=== PATIENT | male | born 1945 | race Caucasian/White ===

== ENCOUNTER 2016-12-16 09:23 | Inpatient (IN) | payer MEDICARE, BC ==
[~2016-12-16] VITALS: Ht 172.7 cm; Wt 63.6 kg
[~2016-12-16 09:23] MED LIST: AMIO200T2 PO; AMLO-218 PO; APIX5TAB PO; CALC667T2 PO; LACT10SO5 PO; LISI20TA11 PO; LORA10CA PO; SYN1 PO
--- NOTE | 2016-12-16 10:22 | RADRPT ---
PROCEDURE: CHEST 1VW CLINICAL INDICATION: Hypotension TECHNIQUE: Single frontal view of the chest was obtained COMPARISON: None. FINDINGS: The cardiac size is severe cardiomegaly. Aortic vascular calcifications are demonstrated. There is mild pulmonary vascular congestion. Trace bilateral effusions with associated atelectasis. Mild degenerative changes of the visualized osseous structures are visualized. IMPRESSION: 1. Severe cardiomegaly with mild pulmonary vascular congestion, interstitial edema, and trace bilate ral effusions with associated atelectasis. 2. Atherosclerosis. RPTAT:PP .Cortes Beal MD, MD Date Time Electronically viewed and signed by .Cortes Beal MD, on 12/16/2016 10:21 .V/
[2016-12-16] MEDS ORDERED: ASPI-664 PO (10:23)
[2016-12-16] MEDS ORDERED: ATOR20TA38 PO (10:24)
[2016-12-16] MEDS ORDERED: ESCI5TAB PO (10:27)
[2016-12-16] MEDS ORDERED: TEMA15CA6 PO (10:28)
[2016-12-16] MEDS ORDERED: LEVA0.634 INHALATION (10:29)
[2016-12-16 10:36] LABS: ADD SCAN DIFF NO
[2016-12-16 10:55] LABS: BASOPHIL # 0.1 10^3/ul (0.0-0.1); BASOPHILS % 0.3 % (0.0-2.0); EOSINOPHILS # 0.1 10^3/ul (0.0-0.5); EOSINOPHILS % 0.7 % (0.0-7.0); HEMATOCRIT 25.8 % (42.0-52.0); HEMOGLOBIN 8.3 g/dl (14.0-18.0); LYMPHOCYTES # 0.8 10^3/ul (0.8-2.9); LYMPHOCYTES % 4.3 % (15.0-51.0); MEAN CORPUSCULAR HEMOGLOBIN 28.7 pg (29.0-33.0); MEAN CORPUSCULAR HGB CONC 32.2 g/dl (32.0-37.0); MEAN CORPUSCULAR VOLUME 89.3 fl (82.0-101.0); MEAN PLATELET VOLUME 9.9 fl (7.4-10.4); MONOCYTE # 1.3 10^3/ul (0.3-0.9); MONOCYTES % 7.1 % (0.0-11.0); NEUTROPHIL # 16.1 10^3/ul (1.6-7.5); NEUTROPHILS % 85.5 % (39.0-77.0); PLATELET COUNT 451 10^3/UL (140-415); RED BLOOD COUNT 2.89 10^6/ul (4.70-6.10); RED CELL DISTRIBUTION WIDTH 17.4 % (11.5-14.5); WHITE BLOOD COUNT 18.8 10^3/ul (4.8-10.8)
[2016-12-16 11:03] LABS: ALANINE AMINOTRANSFERASE 28 IU/L (13-69); ALBUMIN/GLOBULIN RATIO 0.76; ALKALINE PHOSPHATASE 228 IU/L (42-121); ANION GAP 16 (8-16); ASPARTATE AMINO TRANSFERASE 20 IU/L (15-46); BILIRUBIN,INDIRECT 0.1 mg/dl (0-1.1); BILIRUBIN,TOTAL 0.4 mg/dl (0.2-1.3); BLOOD UREA NITROGEN 46 mg/dl (7-20); CALCIUM 8.8 mg/dl (8.4-10.2); CARBON DIOXIDE 30 mmol/L (21-31); CHLORIDE 92 mmol/L (97-110); CREATININE 5.33 mg/dl (0.61-1.24); GLUCOSE 133 mg/dl (70-220); POTASSIUM 4.4 mmol/L (3.5-5.1); SODIUM 134 mmol/L (135-144); TOTAL PROTEIN 6.9 g/dl (6.1-8.1)
[2016-12-16 11:27] LABS: B-TYPE NATRIURETIC PEPTIDE 54300 PG/ML (0-125); TROPONIN-I < 0.012 ng/ml (0.00-0.12)
--- NOTE | 2016-12-16 11:34 | ERA ---
ER Documentation Chief Complaint Date/Time DATE: 12/16/16 TIME: 11:34 Chief Complaint hypotension HPI 71-year-old male legally blind with a history of end-stage renal disease on dialysis M/W/F, hypertension, COPD, hyperlipidemia, chronic atrial fibrillation on Eliquis and hypothyroidism sent to the ED by rescue ambulance from dialysis unit for hypotension. Apparently dialysis could not be performed because his blood pressure was low he was sent to the ED for further evaluation. Patient complains of mild shortness of breath but denies chest pain or palpitations. No abdominal pain, nausea vomiting. No headache or neck pain. No leg pain or swelling. No fevers or chills. ROS All systems reviewed and are negative except as per history of present illness. Medications Home Meds Reported Medications Levalbuterol Hcl* (Levalbuterol Hcl*) 0.63 Mg/3 Ml Vial.neb, 0.63 MG INHALATION Q6H Y for WHEEZING AND SOB, VIAL 12/16/16 Temazepam* (Restoril*) 15 Mg Capsule, 15 MG PO HS Y for INSOMNIA, CAP 12/16/16 Escitalopram Oxalate* (Lexapro*) Unknown Strength Tablet, PO DAILY, #30 TAB 12/16/16 Atorvastatin Calcium* (Atorvastatin Calcium*) 20 Mg Tablet, 20 MG PO QHS, #30 TAB 12/16/16 Aspirin (Low Dose Aspirin) 81 Mg Tablet.dr, 81 MG PO DAILY, #30 TAB 12/16/16 Lactulose* (Lactulose*) 10 Gm/15 Ml Solution, 20 GM PO HS, ML 04/15/16 Calcium Acetate* (Phoslo*) 667 Mg Tablet, 667 MG PO WITH MEALS, TAB 04/15/16 Lisinopril* (Lisinopril*) 20 Mg Tablet, 20 MG PO DAILY, #30 TAB 04/15/16 Levothyroxine Sodium* (Synthroid*) 100 Mcg Tablet, 100 MCG PO BEFORE BREAKFAST, #30 TAB 04/15/16 Apixaban* (Eliquis*) 5 Mg Tablet, 5 MG PO BID, TAB 04/15/16 Amiodarone Hcl* (Amiodarone Hcl*) 200 Mg Tablet, 200 MG PO DAILY, #30 TAB 04/15/16 Loratadine* (Claritin*) 10 Mg Capsule, 10 MG PO DAILY, CAP 04/15/16 Discontinued Reported Medications Amlodipine Besylate* (Norvasc*) 10 Mg Tablet, 10 MG PO DAILY, TAB 04/15/16 Allergies Allergies: Coded Allergies: No Known Allergy (Unverified , 12/16/16) PMhx/Soc Reviewed in chart. As per HPI. History of Surgery: Yes (R CATARACT AV shunt left upper extremity) Anesthesia Reaction: No Hx Neurological Disorder: Yes (CVA, GEN WEAKNESS) Hx Respiratory Disorders: Yes (ASTHMA) Hx Cardiac Disorders: Yes (A-FIB, HTN) Hx Psychiatric Problems: Yes (DEPRESSION) Hx Alcohol Use: No Hx Substance Use: No Hx Tobacco Use: No FmHx Not relevant to presenting complaint Physical Exam Vitals Vital Signs Date Time Temp Pulse Resp B/P Pulse Ox O2 Delivery O2 Flow Rate FiO2 12/16/16 10:11 Nasal Cannula 12/16/16 09:26 97.5 69 18 97/56 97 Physical Exam Const: Alert, moderate distress. Head: Atraumatic Eyes: Normal Conjunctiva ENT: Normal External Ears, Nose and Mouth. Neck: Full range of motion. JVD Resp: Breath sounds diminished bilaterally with crackles extending care home up both lung [place]. No wheezing. Cardio: Irregular and rhythm, no murmurs Abd: Soft, non tender, non distended. Normal bowel sounds Skin: No petechiae or rashes Back: No midline or flank tenderness Ext: No cyanosis, or edema. AV shunt left upper extremity with palpable thrill. Wound left heel. Neur: Awake and alert Psych: Normal Mood and Affect Result Diagram: 12/16/16 1020 12/16/16 1020 Results 24 hrs Laboratory Tests Test 12/16/16 10:20 White Blood Count 18.810^3/ul Red Blood Count 2.8910^6/ul Hemoglobin 8.3g/dl Hematocrit 25.8% Mean Corpuscular Volume 89.3fl Mean Corpuscular Hemoglobin 28.7pg Mean Corpuscular Hemoglobin Concent 32.2g/dl Red Cell Distribution Width 17.4% Platelet Count 39736^3/UL Mean Platelet Volume 9.9fl Neutrophils % 85.5% Lymphocytes % 4.3% Monocytes % 7.1% Eosinophils % 0.7% Basophils % 0.3% Nucleated Red Blood Cells % 0.0/100WBC Neutrophils # 16.110^3/ul Lymphocytes # 0.810^3/ul Monocytes # 1.310^3/ul Eosinophils # 0.110^3/ul Basophils # 0.110^3/ul Nucleated Red Blood Cells # 0.010^3/ul Sodium Level 134mmol/L Potassium Level 4.4mmol/L Chloride Level 92mmol/L Carbon Dioxide Level 30mmol/L Anion Gap 16 Blood Urea Nitrogen 46mg/dl Creatinine 5.33mg/dl Glucose Level 133mg/dl Calcium Level 8.8mg/dl Total Bilirubin 0.4mg/dl Direct Bilirubin 0.30mg/dl Indirect Bilirubin 0.1mg/dl Aspartate Amino Transf (AST/SGOT) 20IU/L Alanine Aminotransferase (ALT/SGPT) 28IU/L Alkaline Phosphatase 228IU/L Troponin I < 0.012ng/ml B-Type Natriuretic Peptide 50193KR/ML Total Protein 6.9g/dl Albumin 3.0g/dl Globulin 3.90g/dl Albumin/Globulin Ratio 0.76 Current Medications Medications (Trade) Dose Ordered Sig/Marv Route PRN Reason Start Time Stop Time Status Last Admin Dose Admin Ondansetron HCl (Zofran Inj) 4 mg ER BRIDGE PRN IV NAUSEA AND/OR VOMITING 12/16/16 12:30 12/17/16 12:29 Acetaminophen (Tylenol Tab) 650 mg ER BRIDGE PRN PO MILD PAIN/FEVER 12/16/16 12:30 12/17/16 12:29 EKG: TIME: 09:48. Atrial fibrillation. Ventricular rate 70. No acute ST segment elevation or depression. Poor R-wave progression in the anterior leads. EP Interpretation: Abnormal EKG. IMAGING: PROCEDURE: CHEST 1VW CLINICAL INDICATION: Hypotension TECHNIQUE: Single frontal view of the chest was obtained COMPARISON: None. FINDINGS: The cardiac size is severe cardiomegaly. Aortic vascular calcifications are demonstrated. There is mild pulmonary vascular congestion. Trace bilateral effusions with associated atelectasis. Mild degenerative changes of the visualized osseous structures are visualized. IMPRESSION: 1. Severe cardiomegaly with mild pulmonary vascular congestion, interstitial edema, and trace bilateral effusions with associated atelectasis. 2. Atherosclerosis. RPTAT:PP .Cortes Beal MD, MD Date Time Electronically viewed and signed by .Cortes Beal MD, MD on 12/16/2016 10:21 .V/ Procedures/MDM DOCUMENTS REVIEWED: ED nurse, clinic notes, dialysis MEDICAL DECISION MAKIN-year-old male legally blind with a history of end- stage renal disease on dialysis M/W/F, hypertension, COPD, hyperlipidemia, chronic atrial fibrillation on Eliquis and hypothyroidism sent to the ED by rescue ambulance from dialysis unit for hypotension. Patient observed in the ED for approximately 3 hours. Blood pressure is normal and hemodynamically stable. No hyperkalemia but radiographic evidence of volume overload with shortness of breath. Leukocytosis of uncertain etiology. No pneumonia. Abdominal exam is benign without tenderness, rebound, guarding or signs of peritonitis. Leukocytosis possibly secondary to left heel wound. Patient will be admitted to telemetry observation for urgent dialysis. Counseled patient regarding diagnosis, diagnostic results and plan for admission. CALLS/CONSULTS: Time 12:00, Dr. Alonso, Recommends admission to telemetry observation. PATIENT CARE TRANSITIONED: Time: 12:05, Dr. Alonso. Departure Diagnosis: Primary Impression: Hypotension Qualified Code: I95.9 - Hypotension, unspecified hypotension type Additional Impressions: End stage renal disease on dialysis Volume overload Qualified Code: E87.70 - Hypervolemia, unspecified hypervolemia type Leukocytosis Qualified Code: D72.829 - Leukocytosis, unspecified type Non healing left heel wound Chronic atrial fibrillation Condition: Serious AMADEO ESTES MD December 16, 2016 11:34
[2016-12-16] MEDS ORDERED: ACETAMINOPHEN 325 MG TAB PO PRN (12:30)
[2016-12-16] MEDS ORDERED: ONDANSETRON 4 MG INJ IV PRN ×2 (12:30→16:30)
[2016-12-16] MEDS ORDERED: LEVOFLOXACIN 500MG/D5W (PMX) 100 ML IVPB ONE (13:00)
[2016-12-16] MEDS ORDERED: VANCOMYCIN 1 GM (PMX) 250 ML IVPB SCH (13:00)
--- NOTE | 2016-12-16 13:27 | RADRPT ---
PROCEDURE: XR Left Foot. CLINICAL INDICATION: Left foot pain. TECHNIQUE: Three views. Frontal, lateral, and oblique. COMPARISON: None. FINDINGS: There is no fracture or dislocation. Vascular calcifications are present consistent with atherosclerosis. There is diffuse osteopenia. There are degenerative changes of the first metatarsal phalangeal join t with osteophytes noted. There is no lytic or blastic lesion. There is no radiopaque foreign body. IMPRESSION: 1. Atherosclerosis. 2. Diffuse osteopenia. 3. Degenerative change of the first metatarsal phalangeal joint. 4. No lytic lesion. No evidence of osteomyelitis. RPTAT: QQ .Kalpesh Hollingsworth MD, MD Date Time Electronically viewed and signed by .Kalpesh Hollingsworth MD, on 12/16/2016 13:27 .R/
--- NOTE | 2016-12-16 16:02 | CONS ---
Date/Time of Note Date/Time of Note DATE: 12/16/16 TIME: 15:59 Assessment/Plan Assessment/Plan Chief Complaint/Hosp Course [id number] A/P SEPSIS ESRD HTN COPD AFIB ASHD DYSLIPEDEMIA PLAN HD NEEDED AND MWF ANTIBIOTIC Problems: Consultation Date/Type/Reason Admit Date/Time Initial Consult Date Type of Consultation: RENAL 24 HR Interval Summary Constitutional: no complaints Exam/Review of Systems Vital Signs Vitals Vital Signs Date Time Temp Pulse Resp B/P Pulse Ox O2 Delivery O2 Flow Rate FiO2 12/16/16 12:28 98.0 63 126/66 12/16/16 10:11 Nasal Cannula 12/16/16 09:26 18 97 Exam Neck: supple Respiratory: diminished breath sounds Cardiovascular: regular rate and rhythm Gastrointestinal: bowel sounds, soft Results Result Diagram: 12/16/16 1020 12/16/16 1020 Results 24 hrs Laboratory Tests Test 12/16/16 10:20 White Blood Count 18.8 H Red Blood Count 2.89 L Hemoglobin 8.3 L Hematocrit 25.8 L Mean Corpuscular Volume 89.3 Mean Corpuscular Hemoglobin 28.7 L Mean Corpuscular Hemoglobin Concent 32.2 Red Cell Distribution Width 17.4 H Platelet Count 451 H Mean Platelet Volume 9.9 Neutrophils % 85.5 H Lymphocytes % 4.3 L Monocytes % 7.1 Eosinophils % 0.7 Basophils % 0.3 Nucleated Red Blood Cells % 0.0 Neutrophils # 16.1 H Lymphocytes # 0.8 Monocytes # 1.3 H Eosinophils # 0.1 Basophils # 0.1 Nucleated Red Blood Cells # 0.0 Sodium Level 134 L Potassium Level 4.4 Chloride Level 92 L Carbon Dioxide Level 30 Anion Gap 16 Blood Urea Nitrogen 46 H Creatinine 5.33 H Glucose Level 133 Calcium Level 8.8 Total Bilirubin 0.4 Direct Bilirubin 0.30 H Indirect Bilirubin 0.1 Aspartate Amino Transf (AST/SGOT) 20 Alanine Aminotransferase (ALT/SGPT) 28 Alkaline Phosphatase 228 H Troponin I < 0.012 B-Type Natriuretic Peptide 33031 H Total Protein 6.9 Albumin 3.0 L Globulin 3.90 H Albumin/Globulin Ratio 0.76 MAGUI PINEDA MD December 16, 2016 16:02
[2016-12-16 16:18] VITALS: TEMP 98.1
[2016-12-16] MEDS ORDERED: VANCOMYCIN IV PER PHARMACY XX SCH (16:30)
[2016-12-16] MEDS ORDERED: LEVALBUTEROL (NEB) 0.63 MG/3 ML AMP NEB PRN (16:30)
[2016-12-16] MEDS ORDERED: LEVOFLOXACIN 500MG/D5W (PMX) 100 ML IVPB SCH (16:30)
--- NOTE | 2016-12-16 16:37 | HP ---
Date/Time of Note Date/Time of Note DATE: 12/16/16 TIME: 16:35 Assessment/Plan VTE Prophylaxis VTE Prophylaxis Intervention: other (eliquis) Lines/Catheters IV Catheter Type (from Nrs): Saline Lock Assessment/Plan Assessment/Plan 71 yo M sent from dialysis center w due to low blood pressure during hemodialysis managed for the followin. Sepsis likely secondary to infected heel ulcer with impending shock 2. Fluid overload likely secondary to incomplete hemodialysis 3. Infected heel ulcer left leg 4. Hypothyroidism 5. High blood pressure: controlled 6. Chronic atrial fibrillation rate controlled 7. Reported history of diabetes type 2 controlled 8. Dyslipidemia 9. End-stage renal disease on hemodialysis Monday / Monday / Monday 10. Anemia of chronic kidney disease 11. History of cirrhosis Plan: 1. Admit patient to telemetry floor 2. Obtain blood and wound cultures / begin empiric antibiotics / ID consult 3. Podiatry consult for leg wound / probable MRI to rule out osteo-if okay with podiatry / wound care consult for in-house dressings. 4. Continue home medications for atrial fibrillation, high blood pressure, thyroid disease and dyslipidemia 5. Patient may need HD today as CXR still shows fluid overload 6. PRN pain control/ antiemetics/ antipyretics/ supportive care Prophylaxis: Eliquis/PPI HPI/ROS Admit Date/Time Admit Date/Time December 16, 2016 Hx of Present Illness Presenting complaint: Low blood pressure History of presenting complaint: 71-year-old male sent to the emergency room from dialysis center after he was found to have low blood pressure while there. Patient is a poor historian he is unable to tell me much more. He just tells me he is doing okay. He also denies any form of pain apart from pain in his left leg. Evaluation of his left leg reveals a deep pressure ulcer that could be infected and be a source of infection. Patient is being admitted for antibiotic wound care podiatry review and further management. He will also need to be continued on hemodialysis in-house. ROS Unable to obtain as patient is very poor historian. See HPI for findings. PMH/Family/Social Past Medical History 1. End-stage renal disease on hemodialysis 2. Hypothyroidism 3. Dyslipidemia 4. Chronic atrial fibrillation 5. Chronic anemia 6. Diabetes mellitus 7. Asthma 8. Cirrhosis Past Surgical History 1. Cataract surgery 2. [employer] shunt left arm. Family History Significant Family History: other (non contributory) Social History Resides in [facility] facility. Smoking Status: Current every day smoker Exam/Review of Systems Vital Signs Vitals Vital Signs Date Time Temp Pulse Resp B/P Pulse Ox O2 Delivery O2 Flow Rate FiO2 12/16/16 16:18 98.1 71 113/71 12/16/16 10:11 Nasal Cannula 12/16/16 09:26 18 97 Exam Exam General. Alert oriented to self place but not date and time elderly male, no distress. HEENT: Normocephalic, atraumatic, pupils equal and reactive, mild conjunctival pallor, mild scleral icterus Neck: Supple, nontender, no adenopathy Chest: Diminished breath sounds bilaterally, probable faint crackles in the bases bilaterally, detailed exam difficult. Cardiovascular: Irregularly irregular heart sounds, no murmur. Abdomen: Soft nontender nondistended with normoactive bowel sounds. Extremities: Left lower extremity with stage IV ulcer on the heel and yellowish discoloration, large AV shunt left upper extremity with palpable bruit. Neuro: Alert, no focal deficit, elderly male, mildly lethargic Psych: Forgetful, cooperative with exam. Calm Labs Result Diagram: 12/16/16 1020 12/16/16 1020 Medications Medications Current Medications Amiodarone HCl (Cordarone) 200 mg DAILY PO ; Start 12/17/16 at 09:00; Status UNV Apixaban (Eliquis) 5 mg BID PO ; Start 12/16/16 at 21:00; Status UNV Aspirin (Halfprin) 81 mg DAILY PO ; Start 12/17/16 at 09:00; Status UNV Atorvastatin Calcium (Lipitor) 20 mg QHS PO ; Start 12/16/16 at 21:00; Status UNV Lactulose (Enulose) 20 gm HS PO ; Start 12/16/16 at 21:00; Status UNV Levalbuterol (Xopenex Neb) 0.63 mg Q6H PRN NEB WHEEZING AND SOB; Start 12/16/16 at 16:30; Status UNV Lisinopril (Zestril) 20 mg DAILY PO ; Start 12/17/16 at 09:00; Status UNV Loratadine (Claritin) 10 mg DAILY PO ; Start 12/17/16 at 09:00; Status UNV Miscellaneous Information 15 mg HS PRN PO INSOMNIA; Start 12/16/16 at 16:30; Status UNV Escitalopram Oxalate 5 mg 5 mg DAILY PO ; Start 12/17/16 at 09:00; Status UNV Levofloxacin/ Dextrose (Levaquin 500mg/ D5W 100 ml (Pmx)) 100 ml @ 100 mls/hr Q48H IVPB ; Start 12/16/16 at 16:30; Status UNV Ondansetron HCl (Zofran Inj) 4 mg Q6H PRN IV NAUSEA AND/OR VOMITING; Start 12/16 at 16:30; Status UNV Pantoprazole (Protonix Tab) 40 mg DAILY@06 PO ; Start 12/17/16 at 06:00; Status UNV Heparin Sodium (Porcine) (Heparin (5000 Units/0.5 ml)) 5,000 unit BID SC ; Start 12/16/16 at 21:00; Status UNV Acetaminophen (Tylenol Tab) 650 mg Q6H PRN PO PAIN AND OR ELEVATED TEMP; Start 12/16/16 at 16:30; Status UNV Procedures Procedures Laboratory Tests Test 12/16/16 10:20 White Blood Count 18.810^3/ul Red Blood Count 2.8910^6/ul Hemoglobin 8.3g/dl Hematocrit 25.8% Mean Corpuscular Volume 89.3fl Mean Corpuscular Hemoglobin 28.7pg Mean Corpuscular Hemoglobin Concent 32.2g/dl Red Cell Distribution Width 17.4% Platelet Count 84850^3/UL Mean Platelet Volume 9.9fl Neutrophils % 85.5% Lymphocytes % 4.3% Monocytes % 7.1% Eosinophils % 0.7% Basophils % 0.3% Nucleated Red Blood Cells % 0.0/100WBC Neutrophils # 16.110^3/ul Lymphocytes # 0.810^3/ul Monocytes # 1.310^3/ul Eosinophils # 0.110^3/ul Basophils # 0.110^3/ul Nucleated Red Blood Cells # 0.010^3/ul Sodium Level 134mmol/L Potassium Level 4.4mmol/L Chloride Level 92mmol/L Carbon Dioxide Level 30mmol/L Anion Gap 16 Blood Urea Nitrogen 46mg/dl Creatinine 5.33mg/dl Glucose Level 133mg/dl Calcium Level 8.8mg/dl Total Bilirubin 0.4mg/dl Direct Bilirubin 0.30mg/dl Indirect Bilirubin 0.1mg/dl Aspartate Amino Transf (AST/SGOT) 20IU/L Alanine Aminotransferase (ALT/SGPT) 28IU/L Alkaline Phosphatase 228IU/L Troponin I < 0.012ng/ml B-Type Natriuretic Peptide 38686EW/ML Total Protein 6.9g/dl Albumin 3.0g/dl Globulin 3.90g/dl Albumin/Globulin Ratio 0.76 Current Medications Medications (Trade) Dose Ordered Sig/Marv Route PRN Reason Start Time Stop Time Status Last Admin Dose Admin Ondansetron HCl (Zofran Inj) 4 mg ER BRIDGE PRN IV NAUSEA AND/OR VOMITING 12/16/16 12:30 12/16/16 17:36 DC Acetaminophen 650 mg 650 mg ER BRIDGE PRN PO MILD PAIN/FEVER 12/16/16 12:30 12/16/16 17:36 DC Vancomycin HCl 250 ml @ 125 mls/hr ONCE IVPB 12/16/16 13:00 12/16/16 14:59 DC 12/16/16 13:00 Levofloxacin/ Dextrose (Levaquin 500mg/ D5W 100 ml (Pmx)) 100 ml @ 100 mls/hr ONCE ONCE IVPB 12/16/16 13:00 12/16/16 13:59 DC 12/16/16 14:29 Amiodarone HCl (Cordarone) 200 mg DAILY PO 12/17/16 09:00 Apixaban (Eliquis) 5 mg BID PO 12/16/16 21:00 Aspirin (Halfprin) 81 mg DAILY PO 12/17/16 09:00 Atorvastatin Calcium (Lipitor) 20 mg QHS PO 12/16/16 21:00 Calcium Acetate (Phoslo) 667 mg WITH MEALS PO 12/16/16 17:55 Lactulose (Enulose) 20 gm HS PO 12/16/16 21:00 Levalbuterol (Xopenex Neb) 0.63 mg Q6H RESP THERAPY PRN NEB WHEEZING AND SOB 12/16/16 16:30 Levothyroxine Sodium (Synthroid) 100 mcg BEFORE BREAKFAST PO 12/17/16 07:00 Lisinopril (Zestril) 20 mg DAILY PO 12/17/16 09:00 Loratadine (Claritin) 10 mg DAILY PO 12/17/16 09:00 Zolpidem Tartrate (Ambien) 5 mg HS PRN PO INSOMNIA 12/16/16 18:00 Escitalopram Oxalate (Lexapro) 5 mg DAILY PO 12/17/16 09:00 Vancomycin HCl VANCOMYCIN PER PHARMACY PER PROTOCOL XX 12/16/16 16:30 UNV Levofloxacin/ Dextrose (Levaquin 500mg/ D5W 100 ml (Pmx)) 100 ml @ 100 mls/hr Q48H IVPB 12/16/16 16:30 12/16/16 17:36 DC Ondansetron HCl (Zofran Inj) 4 mg Q6H PRN IV NAUSEA AND/OR VOMITING 12/16/16 16:30 Pantoprazole (Protonix Tab) 40 mg DAILY@06 PO 12/17/16 06:00 Heparin Sodium (Porcine) (Heparin (5000 Units/0.5 ml)) 5,000 unit BID SC 12/16/16 21:00 Acetaminophen 650 mg 650 mg Q6H PRN PO PAIN AND OR ELEVATED TEMP 12/16/16 16:30 Levofloxacin/ Dextrose (Levaquin 500mg/ D5W 100 ml (Pmx)) 100 ml @ 100 mls/hr Q48H IVPB 12/18/16 14:30 ROCEDURE: XR Left Foot. CLINICAL INDICATION: Left foot pain. TECHNIQUE: Three views. Frontal, lateral, and oblique. COMPARISON: None. FINDINGS: There is no fracture or dislocation. Vascular calcifications are present consistent with atherosclerosis. There is diffuse osteopenia. There are degenerative changes of the first metatarsal phalangeal joint with osteophytes noted. There is no lytic or blastic lesion. There is no radiopaque foreign body. IMPRESSION: 1. Atherosclerosis. 2. Diffuse osteopenia. 3. Degenerative change of the first metatarsal phalangeal joint. 4. No lytic lesion. No evidence of osteomyelitis. RPTAT: QQ .Kalpesh Hollingsworth MD, MD Date Time Electronically viewed and signed by .Kalpesh Hollingsworth MD, MD on 12/16/2016 13:27 .R/ CC: AMADEO ESTES MD PROCEDURE: CHEST 1VW CLINICAL INDICATION: Hypotension TECHNIQUE: Single frontal view of the chest was obtained COMPARISON: None. FINDINGS: The cardiac size is severe cardiomegaly. Aortic vascular calcifications are demonstrated. There is mild pulmonary vascular congestion. Trace bilateral effusions with associated atelectasis. Mild degenerative changes of the visualized osseous structures are visualized. IMPRESSION: 1. Severe cardiomegaly with mild pulmonary vascular congestion, interstitial edema, and trace bilateral effusions with associated atelectasis. 2. Atherosclerosis. RPTAT:PP .Cortes Beal MD, MD Date Time Electronically viewed and signed by .Cortes Beal MD, MD on 12/16/2016 10:21 .V/ CC: AMADEO ESTES MD, B[place]AT[place] M. December 16, 2016 16:37
--- NOTE | 2016-12-16 16:49 | CONS ---
DATE OF ADMISSION: 12/16/2016 DATE OF CONSULTATION: TYPE OF CONSULTATION: Nephrology. Asked by Dr. Alonso to see this patient in consultation. HISTORY OF PRESENT ILLNESS: Patient with a history of ESRD, legal blindness, a history of hypertens ion, COPD, dyslipidemia, a history of atrial fibrillation and hypothyroidism. The patient presented with a low blood pressure and, as per patient, he could not do dialysis. He denies any chest pain or palpitations at this point and was noted to have a blood pressure earlier of 97/56. Current bloo d pressure is 126/56. The patient is admitted for further management. PAST MEDICAL HISTORY: ESRD, AV fistula in the left upper extremity. The patient has atrial fibrill ation, hypertension, COPD, dyslipidemia, and hypothyroidism. ALLERGY HISTORY: NEGATIVE. FAMILY HISTORY: Negative. SOCIAL HISTORY: He denies. MEDICATION HISTORY: The patient is on: 1. Amiodarone. 2. Eliquis. 3. Aspirin. 4. Lipitor. 5. Calcium acetate. 6. Celexa. 7. Lactulose. 8. Levothyroxine. 9. Lisinopril. 10. Loratadine. 11. Temazepam. REVIEW OF SYSTEMS: HEENT: Unremarkable. RESPIRATORY: Unremarkable. ABDOMEN: Unremarkable. EXTREMITIES: The patient has a dressing on the left lower extremity. PHYSICAL EXAMINATION: GENERAL: The patient is a thin-looking male, awake, alert. VITAL SIGNS: Pulse of 53, blood pressure 126/66. HEAD: Atraumatic, normocephalic. Pale conjunctivae. No icterus. NECK: Supple. LUNGS: Clear. CARDIOVASCULAR: S1, S2 normal. Systolic murmur noted at the apex. ABDOMEN: Soft, nontender. Bowel sounds present. No palpable mass. EXTREMITIES: No cyanosis, clubbing, or edema. Left leg dressing noted. No discharge noted at this point. CENTRAL NERVOUS SYSTEM: The patient is awake, alert, weak. Moving both upper and lower extremities . LABORATORY: Sodium 131, potassium 4.4, BUN 46, creatinine 4.33. BNP 300. Chest x-ray: Cardi omegaly, mild pulmonary vascular congestion and interstitial edema. Foot x-ray: Atherosclerosis, d iffuse osteopenia, DJD of the first metatarsophalangeal joint. IMPRESSION: 1. Patient has possible systemic inflammatory response syndrome. 2. Leukocytosis, possible sepsis. 3. End-stage renal disease. 4. Hypertension. 5. Chronic obstructive pulmonary disease. 6. Atrial fibrillation. 7. Anemia. 8. Elevated BNP. Clinical: The patient's chest x-ray shows pulmonary edema. Incomplete database. PLAN: The patient received vancomycin and levofloxacin. The patient should have broad spectrum ant ibiotics. The patient's respiratory status seems to be stable. Dialysis will be done based upon e patient's clinical condition. Thank you, Dr. Alonso, for kindly asking me to see this patient in nephrology consultation. Dictated By: MAGUI PINEDA MD BS/NTS Conf#: [id number] DID#: [id number]
[2016-12-16 18:00] VITALS: BP 103/58; PULSE 64; RESP 16
[2016-12-16] MEDS ORDERED: ZOLPIDEM 5 MG TAB PO PRN (18:00)
[2016-12-16] MEDS: CALCIUM ACETATE 667 MG CAP PO SCH (18:08)
[2016-12-16] MEDS ORDERED: SILVER SULFADIAZINE 1% 400 GM CR TOP ONE (18:30)
[2016-12-16 20:00] VITALS: PULSE 60; Ht 172.7 cm; Wt 63.6 kg
[2016-12-16 20:31] VITALS: BP 102/59; RESP 20
[2016-12-16] MEDS: APIXABAN 5 MG TABLET PO SCH (20:35)
[2016-12-16] MEDS: ACETAMINOPHEN 325 MG TAB PO PRN (20:35)
[2016-12-16] MEDS: ATORVASTATIN 20 MG TAB PO SCH (20:35)
[2016-12-16] MEDS: LACTULOSE 30ML CUP PO SCH (20:36)
[2016-12-16] MEDS ORDERED: HEPARIN 5,000 UNIT/0.5 ML VIAL SC SCH (21:00)
--- NOTE | 2016-12-16 23:59 | CONS ---
DATE OF ADMISSION: 12/16/2016 DATE OF CONSULTATION: 12/16/2016 CHIEF COMPLAINT: Left foot and ankle ulceration. HISTORY OF PRESENT ILLNESS: This is a 71-year-old gentleman, who was admitted through the ER from [facility]. The patient with hypotension upon admission, and dialysis could not be performed. Patient admitted with leukocytosis. He as ulceration to the left foot and ankle with extensive tissue loss . The patient has had multiple prior surgeries. The patient is unable to give accurate record of s equence of events, and when and who performed the surgery. PAST MEDICAL HISTORY: End-stage renal disease on hemodialysis, hypertension, COPD, hyperlipidemia, chronic AFib, hypothyroidism, , chronic anemia, diabetes, asthma, psoriasis. MEDICATIONS: Levalbuterol, Restoril 50 mg p.o. daily, Lexapro, atorvastatin 20 mg daily, aspirin 81 mg daily, lactulose, lisinopril 20 mg p.o. daily, Synthroid 100 mcg p.o. at bedtime, Eliquis 5 mg p.o. b.i.d., amiodarone 200 mg p.o. daily, Levaquin, vancomycin. 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 FAMILY HISTORY: Noncontributory. SOCIAL HISTORY: The patient resides in a detention facility. Tobacco use daily. PHYSICAL EXAMINATION: VITAL SIGNS: Temperature 98.1, pulse 71, respiratory rate 18, blood pressure 113/71, pulse ox 97%. GENERAL: Patient awake, in no distress. HEAD: Normocephalic, atraumatic. Trachea is midline. PULMONARY: Regular respiration. EXTREMITIES: Patient with skin, muscle atrophy, multiple abrasions of lower extremity. No palpable pedal pulses. There is 2+ popliteal pulse. Patient with extensive tissue loss, with exposed peron eal tendons, Achilles tendon, calcaneus, and fibula, the presence of necrotic subcutaneous tissue. Skin is dry. No signs of decubitus ulceration to the posterior heel. Nails are dystrophic. LABORATORIES: WBC 18.8, hemoglobin 8.3, hematocrit 25.8, platelets 451. Sodium 134, potassium 4.4, chloride 92, CO2 30, BUN is 46, creatinine 5.3, glucose 133. Foot x-ray: Atherosclerosis, diffuse osteopenia, degenerative joint changes. Chest x-ray: Severe cardiomegaly with mild pulmonary vasc ular congestion and interstitial edema, trace bilateral effusions with atelectasis, atherosclerosis. ASSESSMENT: 1. Left foot and ankle ulceration with extensive soft tissue loss. The patient is postsurgical sta tus, suspect osteomyelitis. 2. Cellulitis. 3. Diabetes type 2. 4. End-stage renal disease on hemodialysis. 5. Peripheral arterial disease. PLAN: The patient seen and evaluated. Obtain MRI with contrast, vascular consultation with Dr. Vernon maier. Initiate topical antiseptic precautions, daily Dakin's cleansing, and application of Silvadene b .i.d. The patient is currently on broad-spectrum antibiotics including vancomycin and Levaquin. We will continue to follow along in house, may require sequential debridement. Dictated By: DARYN GARDNER/BAKARI Conf#: [id number] DID#: [id number]
[2016-12-17] VITALS (22 sets, daily range): BP systolic 92–119; BP diastolic 34–68; PULSE 50–80; RESP 16–20
[2016-12-17] MEDS: PANTOPRAZOLE (EC) 40 MG TAB PO SCH (06:03)
[2016-12-17] MEDS: LEVOTHYROXINE 100 MCG TAB PO SCH (06:03)
[2016-12-17] MEDS: CALCIUM ACETATE 667 MG CAP PO SCH ×3 (08:55→17:47)
[2016-12-17] MEDS: ESCITALOPRAM 10 MG TAB PO SCH (08:55)
[2016-12-17] MEDS: LORATADINE 10 MG TAB PO SCH (08:55)
[2016-12-17] MEDS: APIXABAN 5 MG TABLET PO SCH ×2 (08:56→20:11)
[2016-12-17] MEDS: ASPIRIN (EC) 81 MG TAB PO SCH (08:56)
[2016-12-17] MEDS: SODIUM HYPOCHLORITE 1/40% 1L IRRIG IRR SCH ×2 (08:59→20:15)
[2016-12-17] MEDS: AMIODARONE 200 MG TAB PO SCH (09:00)
[2016-12-17] MEDS: LISINOPRIL 20 MG TAB PO SCH (09:00)
--- NOTE | 2016-12-17 09:14 | PN ---
Date/Time of Note Date/Time of Note DATE: 12/17/16 TIME: 09:08 Assessment/Plan VTE Prophylaxis VTE Prophylaxis Intervention: other (eliquis) Lines/Catheters IV [facility] Type [facility]from [facility] Saline Lock Assessment/Plan Assessment/Plan 71 yo M sent from dialysis center w due to low blood pressure during hemodialysis managed for the followin. Sepsis likely secondary to infected heel ulcer with impending shock 2. Fluid overload likely secondary to incomplete hemodialysis 3. Infected heel / ankle ulcer left leg 4. Hypothyroidism 5. High blood pressure: controlled 6. Chronic atrial fibrillation rate controlled 7. Reported history of diabetes type 2 controlled 8. Dyslipidemia 9. End-stage renal disease on hemodialysis Monday / Monday / Monday 10. Anemia of chronic kidney disease 11. History of cirrhosis likely 2/2 Hep B (Core ab positive) 12. PAD 13. Hyperphosphatemia / Mineral bone disease Plan: * foot MRI to r/o osteo still pending * close monitoring / transfer to ICU for pressor support if he further decompensates / albumin PRN * discuss goals of care with family * f/u ID and Vasc surgery recs * Phosphate binders per nephro * Continue supportive care and current abx Prophylaxis: Eliquis/PPI Prognosis: Guarded Subjective 24 Hr Interval Summary Free Text/Dictation still lethargic and unable to talk much Exam/Review of Systems Vital Signs Vitals Vital Signs Date Time Temp Pulse Resp B/P Pulse Ox O2 Delivery O2 Flow Rate FiO2 12/17/16 08:07 61 12/17/16 07:56 97.8 18 92/51 100 12/17/16 06:09 2.0 12/16/16 20:00 Nasal Cannula Intake and Output 12/16/16 12/16/16 12/17/16 15:00 23:00 07:00 Intake Total 120 ml Balance 120 ml Exam General. Alert oriented to self place but not date and time elderly male, no distress. HEENT: Normocephalic, atraumatic, pupils equal and reactive, mild conjunctival pallor, mild scleral icterus Neck: Supple, nontender, no adenopathy Chest: Diminished breath sounds bilaterally, probable faint crackles in the bases bilaterally, detailed exam difficult. Cardiovascular: Irregularly irregular heart sounds, no murmur. Abdomen: Soft nontender nondistended with normoactive bowel sounds. Extremities: Left lower extremity with stage IV ulcer on the diego and ankle with tissue loss and visible tendons, bandaged, large AV shunt left upper extremity with palpable bruit. Neuro: Alert, no focal deficit, elderly male, mildly lethargic Psych: Forgetful, cooperative with exam. Calm Results Result Diagram: 12/16/16 1020 12/16/16 1020 Results 24 hrs Laboratory Tests Test 12/16/16 10:20 White Blood Count 18.8 H Red Blood Count 2.89 L Hemoglobin 8.3 L Hematocrit 25.8 L Mean Corpuscular Volume 89.3 Mean Corpuscular Hemoglobin 28.7 L Mean Corpuscular Hemoglobin Concent 32.2 Red Cell Distribution Width 17.4 H Platelet Count 451 H Mean Platelet Volume 9.9 Neutrophils % 85.5 H Lymphocytes % 4.3 L Monocytes % 7.1 Eosinophils % 0.7 Basophils % 0.3 Nucleated Red Blood Cells % 0.0 Neutrophils # 16.1 H Lymphocytes # 0.8 Monocytes # 1.3 H Eosinophils # 0.1 Basophils # 0.1 Nucleated Red Blood Cells # 0.0 Sodium Level 134 L Potassium Level 4.4 Chloride Level 92 L Carbon Dioxide Level 30 Anion Gap 16 Blood Urea Nitrogen 46 H Creatinine 5.33 H Glucose Level 133 Calcium Level 8.8 Total Bilirubin 0.4 Direct Bilirubin 0.30 H Indirect Bilirubin 0.1 Aspartate Amino Transf (AST/SGOT) 20 Alanine Aminotransferase (ALT/SGPT) 28 Alkaline Phosphatase 228 H Troponin I < 0.012 B-Type Natriuretic Peptide 25982 H Total Protein 6.9 Albumin 3.0 L Globulin 3.90 H Albumin/Globulin Ratio 0.76 Medications Medications Current Medications Amiodarone HCl (Cordarone) 200 mg DAILY PO ; Start 12/17/16 at 09:00 Apixaban (Eliquis) 5 mg BID PO Last administered on 12/17/16 08:56; Admin Dose 5 MG; Start 12/16/16 at 21:00 Aspirin (Halfprin) 81 mg DAILY PO Last administered on 12/17/16 08:56; Admin Dose 81 MG; Start 12/17/16 at 09:00 Atorvastatin Calcium (Lipitor) 20 mg QHS PO Last administered on 12/16/16 20:35 ; Admin Dose 20 MG; Start 12/16/16 at 21:00 Lactulose (Enulose) 20 gm HS PO Last administered on 12/16/16 20:36; Admin Dose 20 GM; Start 12/16/16 at 21:00 Lisinopril (Zestril) 20 mg DAILY PO ; Start 12/17/16 at 09:00 Loratadine (Claritin) 10 mg DAILY PO Last administered on 12/17/16 08:55; Admin Dose 10 MG; Start 12/17/16 at 09:00 Zolpidem Tartrate (Ambien) 5 mg HS PRN PO INSOMNIA; Start 12/16/16 at 18:00 Escitalopram Oxalate (Lexapro) 5 mg DAILY PO Last administered on 12/17/16 08: 55; Admin Dose 5 MG; Start 12/17/16 at 09:00 Ondansetron HCl (Zofran Inj) 4 mg Q6H PRN IV NAUSEA AND/OR VOMITING; Start 12/16 at 16:30 Pantoprazole (Protonix Tab) 40 mg DAILY@06 PO Last administered on 12/17/16 06: 03; Admin Dose 40 MG; Start 12/17/16 at 06:00 Acetaminophen 650 mg 650 mg Q6H PRN PO PAIN AND OR ELEVATED TEMP Last administered on 12/16/16 20:35; Admin Dose 650 MG; Start 12/16/16 at 16:30 Levofloxacin/ Dextrose (Levaquin 500mg/ D5W 100 ml (Pmx)) 100 ml @ 100 mls/hr Q48H IVPB ; Start 12/18/16 at 14:30 Sodium Hypochlorite (Dakin'S (Dilute 1/40%)) 1 applic BID IRR Last administered on 12/17/16 08:59; Admin Dose 1 APPLIC; Start 12/17/16 at 09:00 Miscellaneous Information (*Rx Drug Level Order Reminder*) RANDOM VANCOMYCIN LEVEL ... ONCE ONCE XX ; Start 12/18/16 at 05:00; Stop 12/18/16 at 05:01 ANDREA ALVARADO December 17, 2016 09:14
[2016-12-17 10:08] LABS: ADD SCAN DIFF NO
[2016-12-17 10:21] LABS: BASOPHILS % 0.2 % (0.0-2.0); EOSINOPHILS # 0.2 10^3/ul (0.0-0.5); HEMATOCRIT 25.2 % (42.0-52.0); HEMOGLOBIN 8.3 g/dl (14.0-18.0); LYMPHOCYTES # 0.8 10^3/ul (0.8-2.9); LYMPHOCYTES % 4.3 % (15.0-51.0); MEAN CORPUSCULAR HEMOGLOBIN 29.2 pg (29.0-33.0); MEAN CORPUSCULAR HGB CONC 32.9 g/dl (32.0-37.0); MEAN CORPUSCULAR VOLUME 88.7 fl (82.0-101.0); MEAN PLATELET VOLUME 9.8 fl (7.4-10.4); MONOCYTE # 1.1 10^3/ul (0.3-0.9); MONOCYTES % 6.2 % (0.0-11.0); NEUTROPHIL # 15.2 10^3/ul (1.6-7.5); NEUTROPHILS % 86.5 % (39.0-77.0); PLATELET COUNT 452 10^3/UL (140-415); RED BLOOD COUNT 2.84 10^6/ul (4.70-6.10); RED CELL DISTRIBUTION WIDTH 17.2 % (11.5-14.5); WHITE BLOOD COUNT 17.6 10^3/ul (4.8-10.8)
[2016-12-17 10:33] LABS: MAGNESIUM 1.9 mg/dl (1.7-2.5); PHOSPHORUS 7.2 mg/dl (2.5-4.9)
[2016-12-17 10:51] LABS: ALBUMIN 2.8 g/dl (3.3-4.9); ALBUMIN/GLOBULIN RATIO 0.73; BILIRUBIN,DIRECT 0.1 mg/dl (0.00-0.20); BILIRUBIN,INDIRECT 0.1 mg/dl (0-1.1); BILIRUBIN,TOTAL 0.2 mg/dl (0.2-1.3); CALCIUM 8.6 mg/dl (8.4-10.2); CREATININE 6.03 mg/dl (0.61-1.24); POTASSIUM 4.7 mmol/L (3.5-5.1); TOTAL PROTEIN 6.6 g/dl (6.1-8.1)
[2016-12-17 11:03] LABS: THYROID STIMULATING HORMONE 4.29 MIU/L (0.465-4.680)
--- NOTE | 2016-12-17 12:07 | CONS ---
Date/Time of Note Date/Time of Note DATE: 12/17/16 TIME: 12:02 Assessment/Plan Assessment/Plan Chief Complaint/Hosp Course assessment/impression - sepsis due to infected wound of L heel - diabetic infection of L foot (heel), soft tissue damage - ESRD on HD via AVF in LUE - DM - CAD and CHF - A fib - COPD and asthma - anemia - liver cirrhosis per EMR - elevated alk phos, source can be either the biliary tract or bone recommendations - pending: results of blood and wound cultures - MRI was performed, and I will review the result - check hepatitis serologies (reported liver cirrhosis) - vascular workup - I recommend replacing levofloxacin with renally dosed meropenem, and continue IV vancomycin (ordered); will adjust his antibiotics based on the culture results management d/w Pt's RN. (Pt's too lethargic to communicate with today.) Problems: Consultation Date/Type/Reason Admit Date/Time December 16, 2016 Date of Consultation: December 17, 2016 Type of Consultation: ID Reason for Consultation sepsis Referring Provider: ANDREA ALVARADO Hx of Present Illness This is a 71 yo male SNF resident with DM, ESRD on HD, COPD/asthma, CAD, A fib. Pt was transferred to ER from his dialysis center on 12/16/2016 due to hypotension. HD could not be performed per EMR. Pt is lethargic and is unable to give me his HPI. Pt has a ulcer on L foot and has been worked up for possible osteomyelitis. Today Pt is hypotensive at times. Dr. Alvarado requested ID consultation on this Pt. Subjective hx not possible: pt non-verbal Past Medical History Medical History: congestive heart failure, coronary artery disease, diabetes, renal disease, other (A fib, COPD, anemia, liver cirrhosis) Past Surgical History Past Surgical Hx: other (reported to have had surgeries but exact procedures unknown) Social History Smoking Status: Former smoker Exam/Review of Systems Vital Signs Vitals Vital Signs Date Time Temp Pulse Resp B/P Pulse Ox O2 Delivery O2 Flow Rate FiO2 12/17/16 10:08 Nasal Cannula 2.0 12/17/16 08:07 61 12/17/16 07:56 97.8 18 92/51 100 Intake and Output 12/16/16 12/16/16 12/17/16 15:00 23:00 07:00 Intake Total 120 ml Balance 120 ml Exam Constitutional: frail, non-verbal Head: atraumatic, normocephalic Eyes: nl conjunctiva, nl lids ENMT: nl external ears & nose, nl nasal mucosa & septum Neck: other (Pt did not follow commands) Respiratory: diminished breath sounds Cardiovascular: nl pulses, regular rate and rhythm Gastrointestinal: non-tender, soft Musculoskeletal: No swelling Extremities: other (AVF on LUE), No edema Neurological: confused, lethargic Skin: rash or lesions (soft tissue ulcer of L heel) Results Result Diagram: 12/17/1646 12/17/1646 Results 24 hrs Laboratory Tests Test 12/17/16 09:46 White Blood Count 17.6 H Red Blood Count 2.84 L Hemoglobin 8.3 L Hematocrit 25.2 L Mean Corpuscular Volume 88.7 Mean Corpuscular Hemoglobin 29.2 Mean Corpuscular Hemoglobin Concent 32.9 Red Cell Distribution Width 17.2 H Platelet Count 452 H Mean Platelet Volume 9.8 Neutrophils % 86.5 H Lymphocytes % 4.3 L Monocytes % 6.2 Eosinophils % 1.0 Basophils % 0.2 Nucleated Red Blood Cells % 0.0 Neutrophils # 15.2 H Lymphocytes # 0.8 Monocytes # 1.1 H Eosinophils # 0.2 Basophils # 0.0 Nucleated Red Blood Cells # 0.0 Sodium Level 132 L Potassium Level 4.7 Chloride Level 90 L Carbon Dioxide Level 29 Anion Gap 18 H Blood Urea Nitrogen 55 H Creatinine 6.03 H Glucose Level 145 Calcium Level 8.6 Phosphorus Level 7.2 H Magnesium Level 1.9 Total Bilirubin 0.2 Direct Bilirubin 0.10 # Indirect Bilirubin 0.1 Aspartate Amino Transf (AST/SGOT) 17 Alanine Aminotransferase (ALT/SGPT) 23 Alkaline Phosphatase 207 H Total Protein 6.6 Albumin 2.8 L Globulin 3.80 H Albumin/Globulin Ratio 0.73 Thyroid Stimulating Hormone (TSH) 4.290 Medications Medications Current Medications Amiodarone HCl (Cordarone) 200 mg DAILY PO ; Start 12/17/16 at 09:00 Apixaban (Eliquis) 5 mg BID PO Last administered on 12/17/16 08:56; Admin Dose 5 MG; Start 12/16/16 at 21:00 Aspirin (Halfprin) 81 mg DAILY PO Last administered on 12/17/16 08:56; Admin Dose 81 MG; Start 12/17/16 at 09:00 Atorvastatin Calcium (Lipitor) 20 mg QHS PO Last administered on 12/16/16 20:35 ; Admin Dose 20 MG; Start 12/16/16 at 21:00 Lactulose (Enulose) 20 gm HS PO Last administered on 12/16/16 20:36; Admin Dose 20 GM; Start 12/16/16 at 21:00 Lisinopril (Zestril) 20 mg DAILY PO ; Start 12/17/16 at 09:00 Loratadine (Claritin) 10 mg DAILY PO Last administered on 12/17/16 08:55; Admin Dose 10 MG; Start 12/17/16 at 09:00 Zolpidem Tartrate (Ambien) 5 mg HS PRN PO INSOMNIA; Start 12/16/16 at 18:00 Escitalopram Oxalate (Lexapro) 5 mg DAILY PO Last administered on 12/17/16 08: 55; Admin Dose 5 MG; Start 12/17/16 at 09:00 Ondansetron HCl (Zofran Inj) 4 mg Q6H PRN IV NAUSEA AND/OR VOMITING; Start 12/16 at 16:30 Pantoprazole (Protonix Tab) 40 mg DAILY@06 PO Last administered on 12/17/16 06: 03; Admin Dose 40 MG; Start 12/17/16 at 06:00 Acetaminophen 650 mg 650 mg Q6H PRN PO PAIN AND OR ELEVATED TEMP Last administered on 12/16/16 20:35; Admin Dose 650 MG; Start 12/16/16 at 16:30 Levofloxacin/ Dextrose (Levaquin 500mg/ D5W 100 ml (Pmx)) 100 ml @ 100 mls/hr Q48H IVPB ; Start 12/18/16 at 14:30 Sodium Hypochlorite (Dakin'S (Dilute 1/40%)) 1 applic BID IRR Last administered on 12/17/16 08:59; Admin Dose 1 APPLIC; Start 12/17/16 at 09:00 Miscellaneous Information (*Rx Drug Level Order Reminder*) RANDOM VANCOMYCIN LEVEL ... ONCE ONCE XX ; Start 12/18/16 at 05:00; Stop 12/18/16 at 05:01 ROJELIO VENTURA M.D. December 17, 2016 12:07
[2016-12-17] MEDS: MEROPENEM 500 MG/100 ML (PMX) 100 ML IVPB SCH (13:16)
[2016-12-17 14:56] LABS: HAAIG REFLEX REFLEX FILED
--- NOTE | 2016-12-17 15:40 | RADRPT ---
PROCEDURE: MRI OF THE LEFT ANKLE CLINICAL INDICATION: Left foot ulcer, pain and swelling, concern for osteomyelitis TECHNIQUE: Multiple MRI images were obtained utilizing multiple sequences in multiple planes utiliz ing multiple pulse sequences. Images were interpreted on a high-resolution PACS system. COMPARISON: Radiographs of the left foot dated December 16, 2016 MRI of the left foot dated December 16, 2016 FINDINGS: Tendons: The Achilles tendon demonstrates moderate tendinosis without evidence of tear. The medial flexor tendons are intact. There is degeneration and flattening of the peroneus brevis tendon at th e fibular tip. The anterior extensor tendons are intact. Osseous structures: There is a large lateral skin ulceration along the posterior aspect of the ankle bordering the Achilles tendon and calcaneus (axial 17 and coronal 14), extending to bone. The unde rlying calcaneus demonstrates mild marrow edema within the decreased T1 signal (coronal 13), which c ould reflect early osteomyelitis though no luis enrique osseous erosive changes are present. There is no evidence of acute fracture. Talar dome is normal. There is no coalition. Ligaments: The syndesmotic, low lateral, and deep/superficial deltoid ligaments appear intact noting some bone proliferation at the medial malleolus likely from a remote deep deltoid ligament sprain. Plantar fascia: There is mild thickening of the central cord of the plantar fascia. There is no khoa dence of fascial tear. Other findings: There is soft tissue swelling surrounding the Achilles tendon adjacent to the ulcer ation throughout Hoffa's fat pad (sagittal 14). The sinus tarsi is normal. The tarsal tunnel is no rmal. IMPRESSION: 1. Large lateral ulceration extending to bone along the posterior calcaneal tuberosity bordering the lateral margin of the distal Achilles tendon. The periphery of the underlying calcaneus demonstrat es mild abnormal marrow signal suspicious for early osteomyelitis in this setting though no luis enrique co rtical erosive changes are present at this time. 2. Diffuse subcutaneous soft tissue swelling adjacent to the skin ulceration and surrounding the Ach illes tendon suggestive of cellulitis. No drainable fluid collection. 3. Degeneration and flattening of the peroneus brevis tendon at the fibular tip and moderate distal Achilles tendinosis with posterior calcaneal enthesopathy. 4. No acute fracture or acute ligamentous abnormality. 5. Please see separately dictated MRI of the left foot for further evaluation. RPTAT: UU .Ruben Bishop MD, MD Date Time Electronically viewed and signed by .Ruben Bishop MD, MD on 12/17/2016 15:40 .K/
--- NOTE | 2016-12-17 15:43 | RADRPT ---
PROCEDURE: MRI OF THE LEFT FOOT CLINICAL INDICATION: Left foot pain and swelling, concern for osteomyelitis TECHNIQUE: Multiple MRI images were obtained utilizing multiple sequences in multiple planes. Image s were interpreted on a high-resolution PACS system. COMPARISON: Radiographs of the left foot December 16, 2016 and MRI of the left ankle December 16, 2016 FINDINGS: There is no stress or traumatic fracture. Bone marrow signal is normal. No luis enrique cortical erosive changes are seen to suggest osteomyelitis of the mid foot for forefoot. There are moderate degenerative changes at the first metatarsophalangeal joint with chondral fissuri ng and marginal osteophyte formation. The remaining visualized joint spaces are preserved. There is no flexor or extensor tendon tear. There is mild intrinsic foot muscle atrophy and edema. The sesamoids appear grossly unremarkable. The plantar plates are intact. There is no definite in terdigital neuroma. There is no significant intermetatarsal bursal fluid. There is a small amount o f susceptibility artifact near the third and fourth metatarsal heads, correlate clinically for forei gn body. IMPRESSION: 1. No stress/traumatic fracture or evidence of osteomyelitis. 2. Nonspecific intrinsic foot muscle atrophy and edema, query diabetic microangiopathy. No drainabl e fluid collection. 3. Moderate osteoarthrosis at the first metatarsophalangeal joint. 4. Small focus of susceptibility artifact near the third and fourth metatarsal heads, coracoid clin ically for foreign body. 5. Please see separately dictated MRI of the left ankle for further assessment. RPTAT: UU .Ruben Bishop MD, Date Time Electronically viewed and signed by .Ruben Bishop MD, on 12/17/2016 15:43 .K/
--- NOTE | 2016-12-17 16:02 | CONS ---
Date/Time of Note Date/Time of Note DATE: 12/17/16 TIME: 15:57 Assessment/Plan Assessment/Plan Problems: (1) PAD (peripheral artery disease) (2) Critical lower limb ischemia (3) Leukocytosis Status: Acute Qualifiers: Qualified Code: D72.829 - Leukocytosis, unspecified type (4) Hypotension Status: Acute Qualifiers: Qualified Code: I95.9 - Hypotension, unspecified hypotension type (5) Chronic atrial fibrillation Status: Acute (6) End stage renal disease on dialysis Status: Acute (7) Volume overload Status: Acute Qualifiers: Qualified Code: E87.70 - Hypervolemia, unspecified hypervolemia type (8) Non healing left heel wound Status: Acute Additional Assessment/Plan Non healing ucler failed graft ID on case abx Pt will need lower extremity angigroam which i will arrange US of lower ext will be ordered. Pt may need PICC line will ask picc line nurse to place as may need office services manager abx will .fu thank you Dr Dobson for consultation. Consultation Date/Type/Reason Admit Date/Time December 16, 2016 Date of Consultation: December 17, 2016 Type of Consultation: Endovas and Card inter Reason for Consultation PAD, Foot ulcer, Vascular angiogram Hx of Present Illness Patient is 71 year old Male with PMH of HTn, HlD< CAD , ESRD on HD who came in from HD to here due to low BP. pt has nonhealing foot ulcer in lateral aspect of left heel likely PT/Peroneal territory with failed skin graft. I was consulted for possible PAD revascularization with possible pedal loop revasculariztion in the setting of non healing wound. Constitutional: no complaints Past Medical History Medical History: congestive heart failure, coronary artery disease, diabetes, renal disease, other (A fib, COPD, anemia, liver cirrhosis) Past Surgical History Past Surgical Hx: other (reported to have had surgeries but exact procedures unknown) Social History Smoking Status: Former smoker Exam/Review of Systems Vital Signs Vitals Vital Signs Date Time Temp Pulse Resp B/P Pulse Ox O2 Delivery O2 Flow Rate FiO2 12/17/16 12:06 69 12/17/16 11:59 97.4 18 105/56 100 12/17/16 10:08 Nasal Cannula 2.0 Intake and Output 12/16/16 12/16/16 12/17/16 15:00 23:00 07:00 Intake Total 120 ml Balance 120 ml Exam Constitutional: alert, oriented Psych: no complaints Head: normocephalic Eyes: nl conjunctiva ENMT: nl external ears & nose Neck: supple Respiratory: clear to auscultation Cardiovascular: regular rate and rhythm Results Result Diagram: 12/17/16 0946 12/17/16 0946 Results 24 hrs Laboratory Tests Test 12/17/16 09:46 12/17/16 14:28 White Blood Count 17.6 H Red Blood Count 2.84 L Hemoglobin 8.3 L Hematocrit 25.2 L Mean Corpuscular Volume 88.7 Mean Corpuscular Hemoglobin 29.2 Mean Corpuscular Hemoglobin Concent 32.9 Red Cell Distribution Width 17.2 H Platelet Count 452 H Mean Platelet Volume 9.8 Neutrophils % 86.5 H Lymphocytes % 4.3 L Monocytes % 6.2 Eosinophils % 1.0 Basophils % 0.2 Nucleated Red Blood Cells % 0.0 Neutrophils # 15.2 H Lymphocytes # 0.8 Monocytes # 1.1 H Eosinophils # 0.2 Basophils # 0.0 Nucleated Red Blood Cells # 0.0 Sodium Level 132 L Potassium Level 4.7 Chloride Level 90 L Carbon Dioxide Level 29 Anion Gap 18 H Blood Urea Nitrogen 55 H Creatinine 6.03 H Glucose Level 145 Calcium Level 8.6 Phosphorus Level 7.2 H Magnesium Level 1.9 Total Bilirubin 0.2 Direct Bilirubin 0.10 # Indirect Bilirubin 0.1 Aspartate Amino Transf (AST/SGOT) 17 Alanine Aminotransferase (ALT/SGPT) 23 Alkaline Phosphatase 207 H Total Protein 6.6 Albumin 2.8 L Globulin 3.80 H Albumin/Globulin Ratio 0.73 Thyroid Stimulating Hormone (TSH) 4.290 Hepatitis B Surface Antigen Pending Hepatitis B Core Total Antibody Pending Hepatitis C Antibody Pending Medications Medications Current Medications Amiodarone HCl (Cordarone) 200 mg DAILY PO ; Start 12/17/16 at 09:00 Apixaban (Eliquis) 5 mg BID PO Last administered on 12/17/16 08:56; Admin Dose 5 MG; Start 12/16/16 at 21:00 Aspirin (Halfprin) 81 mg DAILY PO Last administered on 12/17/16 08:56; Admin Dose 81 MG; Start 12/17/16 at 09:00 Atorvastatin Calcium (Lipitor) 20 mg QHS PO Last administered on 12/16/16 20:35 ; Admin Dose 20 MG; Start 12/16/16 at 21:00 Lactulose (Enulose) 20 gm HS PO Last administered on 12/16/16 20:36; Admin Dose 20 GM; Start 12/16/16 at 21:00 Lisinopril (Zestril) 20 mg DAILY PO ; Start 12/17/16 at 09:00 Loratadine (Claritin) 10 mg DAILY PO Last administered on 12/17/16 08:55; Admin Dose 10 MG; Start 12/17/16 at 09:00 Zolpidem Tartrate (Ambien) 5 mg HS PRN PO INSOMNIA; Start 12/16/16 at 18:00 Escitalopram Oxalate (Lexapro) 5 mg DAILY PO Last administered on 12/17/16 08: 55; Admin Dose 5 MG; Start 12/17/16 at 09:00 Ondansetron HCl (Zofran Inj) 4 mg Q6H PRN IV NAUSEA AND/OR VOMITING; Start 12/16 at 16:30 Pantoprazole (Protonix Tab) 40 mg DAILY@06 PO Last administered on 12/17/16 06: 03; Admin Dose 40 MG; Start 12/17/16 at 06:00 Acetaminophen (Tylenol Tab) 650 mg Q6H PRN PO PAIN AND OR ELEVATED TEMP Last administered on 12/16/16 20:35; Admin Dose 650 MG; Start 12/16/16 at 16:30 Sodium Hypochlorite (Dakin'S (Dilute 1/40%)) 1 applic BID IRR Last administered on 12/17/16 08:59; Admin Dose 1 APPLIC; Start 12/17/16 at 09:00 Miscellaneous Information RANDOM VANCOMYCIN LEVEL ... ONCE ONCE XX ; Start 12/18 at 05:00; Stop 12/18/16 at 05:01 Meropenem (Merrem 500 Mg/ 100 ml (Pmx)) 100 ml @ 200 mls/hr DAILY IVPB Last administered on 12/17/16 13:16; Admin Dose 200 MLS/HR; Start 12/17/16 at 12:30 STEFANIA VAUGHN MD December 17, 2016 16:02
[2016-12-17 16:22] LABS: HEPATITIS B CORE ANTIBODY REACTIVE (NEGATIVE)
--- NOTE | 2016-12-17 17:38 | CONS ---
Date/Time of Note Date/Time of Note DATE: 12/17/16 TIME: 17:37 Assessment/Plan Assessment/Plan Chief Complaint/Hosp Course IMPRESSION: 1. Patient has possible systemic inflammatory response syndrome. 2. Leukocytosis, possible sepsis. 3. End-stage renal disease. 4. Hypertension. 5. Chronic obstructive pulmonary disease. 6. Atrial fibrillation. 7. Anemia. 8. Elevated BNP. 9 foot wound plan labs am Problems: Consultation Date/Type/Reason Admit Date/Time December 16, 2016 at 12:07 Type of Consultation: renal Referring Provider: ANDREA ALVARADO 24 HR Interval Summary Constitutional: other (weakness no sob) Exam/Review of Systems Vital Signs Vitals Vital Signs Date Time Temp Pulse Resp B/P Pulse Ox O2 Delivery O2 Flow Rate FiO2 12/17/16 17:16 63 12/17/16 16:09 97.6 16 93/53 92 12/17/16 10:08 Nasal Cannula 2.0 Intake and Output 12/16/16 12/16/16 12/17/16 15:00 23:00 07:00 Intake Total 120 ml Balance 120 ml Exam Neck: supple Respiratory: diminished breath sounds Cardiovascular: regular rate and rhythm Gastrointestinal: bowel sounds, soft Musculoskeletal: other (foot wound+) Results Result Diagram: 12/17/16 0946 12/17/16 0946 Results 24 hrs Laboratory Tests Test 12/17/16 09:46 12/17/16 14:28 White Blood Count 17.6 H Red Blood Count 2.84 L Hemoglobin 8.3 L Hematocrit 25.2 L Mean Corpuscular Volume 88.7 Mean Corpuscular Hemoglobin 29.2 Mean Corpuscular Hemoglobin Concent 32.9 Red Cell Distribution Width 17.2 H Platelet Count 452 H Mean Platelet Volume 9.8 Neutrophils % 86.5 H Lymphocytes % 4.3 L Monocytes % 6.2 Eosinophils % 1.0 Basophils % 0.2 Nucleated Red Blood Cells % 0.0 Neutrophils # 15.2 H Lymphocytes # 0.8 Monocytes # 1.1 H Eosinophils # 0.2 Basophils # 0.0 Nucleated Red Blood Cells # 0.0 Sodium Level 132 L Potassium Level 4.7 Chloride Level 90 L Carbon Dioxide Level 29 Anion Gap 18 H Blood Urea Nitrogen 55 H Creatinine 6.03 H Glucose Level 145 Calcium Level 8.6 Phosphorus Level 7.2 H Magnesium Level 1.9 Total Bilirubin 0.2 Direct Bilirubin 0.10 # Indirect Bilirubin 0.1 Aspartate Amino Transf (AST/SGOT) 17 Alanine Aminotransferase (ALT/SGPT) 23 Alkaline Phosphatase 207 H Total Protein 6.6 Albumin 2.8 L Globulin 3.80 H Albumin/Globulin Ratio 0.73 Thyroid Stimulating Hormone (TSH) 4.290 Hepatitis B Surface Antigen NEGATIVE Hepatitis B Core Total Antibody REACTIVE H Hepatitis C Antibody NEGATIVE Medications Medications Current Medications Amiodarone HCl (Cordarone) 200 mg DAILY PO ; Start 12/17/16 at 09:00 Apixaban (Eliquis) 5 mg BID PO Last administered on 12/17/16 08:56; Admin Dose 5 MG; Start 12/16/16 at 21:00 Aspirin (Halfprin) 81 mg DAILY PO Last administered on 12/17/16 08:56; Admin Dose 81 MG; Start 12/17/16 at 09:00 Atorvastatin Calcium (Lipitor) 20 mg QHS PO Last administered on 12/16/16 20:35 ; Admin Dose 20 MG; Start 12/16/16 at 21:00 Lactulose (Enulose) 20 gm HS PO Last administered on 12/16/16 20:36; Admin Dose 20 GM; Start 12/16/16 at 21:00 Lisinopril (Zestril) 20 mg DAILY PO ; Start 12/17/16 at 09:00 Loratadine (Claritin) 10 mg DAILY PO Last administered on 12/17/16 08:55; Admin Dose 10 MG; Start 12/17/16 at 09:00 Zolpidem Tartrate (Ambien) 5 mg HS PRN PO INSOMNIA; Start 12/16/16 at 18:00 Escitalopram Oxalate (Lexapro) 5 mg DAILY PO Last administered on 12/17/16 08: 55; Admin Dose 5 MG; Start 12/17/16 at 09:00 Ondansetron HCl (Zofran Inj) 4 mg Q6H PRN IV NAUSEA AND/OR VOMITING; Start 12/16 at 16:30 Pantoprazole (Protonix Tab) 40 mg DAILY@06 PO Last administered on 12/17/16 06: 03; Admin Dose 40 MG; Start 12/17/16 at 06:00 Acetaminophen (Tylenol Tab) 650 mg Q6H PRN PO PAIN AND OR ELEVATED TEMP Last administered on 12/16/16 20:35; Admin Dose 650 MG; Start 12/16/16 at 16:30 Sodium Hypochlorite (Dakin'S (Dilute 1/40%)) 1 applic BID IRR Last administered on 12/17/16 08:59; Admin Dose 1 APPLIC; Start 12/17/16 at 09:00 Miscellaneous Information RANDOM VANCOMYCIN LEVEL ... ONCE ONCE XX ; Start 12/18 at 05:00; Stop 12/18/16 at 05:01 Meropenem (Merrem 500 Mg/ 100 ml (Pmx)) 100 ml @ 200 mls/hr DAILY IVPB Last administered on 12/17/16 13:16; Admin Dose 200 MLS/HR; Start 12/17/16 at 12:30 MAGUI PINEDA MD December 17, 2016 17:38
[2016-12-17] MEDS: ACETAMINOPHEN 325 MG TAB PO PRN ×2 (18:30→20:11)
[2016-12-17] MEDS: LACTULOSE 30ML CUP PO SCH (20:11)
[2016-12-17] MEDS: ATORVASTATIN 20 MG TAB PO SCH (20:11)
--- NOTE | 2016-12-17 20:30 | RADRPT ---
PROCEDURE: US bilateral lower extremity arteries. CLINICAL INDICATION: Bilateral leg pain. Claudication that interferes significantly with the silvina ent's lifestyle. TECHNIQUE: Multiple longitudinal and transverse images of the bilateral lower extremity arteries w ere obtained with medley scale, pulsed Doppler, and color Doppler imaging. COMPARISON: No prior studies are available for comparison. FINDINGS: Right PSYCHOLOGICAL OPERATIONS:120 cm/sec PSFA:59 cm/sec MSFA:64 cm/sec DSFA:50 cm/sec POP:67 cm/sec DIVERSIFIED CROPS II FARMWORKER:18 cm/sec DPA:23 cm/sec Left PSYCHOLOGICAL OPERATIONS:78 cm/sec PSFA:87 cm/sec MSFA:69 cm/sec DSFA:44 cm/sec POP:66 cm/sec DIVERSIFIED CROPS II FARMWORKER:87 cm/sec DPA:15 cm/sec The ankle-brachial indices were unobtainable due to calcified vessels. There is normal triphasic fl ow throughout the femoral and popliteal systems bilaterally. Biphasic flow is present in the calf a rteries. There is mild plaque throughout bilaterally with no significant stenosis. IMPRESSION: 1. Mild plaque formation without evidence for hemodynamically significant stenosis or occlusion. RPTAT: QQ .Kalpesh Hollingsworth MD, MD Date Time Electronically viewed and signed by .Kalpesh Hollingsworth MD, on 12/17/2016 20:29 .R/
[2016-12-18] VITALS (10 sets, daily range): BP systolic 108–128; BP diastolic 57–71; PULSE 60–65; RESP 15–18
[2016-12-18] MEDS: PANTOPRAZOLE (EC) 40 MG TAB PO SCH (05:09)
[2016-12-18] MEDS: ACETAMINOPHEN 325 MG TAB PO PRN ×2 (05:09→15:22)
[2016-12-18 05:50] LABS: ADD SCAN DIFF NO
[2016-12-18 05:59] LABS: BASOPHILS % 0.3 % (0.0-2.0); EOSINOPHILS # 0.2 10^3/ul (0.0-0.5); EOSINOPHILS % 1.5 % (0.0-7.0); HEMATOCRIT 23.7 % (42.0-52.0); LYMPHOCYTES # 0.8 10^3/ul (0.8-2.9); LYMPHOCYTES % 5.2 % (15.0-51.0); MEAN CORPUSCULAR HEMOGLOBIN 29.9 pg (29.0-33.0); MEAN CORPUSCULAR HGB CONC 33.8 g/dl (32.0-37.0); MEAN CORPUSCULAR VOLUME 88.4 fl (82.0-101.0); MEAN PLATELET VOLUME 9.7 fl (7.4-10.4); MONOCYTE # 1.1 10^3/ul (0.3-0.9); MONOCYTES % 7.4 % (0.0-11.0); NEUTROPHIL # 12.6 10^3/ul (1.6-7.5); NEUTROPHILS % 84.2 % (39.0-77.0); PLATELET COUNT 449 10^3/UL (140-415); RED BLOOD COUNT 2.68 10^6/ul (4.70-6.10); RED CELL DISTRIBUTION WIDTH 17.7 % (11.5-14.5); WHITE BLOOD COUNT 14.9 10^3/ul (4.8-10.8)
[2016-12-18 06:20] LABS: ALBUMIN 2.8 g/dl (3.3-4.9); ALBUMIN/GLOBULIN RATIO 0.71; BILIRUBIN,INDIRECT 0.2 mg/dl (0-1.1); BILIRUBIN,TOTAL 0.2 mg/dl (0.2-1.3); CALCIUM 8.5 mg/dl (8.4-10.2); CREATININE 4.81 mg/dl (0.61-1.24); POTASSIUM 4.6 mmol/L (3.5-5.1); TOTAL PROTEIN 6.7 g/dl (6.1-8.1)
[2016-12-18] MEDS: LEVOTHYROXINE 100 MCG TAB PO SCH (06:20)
[2016-12-18] MEDS: ASPIRIN (EC) 81 MG TAB PO SCH (08:25)
[2016-12-18] MEDS: LORATADINE 10 MG TAB PO SCH (08:25)
[2016-12-18] MEDS: APIXABAN 5 MG TABLET PO SCH ×2 (08:25→20:14)
[2016-12-18] MEDS: ESCITALOPRAM 10 MG TAB PO SCH (08:25)
[2016-12-18] MEDS: CALCIUM ACETATE 667 MG CAP PO SCH ×3 (08:25→17:46)
[2016-12-18] MEDS: AMIODARONE 200 MG TAB PO SCH (08:25)
[2016-12-18] MEDS: LISINOPRIL 20 MG TAB PO SCH (08:25)
[2016-12-18] MEDS: MEROPENEM 500 MG/100 ML (PMX) 100 ML IVPB SCH (08:30)
[2016-12-18] MEDS: SODIUM HYPOCHLORITE 1/40% 1L IRRIG IRR SCH ×2 (10:37→20:16)
--- NOTE | 2016-12-18 12:51 | CONS ---
Date/Time of Note Date/Time of Note DATE: 12/18/16 TIME: 12:50 Assessment/Plan Assessment/Plan Chief Complaint/Hosp Course - sepsis due to infected wound of L heel - diabetic infection of L foot (heel), soft tissue damage - ESRD on HD via AVF in LUE - DM - CAD and CHF - A fib - COPD and asthma - anemia - liver cirrhosis per EMR - elevated alk phos, source can be either the biliary tract or bone recommendations - cont.levofloxacin with renally dosed meropenem, and continue IV vancomycin ( ordered); will adjust his antibiotics based on the culture results - will likely need 6 weeks of abx based on most recent imaging results Problems: Consultation Date/Type/Reason Admit Date/Time December 16, 2016 at 12:07 Initial Consult Date 12/17/16 Type of Consultation: id Referring Provider: ANDREA ALVARADO Exam/Review of Systems Vital Signs Vitals Vital Signs Date Time Temp Pulse Resp B/P Pulse Ox O2 Delivery O2 Flow Rate FiO2 12/18/16 12:15 62 12/18/16 11:58 97.2 18 113/59 98 12/18/16 04:00 Nasal Cannula 2.0 Intake and Output 12/17/16 12/17/16 12/18/16 15:00 23:00 07:00 Intake Total 100 ml 880 ml Output Total 2000 ml Balance 100 ml -1120 ml Exam Constitutional: alert, oriented, well developed Psych: nl mood/affect, no complaints Head: atraumatic, normocephalic Eyes: EOMI, PERRL, nl conjunctiva, nl lids, nl sclera ENMT: nl external ears & nose, nl lips & teeth, nl nasal mucosa & septum Respiratory: clear to auscultation, normal air movement Cardiovascular: nl pulses, regular rate and rhythm Gastrointestinal: nl liver, spleen, non-tender, soft Results Result Diagram: 12/18/16 0532 12/18/16 0532 Results 24 hrs Laboratory Tests Test 12/17/16 14:28 12/18/16 05:32 Hepatitis B Surface Antigen NEGATIVE Hepatitis B Core Total Antibody REACTIVE H Hepatitis C Antibody NEGATIVE White Blood Count 14.9 H Red Blood Count 2.68 L Hemoglobin 8.0 L Hematocrit 23.7 L Mean Corpuscular Volume 88.4 Mean Corpuscular Hemoglobin 29.9 Mean Corpuscular Hemoglobin Concent 33.8 Red Cell Distribution Width 17.7 H Platelet Count 449 H Mean Platelet Volume 9.7 Neutrophils % 84.2 H Lymphocytes % 5.2 L Monocytes % 7.4 Eosinophils % 1.5 Basophils % 0.3 Nucleated Red Blood Cells % 0.0 Neutrophils # 12.6 H Lymphocytes # 0.8 Monocytes # 1.1 H Eosinophils # 0.2 Basophils # 0.0 Nucleated Red Blood Cells # 0.0 Erythrocyte Sedimentation Rate 96 H Sodium Level 138 Potassium Level 4.6 Chloride Level 98 Carbon Dioxide Level 31 Anion Gap 14 Blood Urea Nitrogen 36 #H Creatinine 4.81 #H Glucose Level 115 Calcium Level 8.5 Total Bilirubin 0.2 Direct Bilirubin 0.00 Indirect Bilirubin 0.2 Aspartate Amino Transf (AST/SGOT) 16 Alanine Aminotransferase (ALT/SGPT) 25 Alkaline Phosphatase 203 H Total Protein 6.7 Albumin 2.8 L Globulin 3.90 H Albumin/Globulin Ratio 0.71 Random Vancomycin Level 15.4 Medications Medications Current Medications Amiodarone HCl (Cordarone) 200 mg DAILY PO Last administered on 12/18/16 08:25 ; Admin Dose 200 MG; Start 12/17/16 at 09:00 Apixaban (Eliquis) 5 mg BID PO Last administered on 12/18/16 08:25; Admin Dose 5 MG; Start 12/16/16 at 21:00 Aspirin (Halfprin) 81 mg DAILY PO Last administered on 12/18/16 08:25; Admin Dose 81 MG; Start 12/17/16 at 09:00 Atorvastatin Calcium (Lipitor) 20 mg QHS PO Last administered on 12/17/16 20:11 ; Admin Dose 20 MG; Start 12/16/16 at 21:00 Lactulose (Enulose) 20 gm HS PO Last administered on 12/17/16 20:11; Admin Dose 20 GM; Start 12/16/16 at 21:00 Lisinopril (Zestril) 20 mg DAILY PO Last administered on 12/18/16 08:25; Admin Dose 20 MG; Start 12/17/16 at 09:00 Loratadine (Claritin) 10 mg DAILY PO Last administered on 12/18/16 08:25; Admin Dose 10 MG; Start 12/17/16 at 09:00 Zolpidem Tartrate (Ambien) 5 mg HS PRN PO INSOMNIA; Start 12/16/16 at 18:00 Escitalopram Oxalate (Lexapro) 5 mg DAILY PO Last administered on 12/18/16 08: 25; Admin Dose 5 MG; Start 12/17/16 at 09:00 Ondansetron HCl (Zofran Inj) 4 mg Q6H PRN IV NAUSEA AND/OR VOMITING; Start 12/16 at 16:30 Pantoprazole (Protonix Tab) 40 mg DAILY@06 PO Last administered on 12/18/16 05: 09; Admin Dose 40 MG; Start 12/17/16 at 06:00 Acetaminophen (Tylenol Tab) 650 mg Q6H PRN PO PAIN AND OR ELEVATED TEMP Last administered on 12/18/16 05:09; Admin Dose 650 MG; Start 12/16/16 at 16:30 Sodium Hypochlorite 1 applic 1 applic BID IRR Last administered on 12/18/16 10: 37; Admin Dose 1 APPLIC; Start 12/17/16 at 09:00 Meropenem 100 ml @ 200 mls/hr DAILY IVPB Last administered on 12/18/16 08:30; Admin Dose 200 MLS/HR; Start 12/17/16 at 12:30 Vancomycin HCl/ Sodium Chloride (Vancocin/NS) 150 ml @ 75 mls/hr 13 IVPB Last administered on 12/18/16 12:28; Admin Dose 75 MLS/HR; Start 12/18/16 at 13:00; Stop 12/18/16 at 23:59 MADELINE JOHANSEN MD December 18, 2016 12:51
[2016-12-18] MEDS ORDERED: VANCOMYCIN 750 MG in SOD CHLORIDE 0.9% 150 ML IVPB SCH (13:00)
--- NOTE | 2016-12-18 14:24 | OPR ---
DATE OF OPERATION: 12/18/2016 SURGEON: Daryn Sandoval DPM FACER OPERATOR: None. PREOPERATIVE DIAGNOSES: 1. Left lateral foot ulceration with extensive tissue loss. 2. End-stage renal disease on hemodialysis. 3. Atrial fibrillation. 4. Hypertension. 5. COPD, hypothyroidism. POSTOPERATIVE DIAGNOSES: 1. Left lateral foot ulceration with extensive soft tissue loss. 2. End-stage renal disease on hemodialysis. 3. Atrial fibrillation 3. Hypertension. 4. COPD, hypothyroidism. OPERATION PERFORMED: Excisional debridement, skin, subcutaneous tissue, ligament, tendon and bone c alcaneus and fibula 6 x 10 cm. PATHOLOGY: None. ANESTHESIA: None. ESTIMATED BLOOD LOSS: 20 mL. COMPLICATIONS: None. INDICATION FOR PROCEDURE: Ulceration left lateral foot with extensive tissue loss necrotic tissue, subcutaneous tissue with bone exposure with desiccation of cortexes. Lateral calcaneus procedure re commended to reduce bacterial bioburden. Discussed in Occitan with the patient and consent obtained from daughter witnessed by a nurse, patient had noninvasive arterial studies which revealed mild pl aque formation without evidence of hemodynamically significant stenosis or occlusion. DESCRIPTION OF PROCEDURE: Patient seen at bedside. Wound was cleansed with Dakin's and using a pic kup and 15 blade, excisional debridement performed, necrotic skin, subcutaneous tissue, ligament and bone debrided, bone and necrosis involving the lateral cortex of calcaneus and fibula. The patient had estimated blood loss of 20 mL and wound was irrigated diluted with Dakin's irrigation and hemos tasis was achieved with compression and applied wet to dry dressings with Dakin's Kerlix. The patie nt tolerated procedure well. POSTOPERATIVE PLAN: Await culture results, likely to require staged debridement. Appreciate recomm endations from ID. Left lower extremity angiography pending. Dictated By: DARYN SANDOVAL DPM RB/BAKARI Conf#: [id number] DID#: [id number]
[2016-12-18] MEDS ORDERED: LEVOFLOXACIN 500MG/D5W (PMX) 100 ML IVPB SCH (14:30)
--- NOTE | 2016-12-18 16:05 | RADRPT ---
Echocardiogram Report Patient Name: ROXANE DOTY Gender: Male Date: 1945 Study Date: 17-Dec-2016 Palliative Care Coordinator: [facility] Location: 502 Ref. Physician: ANDREA ALVARADO Quality: Adequate Procedures: Transthoracic echocardiogram with complete 2D, M-Mode, and doppler examination. Indications: FLUID OVERLOAD. 2D/M Mode Doppler Measurement Value Normal Ranges Measurement Value Normal Ranges AoR Diam MM 1.3 cm AV Peak Cole 1.4 m/sec LA/Ao MM 3.6 AV Peak PG 7.8 mmHg LA Dimen MM 4.5 cm LVOT Peak Cole 0.8 m/sec LVIDd 2D 3.8 3.5 - 5.6 cm LVOT Peak PG 2.5 mmHg LVIDs 2D 2.4 2.1 - 4.1 cm TR Peak Cole 2.2 m/sec LVPWd 2D 1.3 0.6 - 1.1 cm TR Peak PG 18.7 mmHg IVSd 2D 1.3 0.6 - 1.1 cm AoR Diam 2D 2.8 2.0 - 3.7 cm EDV 2D 61.9 cm3 ESV 2D 13.2 cm3 LA Dimen 2D 4.5 2.3 - 4.0 cm Findings Left Ventricle: Normal left ventricular systolic function. Normal left ventricular cavity size. Mild concentric left ventricular hypertrophy. Ejection fraction is visually estimated at 60 %. Abnormal Diastolic Function. Right Ventricle: Normal right ventricular size. Normal right ventricular systolic function. Left Atrium: There is mild enlargement of left atrium. LA Dimension4.50 cm. Right Atrium: Right atrium at upper limits of normal. Mitral Valve: Mild mitral leaflet calcification. Mild mitral annular calcification. Trace mitral regurgitation. Aortic Valve: No hemodynamically significant aortic stenosis by doppler. Aortic cusps appear mildly calcified. Trace aortic valve regurgitation. Tricuspid Valve: Normal appearance of the tricuspid valve. Estimated peak PA systolic pressure 21 mmHg. There is mild tricuspid regurgitation. Pulmonic Valve: There is trace pulmonic regurgitation. Pericardium: Normal pericardium with no significant pericardial effusion. Left pleural effusion seen. Aorta: Normal aortic root. IVC: Normal size and normal respiratory collapse consistent with normal right atrial pressure. Conclusions 1.Normal left ventricular systolic function. Normal left ventricular cavity size. Mild concentric left ventricular hypertrophy. Ejection fraction is visually estimated at 60 %. Abnormal Diastolic Function. 2.Normal right ventricular size. Normal right ventricular systolic function. 3.There is mild enlargement of left atrium. 4.Right atrium at upper limits of normal. 5.Estimated peak PA systolic pressure 21 mmHg. There is mild tricuspid regurgitation. 6.No significant valvular stenosis or regurgitation seen of remaining visualized valves. 7.Normal pericardium with no significant pericardial effusion. Left pleural effusion seen. Electronically Signed By: Paco Tinoco 18-Dec-2016 16:04:41 -0700 Patient Name: ROXANE DOTY Study Date: 17-Dec-2016 [id number]
--- NOTE | 2016-12-18 17:30 | PN ---
Date/Time of Note Date/Time of Note DATE: 12/18/16 TIME: 10.00 Assessment/Plan VTE Prophylaxis VTE Prophylaxis Intervention: other (eliquis) Lines/Catheters [facility] Saline Lock Urinary Cath still in place: No Assessment/Plan Assessment/Plan 71 yo M sent from dialysis center w due to low blood pressure during hemodialysis managed for the followin. Sepsis likely secondary to infected heel ulcer with impending shock: improved 2. Fluid overload likely secondary to incomplete hemodialysis 3. Infected deep heel / ankle ulcer left leg with early osteo 4. Hypothyroidism 5. High blood pressure: controlled 6. Chronic atrial fibrillation rate controlled 7. Reported history of diabetes type 2 controlled 8. Dyslipidemia 9. End-stage renal disease on hemodialysis Monday / Monday / Monday 10. Anemia of chronic kidney disease 11. History of cirrhosis likely 2/2 Hep B (Core ab positive) 12. PAD 13. Hyperphosphatemia / Mineral bone disease Plan: * f/u podiatry plan for debridement. * discuss goals of care with family * f/u ID and Vasc surgery recs * Phosphate binders per nephro * Continue supportive care and current abx\ * Plan is to return back to [place] on abx after intervention Prophylaxis: Eliquis/PPI Subjective 24 Hr Interval Summary Free Text/Dictation patient was being fed, had no new complaints, good speech and communication efforts Exam/Review of Systems Vital Signs Vitals Vital Signs Date Time Temp Pulse Resp B/P Pulse Ox O2 Delivery O2 Flow Rate FiO2 12/18/16 16:51 2.0 12/18/16 16:01 61 12/18/16 15:51 98.0 18 108/57 98 12/18/16 04:00 Nasal Cannula Intake and Output 12/17/16 12/17/16 12/18/16 15:00 23:00 07:00 Intake Total 100 ml 880 ml Output Total 2000 ml Balance 100 ml -1120 ml Exam General. Alert elderly male, no distress. HEENT: Normocephalic, atraumatic, pupils equal and reactive, mild conjunctival pallor, mild scleral icterus Neck: Supple, nontender, no adenopathy Chest: Diminished breath sounds bilaterally, probable faint crackles in the bases bilaterally, detailed exam difficult. Cardiovascular: Irregularly irregular heart sounds, no murmur. Abdomen: Soft nontender nondistended with normoactive bowel sounds. Extremities: Left lower extremity with stage IV ulcer on the diego and ankle with tissue loss and visible tendons, bandaged, large AV shunt left upper extremity with palpable bruit. Neuro: Alert, no focal deficit, elderly male, mildly lethargic Psych: Forgetful, cooperative with exam. Calm Results Result Diagram: 12/18/16 0532 12/18/16 0532 Results 24 hrs Laboratory Tests Test 12/18/16 05:32 White Blood Count 14.9 H Red Blood Count 2.68 L Hemoglobin 8.0 L Hematocrit 23.7 L Mean Corpuscular Volume 88.4 Mean Corpuscular Hemoglobin 29.9 Mean Corpuscular Hemoglobin Concent 33.8 Red Cell Distribution Width 17.7 H Platelet Count 449 H Mean Platelet Volume 9.7 Neutrophils % 84.2 H Lymphocytes % 5.2 L Monocytes % 7.4 Eosinophils % 1.5 Basophils % 0.3 Nucleated Red Blood Cells % 0.0 Neutrophils # 12.6 H Lymphocytes # 0.8 Monocytes # 1.1 H Eosinophils # 0.2 Basophils # 0.0 Nucleated Red Blood Cells # 0.0 Erythrocyte Sedimentation Rate 96 H Sodium Level 138 Potassium Level 4.6 Chloride Level 98 Carbon Dioxide Level 31 Anion Gap 14 Blood Urea Nitrogen 36 #H Creatinine 4.81 #H Glucose Level 115 Calcium Level 8.5 Total Bilirubin 0.2 Direct Bilirubin 0.00 Indirect Bilirubin 0.2 Aspartate Amino Transf (AST/SGOT) 16 Alanine Aminotransferase (ALT/SGPT) 25 Alkaline Phosphatase 203 H Total Protein 6.7 Albumin 2.8 L Globulin 3.90 H Albumin/Globulin Ratio 0.71 Random Vancomycin Level 15.4 Medications Medications Current Medications Amiodarone HCl (Cordarone) 200 mg DAILY PO Last administered on 12/18/16 08:25 ; Admin Dose 200 MG; Start 12/17/16 at 09:00 Apixaban (Eliquis) 5 mg BID PO Last administered on 12/18/16 08:25; Admin Dose 5 MG; Start 12/16/16 at 21:00 Aspirin (Halfprin) 81 mg DAILY PO Last administered on 12/18/16 08:25; Admin Dose 81 MG; Start 12/17/16 at 09:00 Atorvastatin Calcium (Lipitor) 20 mg QHS PO Last administered on 12/17/16 20:11 ; Admin Dose 20 MG; Start 12/16/16 at 21:00 Lactulose (Enulose) 20 gm HS PO Last administered on 12/17/16 20:11; Admin Dose 20 GM; Start 12/16/16 at 21:00 Lisinopril (Zestril) 20 mg DAILY PO Last administered on 12/18/16 08:25; Admin Dose 20 MG; Start 12/17/16 at 09:00 Loratadine (Claritin) 10 mg DAILY PO Last administered on 12/18/16 08:25; Admin Dose 10 MG; Start 12/17/16 at 09:00 Zolpidem Tartrate (Ambien) 5 mg HS PRN PO INSOMNIA; Start 12/16/16 at 18:00 Escitalopram Oxalate (Lexapro) 5 mg DAILY PO Last administered on 12/18/16 08: 25; Admin Dose 5 MG; Start 12/17/16 at 09:00 Ondansetron HCl (Zofran Inj) 4 mg Q6H PRN IV NAUSEA AND/OR VOMITING; Start 12/16 at 16:30 Pantoprazole (Protonix Tab) 40 mg DAILY@06 PO Last administered on 12/18/16 05: 09; Admin Dose 40 MG; Start 12/17/16 at 06:00 Acetaminophen (Tylenol Tab) 650 mg Q6H PRN PO PAIN AND OR ELEVATED TEMP Last administered on 12/18/16 15:22; Admin Dose 650 MG; Start 12/16/16 at 16:30 Sodium Hypochlorite 1 applic 1 applic BID IRR Last administered on 12/18/16 10: 37; Admin Dose 1 APPLIC; Start 12/17/16 at 09:00 Meropenem 100 ml @ 200 mls/hr DAILY IVPB Last administered on 12/18/16 08:30; Admin Dose 200 MLS/HR; Start 12/17/16 at 12:30 Vancomycin HCl/ Sodium Chloride (Vancocin/NS) 150 ml @ 75 mls/hr 13 IVPB Last administered on 12/18/16 12:28; Admin Dose 75 MLS/HR; Start 12/18/16 at 13:00; Stop 12/18/16 at 23:59 Procedures Procedures PROCEDURE: US bilateral lower extremity arteries. CLINICAL INDICATION: Bilateral leg pain. Claudication that interferes significantly with the patient's lifestyle. TECHNIQUE: Multiple longitudinal and transverse images of the bilateral lower extremity arteries were obtained with medley scale, pulsed Doppler, and color Doppler imaging. COMPARISON: No prior studies are available for comparison. FINDINGS: Right RVDA MASTER CERTIFIED RV TECHNICIAN: 120 cm/sec PSFA: 59 cm/sec MSFA: 64 cm/sec DSFA: 50 cm/sec POP: 67 cm/sec SWING TENDER: 18 cm/sec DPA: 23 cm/sec Left RVDA MASTER CERTIFIED RV TECHNICIAN: 78 cm/sec PSFA: 87 cm/sec MSFA: 69 cm/sec DSFA: 44 cm/sec POP: 66 cm/sec SWING TENDER: 87 cm/sec DPA: 15 cm/sec The ankle-brachial indices were unobtainable due to calcified vessels. There is normal triphasic flow throughout the femoral and popliteal systems bilaterally. Biphasic flow is present in the calf arteries. There is mild plaque throughout bilaterally with no significant stenosis. IMPRESSION: 1. Mild plaque formation without evidence for hemodynamically significant stenosis or occlusion. RPTAT: QQ .Kalpesh Hollingsworth MD, MD Date Time Electronically viewed and signed by .Kalpesh Hollingsworth MD, MD on 12/17/2016 20:29 .R/ CC: STEFANIA VAUGHN MD PROCEDURE: MRI OF THE LEFT ANKLE CLINICAL INDICATION: Left foot ulcer, pain and swelling, concern for osteomyelitis TECHNIQUE: Multiple MRI images were obtained utilizing multiple sequences in multiple planes utilizing multiple pulse sequences. Images were interpreted on a high-resolution PACS system. COMPARISON: Radiographs of the left foot dated December 16, 2016 MRI of the left foot dated December 16, 2016 FINDINGS: Tendons: The Achilles tendon demonstrates moderate tendinosis without evidence of tear. The medial flexor tendons are intact. There is degeneration and flattening of the peroneus brevis tendon at the fibular tip. The anterior extensor tendons are intact. Osseous structures: There is a large lateral skin ulceration along the posterior aspect of the ankle bordering the Achilles tendon and calcaneus ( axial 17 and coronal 14), extending to bone. The underlying calcaneus demonstrates mild marrow edema within the decreased T1 signal (coronal 13), which could reflect early osteomyelitis though no luis enrique osseous erosive changes are present. There is no evidence of acute fracture. Talar dome is normal. There is no coalition. Ligaments: The syndesmotic, low lateral, and deep/superficial deltoid ligaments appear intact noting some bone proliferation at the medial malleolus likely from a remote deep deltoid ligament sprain. Plantar fascia: There is mild thickening of the central cord of the plantar fascia. There is no evidence of fascial tear. Other findings: There is soft tissue swelling surrounding the Achilles tendon adjacent to the ulceration throughout Hoffa's fat pad (sagittal 14). The sinus tarsi is normal. The tarsal tunnel is normal. IMPRESSION: 1. Large lateral ulceration extending to bone along the posterior calcaneal tuberosity bordering the lateral margin of the distal Achilles tendon. The periphery of the underlying calcaneus demonstrates mild abnormal marrow signal suspicious for early osteomyelitis in this setting though no luis enrique cortical erosive changes are present at this time. 2. Diffuse subcutaneous soft tissue swelling adjacent to the skin ulceration and surrounding the Achilles tendon suggestive of cellulitis. No drainable fluid collection. 3. Degeneration and flattening of the peroneus brevis tendon at the fibular tip and moderate distal Achilles tendinosis with posterior calcaneal enthesopathy. 4. No acute fracture or acute ligamentous abnormality. 5. Please see separately dictated MRI of the left foot for further evaluation. RPTAT: UU .Ruben Bishop MD, MD Date Time Electronically viewed and signed by .Ruben Bishop MD, on 12/17/2016 15: 40 .K/ CC: DARYN HER DPM, BOLATITO M. December 18, 2016 17:30
--- NOTE | 2016-12-18 17:52 | CONS ---
Date/Time of Note Date/Time of Note DATE: 12/18/16 TIME: 17:51 Assessment/Plan Assessment/Plan Chief Complaint/Hosp Course IMPRESSION: 1. Patient has possible systemic inflammatory response syndrome. 2. Leukocytosis, possible sepsis. 3. End-stage renal disease. 4. Hypertension. 5. Chronic obstructive pulmonary disease. 6. Atrial fibrillation. 7. Anemia. 8. Elevated BNP. 9 foot wound plan hd AM Problems: Consultation Date/Type/Reason Admit Date/Time December 16, 2016 at 12:07 Type of Consultation: renal Referring Provider: ANDREA ALVARADO 24 HR Interval Summary Constitutional: no complaints Exam/Review of Systems Vital Signs Vitals Vital Signs Date Time Temp Pulse Resp B/P Pulse Ox O2 Delivery O2 Flow Rate FiO2 12/18/16 16:51 2.0 12/18/16 16:01 61 12/18/16 15:51 98.0 18 108/57 98 12/18/16 04:00 Nasal Cannula Intake and Output 12/17/16 12/17/16 12/18/16 15:00 23:00 07:00 Intake Total 100 ml 880 ml Output Total 2000 ml Balance 100 ml -1120 ml Exam Cardiovascular: regular rate and rhythm Gastrointestinal: soft Musculoskeletal: nl extremities to inspection Extremities: normal pulses Results Result Diagram: 12/18/16 0532 12/18/16 0532 Results 24 hrs Laboratory Tests Test 12/18/16 05:32 White Blood Count 14.9 H Red Blood Count 2.68 L Hemoglobin 8.0 L Hematocrit 23.7 L Mean Corpuscular Volume 88.4 Mean Corpuscular Hemoglobin 29.9 Mean Corpuscular Hemoglobin Concent 33.8 Red Cell Distribution Width 17.7 H Platelet Count 449 H Mean Platelet Volume 9.7 Neutrophils % 84.2 H Lymphocytes % 5.2 L Monocytes % 7.4 Eosinophils % 1.5 Basophils % 0.3 Nucleated Red Blood Cells % 0.0 Neutrophils # 12.6 H Lymphocytes # 0.8 Monocytes # 1.1 H Eosinophils # 0.2 Basophils # 0.0 Nucleated Red Blood Cells # 0.0 Erythrocyte Sedimentation Rate 96 H Sodium Level 138 Potassium Level 4.6 Chloride Level 98 Carbon Dioxide Level 31 Anion Gap 14 Blood Urea Nitrogen 36 #H Creatinine 4.81 #H Glucose Level 115 Calcium Level 8.5 Total Bilirubin 0.2 Direct Bilirubin 0.00 Indirect Bilirubin 0.2 Aspartate Amino Transf (AST/SGOT) 16 Alanine Aminotransferase (ALT/SGPT) 25 Alkaline Phosphatase 203 H Total Protein 6.7 Albumin 2.8 L Globulin 3.90 H Albumin/Globulin Ratio 0.71 Random Vancomycin Level 15.4 Medications Medications Current Medications Amiodarone HCl (Cordarone) 200 mg DAILY PO Last administered on 12/18/16 08:25 ; Admin Dose 200 MG; Start 12/17/16 at 09:00 Apixaban (Eliquis) 5 mg BID PO Last administered on 12/18/16 08:25; Admin Dose 5 MG; Start 12/16/16 at 21:00 Aspirin (Halfprin) 81 mg DAILY PO Last administered on 12/18/16 08:25; Admin Dose 81 MG; Start 12/17/16 at 09:00 Atorvastatin Calcium (Lipitor) 20 mg QHS PO Last administered on 12/17/16 20:11 ; Admin Dose 20 MG; Start 12/16/16 at 21:00 Lactulose (Enulose) 20 gm HS PO Last administered on 12/17/16 20:11; Admin Dose 20 GM; Start 12/16/16 at 21:00 Lisinopril (Zestril) 20 mg DAILY PO Last administered on 12/18/16 08:25; Admin Dose 20 MG; Start 12/17/16 at 09:00 Loratadine (Claritin) 10 mg DAILY PO Last administered on 12/18/16 08:25; Admin Dose 10 MG; Start 12/17/16 at 09:00 Zolpidem Tartrate (Ambien) 5 mg HS PRN PO INSOMNIA; Start 12/16/16 at 18:00 Escitalopram Oxalate (Lexapro) 5 mg DAILY PO Last administered on 12/18/16 08: 25; Admin Dose 5 MG; Start 12/17/16 at 09:00 Ondansetron HCl (Zofran Inj) 4 mg Q6H PRN IV NAUSEA AND/OR VOMITING; Start 12/16 at 16:30 Pantoprazole (Protonix Tab) 40 mg DAILY@06 PO Last administered on 12/18/16 05: 09; Admin Dose 40 MG; Start 12/17/16 at 06:00 Acetaminophen (Tylenol Tab) 650 mg Q6H PRN PO PAIN AND OR ELEVATED TEMP Last administered on 12/18/16 15:22; Admin Dose 650 MG; Start 12/16/16 at 16:30 Sodium Hypochlorite 1 applic 1 applic BID IRR Last administered on 12/18/16 10: 37; Admin Dose 1 APPLIC; Start 12/17/16 at 09:00 Meropenem 100 ml @ 200 mls/hr DAILY IVPB Last administered on 12/18/16 08:30; Admin Dose 200 MLS/HR; Start 12/17/16 at 12:30 Vancomycin HCl/ Sodium Chloride (Vancocin/NS) 150 ml @ 75 mls/hr 13 IVPB Last administered on 12/18/16 12:28; Admin Dose 75 MLS/HR; Start 12/18/16 at 13:00; Stop 12/18/16 at 23:59 MAGUI PINEDA MD December 18, 2016 17:52
[2016-12-18] MEDS ORDERED: morphine 10 MG INJ IM PRN (19:00)
[2016-12-18 19:42] LABS: HEMATOCRIT 24.9 % (42.0-52.0); HEMOGLOBIN 8.1 g/dl (14.0-18.0)
[2016-12-18] MEDS: ATORVASTATIN 20 MG TAB PO SCH (20:13)
[2016-12-18] MEDS: LACTULOSE 30ML CUP PO SCH (20:14)
[2016-12-19] VITALS (17 sets, daily range): BP systolic 97–128; BP diastolic 44–66; PULSE 50–80; RESP 15–18
[2016-12-19] MEDS: HYDROCODONE/APAP (7.5/325) TAB PO PRN (00:22)
[2016-12-19 01:03] LABS: HEMATOCRIT 23.6 % (42.0-52.0); HEMOGLOBIN 7.7 g/dl (14.0-18.0)
[2016-12-19] MEDS: PANTOPRAZOLE (EC) 40 MG TAB PO SCH (05:16)
[2016-12-19] MEDS: LEVOTHYROXINE 100 MCG TAB PO SCH (06:46)
--- NOTE | 2016-12-19 08:18 | CONS ---
Date/Time of Note Date/Time of Note DATE: 12/19/16 TIME: 08:16 Consult Date/Type/Reason Admit Date/Time December 18, 2016 at 09:46 Initial Consult Date 12/17/16 Type of Consultation: Endovascular Cardiology Ordering Provider: ANDREA ALVARADO Objective Vital Signs Date Time Temp Pulse Resp B/P Pulse Ox O2 Delivery O2 Flow Rate FiO2 12/19/16 08:04 66 12/19/16 07:18 98.0 16 109/66 99 12/18/16 22:25 2.0 12/18/16 19:45 Nasal Cannula Intake and Output 12/18/16 12/18/16 12/19/16 15:00 23:00 07:00 Intake Total 250 ml 700 ml Balance 250 ml 700 ml Results/Medications Result Diagram: 12/19/16 0056 12/18/16 0532 Results 24 hrs Laboratory Tests Test 12/18/16 19:25 12/19/16 00:56 Hemoglobin 8.1 L 7.7 L Hematocrit 24.9 L 23.6 L Medications Current Medications Amiodarone HCl (Cordarone) 200 mg DAILY PO Last administered on 12/18/16 08:25 ; Admin Dose 200 MG; Start 12/17/16 at 09:00 Apixaban (Eliquis) 5 mg BID PO Last administered on 12/18/16 20:14; Admin Dose 5 MG; Start 12/16/16 at 21:00 Aspirin (Halfprin) 81 mg DAILY PO Last administered on 12/18/16 08:25; Admin Dose 81 MG; Start 12/17/16 at 09:00 Atorvastatin Calcium (Lipitor) 20 mg QHS PO Last administered on 12/18/16 20:13 ; Admin Dose 20 MG; Start 12/16/16 at 21:00 Lactulose (Enulose) 20 gm HS PO Last administered on 12/18/16 20:14; Admin Dose 20 GM; Start 12/16/16 at 21:00 Lisinopril (Zestril) 20 mg DAILY PO Last administered on 12/18/16 08:25; Admin Dose 20 MG; Start 12/17/16 at 09:00 Loratadine (Claritin) 10 mg DAILY PO Last administered on 12/18/16 08:25; Admin Dose 10 MG; Start 12/17/16 at 09:00 Zolpidem Tartrate (Ambien) 5 mg HS PRN PO INSOMNIA; Start 12/16/16 at 18:00 Escitalopram Oxalate (Lexapro) 5 mg DAILY PO Last administered on 12/18/16 08: 25; Admin Dose 5 MG; Start 12/17/16 at 09:00 Ondansetron HCl (Zofran Inj) 4 mg Q6H PRN IV NAUSEA AND/OR VOMITING; Start 12/16 at 16:30 Pantoprazole (Protonix Tab) 40 mg DAILY@06 PO Last administered on 12/19/16 05: 16; Admin Dose 40 MG; Start 12/17/16 at 06:00 Acetaminophen (Tylenol Tab) 650 mg Q6H PRN PO PAIN AND OR ELEVATED TEMP Last administered on 12/18/16 15:22; Admin Dose 650 MG; Start 12/16/16 at 16:30 Sodium Hypochlorite 1 applic 1 applic BID IRR Last administered on 12/18/16 10: 37; Admin Dose 1 APPLIC; Start 12/17/16 at 09:00 Meropenem (Merrem 500 Mg/ 100 ml (Pmx)) 100 ml @ 200 mls/hr DAILY IVPB Last administered on 12/18/16 08:30; Admin Dose 200 MLS/HR; Start 12/17/16 at 12:30 Morphine Sulfate (morphine) 2 mg Q4H PRN IM SEVERE PAIN LEVEL 7-10; Start at 19:00 Acetaminophen/ Hydrocodone Bitart (Charmco (7.5-325)) 1 tab Q6H PRN PO MODERATE PAIN LEVEL 4-6 Last administered on 12/19/16 00:22; Admin Dose 1 TAB; Start 12/18 at 19:00 Assessment/Plan Chief Complaint/Hosp Course Patient is 71 year old Male with PMH of HTn, HlD< CAD , ESRD on HD who came in from HD to here due to low BP. pt has nonhealing foot ulcer in lateral aspect of left heel likely PT/Peroneal territory with failed skin graft. I was consulted for possible PAD revascularization with possible pedal loop revasculariztion in the setting of non healing wound. Problems: Additional Assessment/Plan The ankle-brachial indices were unobtainable due to calcified vessels. There is normal triphasic flow throughout the femoral and popliteal systems bilaterally. Biphasic flow is present in the calf arteries. There is mild plaque throughout bilaterally with no significant stenosis. Patient has severe below the knee disease with micro vessels disease preventing wound healing. PT will need 6 weeks of Abx will need PICC line. will ask PICC line nurse to place it D/w Daughter will plan for out pt leg angiogram once stable plan to get PICC and Abx set up and d/c home Pt will ./f.u with me for vascular disease, and leg aniogram. STEFANIA VAUGHN MD December 19, 2016 08:18
[2016-12-19] MEDS: ASPIRIN (EC) 81 MG TAB PO SCH (08:44)
[2016-12-19] MEDS: CALCIUM ACETATE 667 MG CAP PO SCH ×3 (08:44→17:46)
[2016-12-19] MEDS: LORATADINE 10 MG TAB PO SCH (08:45)
[2016-12-19] MEDS: ESCITALOPRAM 10 MG TAB PO SCH (08:45)
[2016-12-19] MEDS: MEROPENEM 500 MG/100 ML (PMX) 100 ML IVPB SCH (08:46)
[2016-12-19] MEDS: SODIUM HYPOCHLORITE 1/40% 1L IRRIG IRR SCH ×2 (08:46→21:42)
[2016-12-19] MEDS: APIXABAN 5 MG TABLET PO SCH ×2 (08:46→21:42)
[2016-12-19] MEDS: LISINOPRIL 20 MG TAB PO SCH (08:46)
[2016-12-19] MEDS: AMIODARONE 200 MG TAB PO SCH (08:46)
--- NOTE | 2016-12-19 10:35 | PN ---
DATE: 12/19/2016 SUBJECTIVE: No acute events overnight. Patient awaiting PRBC transfusion and PICC line placement. OBJECTIVE VITAL SIGNS: Stable. GENERAL: The patient is lying in bed, no acute distress. HEENT: Pupils equal, round, react to light. Extraocular muscles intact. NECK: Supple, no thyromegaly. LUNGS: Slightly decreased breath sounds bilaterally. CARDIOVASCULAR: Irregularly irregular heart sounds. No rubs or gallops. ABDOMEN: Soft, nontender, nondistended. Normal bowel sounds. MUSCULOSKELETAL: Stage IV ulcer on the heel and ankle of left lower extremity, bandaged, although h as no lower extremity edema bilaterally. NEUROLOGIC: No focal deficits. LABORATORY DATA: Hemoglobin 7.7, hematocrit 23.6. There is no full CBC back yet. There is no basi c metabolic panel back yet. From 12/17/2016, the hepatitis B core total antibody is reactive. ASSESSMENT AND PLAN: A 71-year-old male sent in from dialysis center with hypotension with sepsis s econdary to infected heel ulcer, now improving. 1. Sepsis, again secondary to infected heel ulcer. There was impending shock, now improved. Phil nue to follow up recommendations from infectious disease team. Continue broad spectrum antibiotics. Per their recommendations and per vascular surgery recommendations, the patient will need IV antib iotics for 6 weeks. PICC line placement is pending. Follow up with infectious disease about which antibiotics to place. Again, patient did have an excisional debridement performed of the left later al foot ulceration that was performed 24 hours ago. Followup postop recommendations. 2. Hypertension. Blood pressure stable. Continue current blood pressure medicines. 3. Hypothyroidism, stable. Continue current medications. 4. Chronic atrial fibrillation, presently rate controlled. The patient is on Eliquis as well. 5. End-stage renal disease on dialysis. Follow up renal recommendations for dialysis today. 6. Anemia. Patient for PRBC transfusion today, most likely secondary to chronic kidney disease, an emia. 7. 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 Continu e to monitor for now. Follow up infectious disease recommendations. 8. Fluid overload secondary to incomplete dialysis again hemodialysis per renal recommendations. 9. DVT prophylaxis, he is on Eliquis. 10. PPI. Consider PT consult as well. Dictated By: CHRISTEN WATTS Conf#: [id number] [facility]#: [id number]
--- NOTE | 2016-12-19 19:14 | CONS ---
Date/Time of Note Date/Time of Note DATE: 12/19/16 TIME: 19:12 Assessment/Plan Assessment/Plan Chief Complaint/Hosp Course - sepsis due to infected wound of L heel - diabetic infection of L foot (heel), soft tissue damage s/p excisional debridement 12/18/2016 - ESRD on HD via AVF in LUE - DM - HTN associated with DM - CAD and CHF - A fib - COPD and asthma - hypothyroidism - anemia - liver cirrhosis per EMR - elevated alk phos, source can be either the biliary tract or bone Recommendations: - continue renally dosed meropenem (12/17/2016-) and IV vancomycin (12/16/2016-); will adjust his antibiotics based on final culture results (prelim cx negative to date) - will likely need 6 weeks of abx based on most recent imaging results - likely to require staged debridement per Dr. Sandoval Management d/w nursing staff and Dr. Rodriguez Problems: Consultation Date/Type/Reason Admit Date/Time December 18, 2016 at 09:46 Initial Consult Date 12/17/16 Type of Consultation: Infectious Disease Referring Provider: ANDREA ALVARADO 24 HR Interval Summary Free Text/Dictation DC planning in progress and nursing asking for clarification re: abx and need for central line placement; Dr. Cancino does not want PICC line placement at this time and is asking if abx can be given with HD per d/w CORDELL Hernandez. Denies pain or SOB. Exam/Review of Systems Vital Signs Vitals Vital Signs Date Time Temp Pulse Resp B/P Pulse Ox O2 Delivery O2 Flow Rate FiO2 12/19/16 17:08 2.0 12/19/16 16:06 63 12/19/16 15:09 98.0 18 106/65 100 12/19/16 14:56 Nasal Cannula Intake and Output 12/18/16 12/18/16 12/19/16 15:00 23:00 07:00 Intake Total 250 ml 700 ml Balance 250 ml 700 ml Exam Constitutional: alert, oriented, well developed Psych: nl mood/affect Head: atraumatic, normocephalic Eyes: nl sclera Neck: supple Respiratory: clear to auscultation, normal air movement Cardiovascular: irregular rhythm Gastrointestinal: non-tender, soft Musculoskeletal: other (LUE AVF with +bruit/thrill) Neurological: nl mental status, nl speech ([place]amb[place]ian speaking) Skin: nl turgor, other (Wound - see nurse note for details; Left foot dressing intact with blood stain on heel) Results Result Diagram: 12/19/16 0056 12/18/16 0532 Results 24 hrs Laboratory Tests Test 12/18/16 19:25 12/19/16 00:56 Hemoglobin 8.1 L 7.7 L Hematocrit 24.9 L 23.6 L Medications Medications Current Medications Amiodarone HCl (Cordarone) 200 mg DAILY PO Last administered on 12/18/16 08:25 ; Admin Dose 200 MG; Start 12/17/16 at 09:00 Apixaban (Eliquis) 5 mg BID PO Last administered on 12/19/16 08:46; Admin Dose 5 MG; Start 12/16/16 at 21:00 Aspirin (Halfprin) 81 mg DAILY PO Last administered on 12/19/16 08:44; Admin Dose 81 MG; Start 12/17/16 at 09:00 Atorvastatin Calcium (Lipitor) 20 mg QHS PO Last administered on 12/18/16 20:13 ; Admin Dose 20 MG; Start 12/16/16 at 21:00 Lactulose (Enulose) 20 gm HS PO Last administered on 12/18/16 20:14; Admin Dose 20 GM; Start 12/16/16 at 21:00 Lisinopril (Zestril) 20 mg DAILY PO Last administered on 12/18/16 08:25; Admin Dose 20 MG; Start 12/17/16 at 09:00 Loratadine (Claritin) 10 mg DAILY PO Last administered on 12/19/16 08:45; Admin Dose 10 MG; Start 12/17/16 at 09:00 Zolpidem Tartrate (Ambien) 5 mg HS PRN PO INSOMNIA; Start 12/16/16 at 18:00 Escitalopram Oxalate (Lexapro) 5 mg DAILY PO Last administered on 12/19/16 08: 45; Admin Dose 5 MG; Start 12/17/16 at 09:00 Ondansetron HCl (Zofran Inj) 4 mg Q6H PRN IV NAUSEA AND/OR VOMITING; Start 12/16 at 16:30 Pantoprazole (Protonix Tab) 40 mg DAILY@06 PO Last administered on 12/19/16 05: 16; Admin Dose 40 MG; Start 12/17/16 at 06:00 Acetaminophen (Tylenol Tab) 650 mg Q6H PRN PO PAIN AND OR ELEVATED TEMP Last administered on 12/18/16 15:22; Admin Dose 650 MG; Start 12/16/16 at 16:30 Sodium Hypochlorite 1 applic 1 applic BID IRR Last administered on 12/19/16 08: 46; Admin Dose 1 APPLIC; Start 12/17/16 at 09:00 Meropenem (Merrem 500 Mg/ 100 ml (Pmx)) 100 ml @ 200 mls/hr DAILY IVPB Last administered on 12/19/16 08:46; Admin Dose 200 MLS/HR; Start 12/17/16 at 12:30 Morphine Sulfate (morphine) 2 mg Q4H PRN IM SEVERE PAIN LEVEL 7-10; Start at 19:00 Acetaminophen/ Hydrocodone Bitart ([place] (7.5-325)) 1 tab Q6H PRN PO MODERATE PAIN LEVEL 4-6 Last administered on 12/19/16 00:22; Admin Dose 1 TAB; Start 12/18 at 19:00 ROD PONCE NP December 19, 2016 19:14
[2016-12-19] MEDS: ATORVASTATIN 20 MG TAB PO SCH (21:42)
[2016-12-19] MEDS: LACTULOSE 30ML CUP PO SCH (21:45)
--- NOTE | 2016-12-19 23:32 | CONS ---
Date/Time of Note Date/Time of Note DATE: 12/19/16 TIME: 23:31 Assessment/Plan Assessment/Plan Chief Complaint/Hosp Course IMPRESSION: 1. Patient has possible systemic inflammatory response syndrome. 2. Leukocytosis, possible sepsis. 3. End-stage renal disease. 4. Hypertension. 5. Chronic obstructive pulmonary disease. 6. Atrial fibrillation. 7. Anemia. 8. Elevated BNP. 9 foot wound plan hd AM Problems: Consultation Date/Type/Reason Admit Date/Time December 18, 2016 at 09:46 Type of Consultation: renal Referring Provider: ANDREA ALVARADO 24 HR Interval Summary Constitutional: no complaints Exam/Review of Systems Vital Signs Vitals Vital Signs Date Time Temp Pulse Resp B/P Pulse Ox O2 Delivery O2 Flow Rate FiO2 12/19/16 23:23 98.2 68 18 124/59 100 12/19/16 17:08 2.0 12/19/16 14:56 Nasal Cannula Intake and Output 12/18/16 12/18/16 12/19/16 15:00 23:00 07:00 Intake Total 250 ml 700 ml Balance 250 ml 700 ml Exam Neck: supple Respiratory: clear to auscultation, congested cough, crackles/rales, normal air movement Cardiovascular: regular rate and rhythm Gastrointestinal: ascites, bowel sounds (+), soft Extremities: edema (+) Results Result Diagram: 12/19/16 0056 12/18/16 0532 Results 24 hrs Laboratory Tests Test 12/19/16 00:56 Hemoglobin 7.7 L Hematocrit 23.6 L Medications Medications Current Medications Amiodarone HCl (Cordarone) 200 mg DAILY PO Last administered on 12/18/16 08:25 ; Admin Dose 200 MG; Start 12/17/16 at 09:00 Apixaban (Eliquis) 5 mg BID PO Last administered on 12/19/16 21:42; Admin Dose 5 MG; Start 12/16/16 at 21:00 Aspirin (Halfprin) 81 mg DAILY PO Last administered on 12/19/16 08:44; Admin Dose 81 MG; Start 12/17/16 at 09:00 Atorvastatin Calcium (Lipitor) 20 mg QHS PO Last administered on 12/19/16 21:42 ; Admin Dose 20 MG; Start 12/16/16 at 21:00 Lactulose (Enulose) 20 gm HS PO Last administered on 12/19/16 21:45; Admin Dose 20 GM; Start 12/16/16 at 21:00 Lisinopril (Zestril) 20 mg DAILY PO Last administered on 12/18/16 08:25; Admin Dose 20 MG; Start 12/17/16 at 09:00 Loratadine (Claritin) 10 mg DAILY PO Last administered on 12/19/16 08:45; Admin Dose 10 MG; Start 12/17/16 at 09:00 Zolpidem Tartrate (Ambien) 5 mg HS PRN PO INSOMNIA; Start 12/16/16 at 18:00 Escitalopram Oxalate (Lexapro) 5 mg DAILY PO Last administered on 12/19/16 08: 45; Admin Dose 5 MG; Start 12/17/16 at 09:00 Ondansetron HCl (Zofran Inj) 4 mg Q6H PRN IV NAUSEA AND/OR VOMITING; Start 12/16 at 16:30 Pantoprazole (Protonix Tab) 40 mg DAILY@06 PO Last administered on 12/19/16 05: 16; Admin Dose 40 MG; Start 12/17/16 at 06:00 Acetaminophen (Tylenol Tab) 650 mg Q6H PRN PO PAIN AND OR ELEVATED TEMP Last administered on 12/18/16 15:22; Admin Dose 650 MG; Start 12/16/16 at 16:30 Sodium Hypochlorite 1 applic 1 applic BID IRR Last administered on 12/19/16 21: 42; Admin Dose 1 APPLIC; Start 12/17/16 at 09:00 Meropenem (Merrem 500 Mg/ 100 ml (Pmx)) 100 ml @ 200 mls/hr DAILY IVPB Last administered on 12/19/16 08:46; Admin Dose 200 MLS/HR; Start 12/17/16 at 12:30 Morphine Sulfate (morphine) 2 mg Q4H PRN IM SEVERE PAIN LEVEL 7-10; Start at 19:00 Acetaminophen/ Hydrocodone Bitart ([place] (7.5-325)) 1 tab Q6H PRN PO MODERATE PAIN LEVEL 4-6 Last administered on 12/19/16 00:22; Admin Dose 1 TAB; Start 12/18 at 19:00 MAGUI PINEDA MD December 19, 2016 23:32
[2016-12-20] VITALS (12 sets, daily range): BP systolic 113–127; BP diastolic 62–73; PULSE 60–81; RESP 16–20
--- NOTE | 2016-12-20 04:26 | CONS ---
DATE OF ADMISSION: 12/18/2016 DATE OF CONSULTATION: 12/19/2016 SUBJECTIVE FINDINGS: The patient being followed for a left foot ulceration, status post debridement. He had heavy straight through drainage. He had 2 units of packed RBCs. The patient without any acute complaints. OBJECTIVE FINDINGS: VITAL SIGNS: Temperature 98.1, pulse 69, respiratory 18, blood pressure 114/58 , pulse ox is 98%. GENERAL: The patient awake, alert and in no acute distress. LUNGS: Regular respiration. EXTREMITIES: Patient with moderate sanguineous drainage through the left foot. Ulceration measuring 6 x 10 cm with exposed tendon calcaneus fibula. Improved wound bed appearance. No signs of active bleeding. The patient has pain with palpation. LABORATORIES: WBC 14.9, hemoglobin 7.7, hematocrit 23.6, platelets 449. Sodium 138, potassium 4.6, chloride 98, CO2 of 31, BUN 36, creatinine 4.81. Sed rate is 96. Wound cultures, preliminary, no organisms seen. MRSA of nares negative. Blood cultures no growth. Arterial, noninvasive, mild plaque formation without evidence of hemodynamically significant stenosis or occlusion. MRI with large lateral ulceration to bone of the posterior calcaneus up to border of Achilles tendon, diffuse edema, bone marrow signal normal without luis enrique cortical erosions of the mid foot. ASSESSMENT: 1. Left foot and ankle cellulitis with extensive soft tissue loss from prior surgical debridement. 2. Sepsis. 3. End-stage renal disease on hemodialysis. 4. Acute on chronic anemia, status post 2 units of transfusion. 5. Liver cirrhosis. PLAN: The patient seen and evaluated. Continue to monitor blood loss. There are no signs of active bleeding which require alternative methods of hemostasis. Continue to monitor H and H and consider further type and cross for transfusion. I appreciate ID recommendations. The patient currently on meropenem and vancomycin. Antibiotics recommended due to exposed bone, extensive tissue loss and radiographic imaging. The patient at high risk for limb loss. Dictated By: DARYN GARDNER/BAKARI Conf#: [id number] DID#: [id number] MTDD
[2016-12-20] MEDS: LEVOTHYROXINE 100 MCG TAB PO SCH (06:14)
[2016-12-20] MEDS: PANTOPRAZOLE (EC) 40 MG TAB PO SCH (06:14)
[2016-12-20] MEDS: HYDROCODONE/APAP (7.5/325) TAB PO PRN (06:14)
[2016-12-20 08:28] LABS: ADD SCAN DIFF NO
[2016-12-20] MEDS: LISINOPRIL 20 MG TAB PO SCH (08:47)
[2016-12-20] MEDS: ESCITALOPRAM 10 MG TAB PO SCH (08:47)
[2016-12-20] MEDS: APIXABAN 5 MG TABLET PO SCH ×2 (08:47→20:55)
[2016-12-20] MEDS: CALCIUM ACETATE 667 MG CAP PO SCH ×3 (08:47→17:42)
[2016-12-20] MEDS: AMIODARONE 200 MG TAB PO SCH (08:47)
[2016-12-20] MEDS: LORATADINE 10 MG TAB PO SCH (08:48)
[2016-12-20] MEDS: SODIUM HYPOCHLORITE 1/40% 1L IRRIG IRR SCH ×2 (08:48→20:55)
[2016-12-20] MEDS: ASPIRIN (EC) 81 MG TAB PO SCH (08:48)
[2016-12-20] MEDS: MEROPENEM 500 MG/100 ML (PMX) 100 ML IVPB SCH (08:48)
[2016-12-20 08:49] LABS: BASOPHIL # 0.1 10^3/ul (0.0-0.1); BASOPHILS % 0.3 % (0.0-2.0); EOSINOPHILS # 0.2 10^3/ul (0.0-0.5); EOSINOPHILS % 1.2 % (0.0-7.0); HEMATOCRIT 28.4 % (42.0-52.0); HEMOGLOBIN 9.3 g/dl (14.0-18.0); LYMPHOCYTES # 0.7 10^3/ul (0.8-2.9); LYMPHOCYTES % 4.9 % (15.0-51.0); MEAN CORPUSCULAR HEMOGLOBIN 29.2 pg (29.0-33.0); MEAN CORPUSCULAR HGB CONC 32.7 g/dl (32.0-37.0); MEAN CORPUSCULAR VOLUME 89.3 fl (82.0-101.0); MEAN PLATELET VOLUME 9.9 fl (7.4-10.4); MONOCYTE # 1.1 10^3/ul (0.3-0.9); MONOCYTES % 7.4 % (0.0-11.0); NEUTROPHIL # 12.3 10^3/ul (1.6-7.5); NEUTROPHILS % 84.8 % (39.0-77.0); PLATELET COUNT 420 10^3/UL (140-415); RED BLOOD COUNT 3.18 10^6/ul (4.70-6.10); RED CELL DISTRIBUTION WIDTH 17.8 % (11.5-14.5); WHITE BLOOD COUNT 14.5 10^3/ul (4.8-10.8)
[2016-12-20 09:16] LABS: CALCIUM 8.9 mg/dl (8.4-10.2); CREATININE 4.34 mg/dl (0.61-1.24); POTASSIUM 5.8 mmol/L (3.5-5.1)
--- NOTE | 2016-12-20 09:47 | PN ---
Date/Time of Note Date/Time of Note DATE: 12/20/16 TIME: 09:45 Assessment/Plan VTE Prophylaxis VTE Prophylaxis Intervention: other (Eliquis) Lines/Catheters IV [facility]from [facility] Urinary Cath still in place: No Assessment/Plan Chief Complaint/Hosp Course ASSESSMENT AND PLAN: 71-year-old male sent in from dialysis center with hypotension with sepsis secondary to infected heel ulcer, now improving. 1. Sepsis, again secondary to infected heel ulcer. There was impending shock, now improved. The patient did have an excisional debridement performed of the left lateral foot ulceration POD # 2. - Continue to follow up recommendations from infectious disease team. - Continue broad spectrum antibiotics. Per their recommendations and per vascular surgery recommendations, the patient will need IV antibiotics for 6 weeks. Follow up with infectious disease about which antibiotics to place. 2. Hypertension. Blood pressure stable. Continue current blood pressure medicines. 3. Hypothyroidism, stable. Continue current medications. 4. Chronic atrial fibrillation, presently rate controlled. The patient is on Eliquis as well. 5. End-stage renal disease on dialysis. Follow up renal recommendations for dialysis 6. Anemia - s/p PRBC transfusion, most likely secondary to chronic kidney disease, anemia - monitor 7. 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 Continue to monitor for now. Follow up infectious disease recommendations. 8. Fluid overload secondary to incomplete dialysis again hemodialysis per renal recommendations. 9. DVT prophylaxis, he is on Eliquis. 10. PPI. Consider PT consult as well. Problems: Subjective 24 Hr Interval Summary Free Text/Dictation No acute events overnight, pt received pRBC and PICC yesterday. Exam/Review of Systems Vital Signs Vitals Vital Signs Date Time Temp Pulse Resp B/P Pulse Ox O2 Delivery O2 Flow Rate FiO2 12/20/16 09:25 81 12/20/16 07:23 98.0 16 127/73 100 12/20/16 01:07 2.0 12/19/16 21:30 Nasal Cannula Intake and Output 12/19/16 12/19/16 12/20/16 15:00 23:00 07:00 Intake Total 600 ml 920 ml 400 ml Output Total 2300 ml Balance -1700 ml 920 ml 400 ml Exam GENERAL: The patient is lying in bed, no acute distress. HEENT: Pupils equal, round, react to light. Extraocular muscles intact. NECK: Supple, no thyromegaly. LUNGS: Slightly decreased breath sounds bilaterally. CARDIOVASCULAR: Irregularly irregular heart sounds. No rubs or gallops. ABDOMEN: Soft, nontender, nondistended. Normal bowel sounds. MUSCULOSKELETAL: Stage IV ulcer on the heel and ankle of left lower extremity, bandaged, although has no lower extremity edema bilaterally. NEUROLOGIC: No focal deficits. Results Result Diagram: 12/20/16 0710 12/20/16 0710 Results 24 hrs Laboratory Tests Test 12/20/16 07:10 White Blood Count 14.5 H Red Blood Count 3.18 L Hemoglobin 9.3 #L Hematocrit 28.4 #L Mean Corpuscular Volume 89.3 Mean Corpuscular Hemoglobin 29.2 Mean Corpuscular Hemoglobin Concent 32.7 Red Cell Distribution Width 17.8 H Platelet Count 420 H Mean Platelet Volume 9.9 Neutrophils % 84.8 H Lymphocytes % 4.9 L Monocytes % 7.4 Eosinophils % 1.2 Basophils % 0.3 Nucleated Red Blood Cells % 0.0 Neutrophils # 12.3 H Lymphocytes # 0.7 L Monocytes # 1.1 H Eosinophils # 0.2 Basophils # 0.1 Nucleated Red Blood Cells # 0.0 Sodium Level 134 L Potassium Level 5.8 H Chloride Level 98 Carbon Dioxide Level 25 Anion Gap 17 H Blood Urea Nitrogen 36 H Creatinine 4.34 H Glucose Level 110 Calcium Level 8.9 Medications Medications Current Medications Amiodarone HCl (Cordarone) 200 mg DAILY PO Last administered on 12/20/16 08:47 ; Admin Dose 200 MG; Start 12/17/16 at 09:00 Apixaban (Eliquis) 5 mg BID PO Last administered on 12/20/16 08:47; Admin Dose 5 MG; Start 12/16/16 at 21:00 Aspirin (Halfprin) 81 mg DAILY PO Last administered on 12/20/16 08:48; Admin Dose 81 MG; Start 12/17/16 at 09:00 Atorvastatin Calcium (Lipitor) 20 mg QHS PO Last administered on 12/19/16 21:42 ; Admin Dose 20 MG; Start 12/16/16 at 21:00 Lactulose (Enulose) 20 gm HS PO Last administered on 12/19/16 21:45; Admin Dose 20 GM; Start 12/16/16 at 21:00 Lisinopril (Zestril) 20 mg DAILY PO Last administered on 12/20/16 08:47; Admin Dose 20 MG; Start 12/17/16 at 09:00 Loratadine (Claritin) 10 mg DAILY PO Last administered on 12/20/16 08:48; Admin Dose 10 MG; Start 12/17/16 at 09:00 Zolpidem Tartrate (Ambien) 5 mg HS PRN PO INSOMNIA; Start 12/16/16 at 18:00 Escitalopram Oxalate (Lexapro) 5 mg DAILY PO Last administered on 12/20/16 08: 47; Admin Dose 5 MG; Start 12/17/16 at 09:00 Ondansetron HCl (Zofran Inj) 4 mg Q6H PRN IV NAUSEA AND/OR VOMITING; Start 12/16 at 16:30 Pantoprazole (Protonix Tab) 40 mg DAILY@06 PO Last administered on 12/20/16 06: 14; Admin Dose 40 MG; Start 12/17/16 at 06:00 Acetaminophen (Tylenol Tab) 650 mg Q6H PRN PO PAIN AND OR ELEVATED TEMP Last administered on 12/18/16 15:22; Admin Dose 650 MG; Start 12/16/16 at 16:30 Sodium Hypochlorite 1 applic 1 applic BID IRR Last administered on 12/20/16 08: 48; Admin Dose 1 APPLIC; Start 12/17/16 at 09:00 Meropenem (Merrem 500 Mg/ 100 ml (Pmx)) 100 ml @ 200 mls/hr DAILY IVPB Last administered on 12/20/16 08:48; Admin Dose 200 MLS/HR; Start 12/17/16 at 12:30 Morphine Sulfate (morphine) 2 mg Q4H PRN IM SEVERE PAIN LEVEL 7-10; Start at 19:00 Acetaminophen/ Hydrocodone Bitart ([place] (7.5-325)) 1 tab Q6H PRN PO MODERATE PAIN LEVEL 4-6 Last administered on 12/20/16 06:14; Admin Dose 1 TAB; Start 12/18 at 19:00 CHRISTEN GUERRA December 20, 2016 09:47
--- NOTE | 2016-12-20 14:55 | CONS ---
Date/Time of Note Date/Time of Note DATE: 12/20/16 TIME: 14:53 Consult Date/Type/Reason Admit Date/Time December 18, 2016 at 09:46 Initial Consult Date 12/17/16 Type of Consultation: Endovascular cardiology Ordering Provider: ANDREA ALVARADO Objective Vital Signs Date Time Temp Pulse Resp B/P Pulse Ox O2 Delivery O2 Flow Rate FiO2 12/20/16 13:38 73 12/20/16 11:28 98.0 16 116/69 99 12/20/16 10:32 Nasal Cannula 2.0 Intake and Output 12/19/16 12/19/16 12/20/16 15:00 23:00 07:00 Intake Total 600 ml 920 ml 400 ml Output Total 2300 ml Balance -1700 ml 920 ml 400 ml Results/Medications Result Diagram: 12/20/16 0710 12/20/16 0710 Results 24 hrs Laboratory Tests Test 12/20/16 07:10 White Blood Count 14.5 H Red Blood Count 3.18 L Hemoglobin 9.3 #L Hematocrit 28.4 #L Mean Corpuscular Volume 89.3 Mean Corpuscular Hemoglobin 29.2 Mean Corpuscular Hemoglobin Concent 32.7 Red Cell Distribution Width 17.8 H Platelet Count 420 H Mean Platelet Volume 9.9 Neutrophils % 84.8 H Lymphocytes % 4.9 L Monocytes % 7.4 Eosinophils % 1.2 Basophils % 0.3 Nucleated Red Blood Cells % 0.0 Neutrophils # 12.3 H Lymphocytes # 0.7 L Monocytes # 1.1 H Eosinophils # 0.2 Basophils # 0.1 Nucleated Red Blood Cells # 0.0 Sodium Level 134 L Potassium Level 5.8 H Chloride Level 98 Carbon Dioxide Level 25 Anion Gap 17 H Blood Urea Nitrogen 36 H Creatinine 4.34 H Glucose Level 110 Calcium Level 8.9 Medications Current Medications Amiodarone HCl (Cordarone) 200 mg DAILY PO Last administered on 12/20/16 08:47 ; Admin Dose 200 MG; Start 12/17/16 at 09:00 Apixaban (Eliquis) 5 mg BID PO Last administered on 12/20/16 08:47; Admin Dose 5 MG; Start 12/16/16 at 21:00 Aspirin (Halfprin) 81 mg DAILY PO Last administered on 12/20/16 08:48; Admin Dose 81 MG; Start 12/17/16 at 09:00 Atorvastatin Calcium (Lipitor) 20 mg QHS PO Last administered on 12/19/16 21:42 ; Admin Dose 20 MG; Start 12/16/16 at 21:00 Lactulose (Enulose) 20 gm HS PO Last administered on 12/19/16 21:45; Admin Dose 20 GM; Start 12/16/16 at 21:00 Lisinopril (Zestril) 20 mg DAILY PO Last administered on 12/20/16 08:47; Admin Dose 20 MG; Start 12/17/16 at 09:00 Loratadine (Claritin) 10 mg DAILY PO Last administered on 12/20/16 08:48; Admin Dose 10 MG; Start 12/17/16 at 09:00 Zolpidem Tartrate (Ambien) 5 mg HS PRN PO INSOMNIA; Start 12/16/16 at 18:00 Escitalopram Oxalate (Lexapro) 5 mg DAILY PO Last administered on 12/20/16 08: 47; Admin Dose 5 MG; Start 12/17/16 at 09:00 Ondansetron HCl (Zofran Inj) 4 mg Q6H PRN IV NAUSEA AND/OR VOMITING; Start 12/16 at 16:30 Pantoprazole (Protonix Tab) 40 mg DAILY@06 PO Last administered on 12/20/16 06: 14; Admin Dose 40 MG; Start 12/17/16 at 06:00 Acetaminophen (Tylenol Tab) 650 mg Q6H PRN PO PAIN AND OR ELEVATED TEMP Last administered on 12/18/16 15:22; Admin Dose 650 MG; Start 12/16/16 at 16:30 Sodium Hypochlorite 1 applic 1 applic BID IRR Last administered on 12/20/16 08: 48; Admin Dose 1 APPLIC; Start 12/17/16 at 09:00 Meropenem (Merrem 500 Mg/ 100 ml (Pmx)) 100 ml @ 200 mls/hr DAILY IVPB Last administered on 12/20/16 08:48; Admin Dose 200 MLS/HR; Start 12/17/16 at 12:30 Morphine Sulfate (morphine) 2 mg Q4H PRN IM SEVERE PAIN LEVEL 7-10; Start at 19:00 Acetaminophen/ Hydrocodone Bitart ([place] (7.5-325)) 1 tab Q6H PRN PO MODERATE PAIN LEVEL 4-6 Last administered on 12/20/16t 06:14; Admin Dose 1 TAB; Start 12/18 at 19:00 Miscellaneous Information (*Rx Drug Level Order Reminder*) 1 ONCE ONCE XX ; Start 12/21/16 at 05:00; Stop 12/21/16 at 05:01 Assessment/Plan Chief Complaint/Hosp Course Patient is 71 year old Male with PMH of HTn, HlD< CAD , ESRD on HD who came in from HD to here due to low BP. pt has nonhealing foot ulcer in lateral aspect of left heel likely PT/Peroneal territory with failed skin graft. I was consulted for possible PAD revascularization with possible pedal loop revasculariztion in the setting of non healing wound. Problems: Additional Assessment/Plan patient with below knee microvascualr disease which may need pedal loop reconstruction endovascularly. will I will plan later. Pt still needs 6 weeks ABx once the regiment is finalized by ID and if its can not be given with HD then I will call Dr galloway to put mid line to have abx for 6 weeks given. otherwise pt will get abx during HD d./w daughter and family plan for endovascualr treatment later STEFANIA VAUGHN MD December 20, 2016 14:55
--- NOTE | 2016-12-20 15:58 | CONS ---
Date/Time of Note Date/Time of Note DATE: 12/20/16 TIME: 15:56 Assessment/Plan Assessment/Plan Chief Complaint/Hosp Course - sepsis due to infected wound of L heel - diabetic infection of L foot (heel), soft tissue damage s/p excisional debridement 12/18/2016 - ESRD on HD via AVF in LUE - DM - HTN associated with DM - CAD and CHF - A fib - COPD and asthma - hypothyroidism - anemia - liver cirrhosis per EMR - elevated alk phos, source can be either the biliary tract or bone Recommendations: - IV Vanco with HD x 6 weeks - Po Levaquin x 6 weeks. - probiotics - outpatient f/u with me next week. Problems: Consultation Date/Type/Reason Admit Date/Time December 18, 2016 at 09:46 Initial Consult Date 12/17/16 Type of Consultation: id Referring Provider: ANDREA ALVARADO 24 HR Interval Summary Free Text/Dictation tolerating abx. Exam/Review of Systems Vital Signs Vitals Vital Signs Date Time Temp Pulse Resp B/P Pulse Ox O2 Delivery O2 Flow Rate FiO2 12/20/16 15:35 98.2 69 16 116/64 99 12/20/16 10:32 Nasal Cannula 2.0 Intake and Output 12/19/16 12/19/16 12/20/16 15:00 23:00 07:00 Intake Total 600 ml 920 ml 400 ml Output Total 2300 ml Balance -1700 ml 920 ml 400 ml Exam Constitutional: alert, oriented, well developed Psych: nl mood/affect, no complaints Head: atraumatic, normocephalic ENMT: nl external ears & nose, nl lips & teeth, nl nasal mucosa & septum Respiratory: clear to auscultation, normal air movement Cardiovascular: nl pulses, regular rate and rhythm, No S3, No S4, No bruits, No diastolic murmur, No edema, No gallop, No irregular rhythm, No jugular venous distention (JVD), No murmurs/extra sounds, No other, No rub, No systolic murmur Results Result Diagram: 12/20/16 0710 12/20/16 0710 Results 24 hrs Laboratory Tests Test 12/20/16 07:10 White Blood Count 14.5 H Red Blood Count 3.18 L Hemoglobin 9.3 #L Hematocrit 28.4 #L Mean Corpuscular Volume 89.3 Mean Corpuscular Hemoglobin 29.2 Mean Corpuscular Hemoglobin Concent 32.7 Red Cell Distribution Width 17.8 H Platelet Count 420 H Mean Platelet Volume 9.9 Neutrophils % 84.8 H Lymphocytes % 4.9 L Monocytes % 7.4 Eosinophils % 1.2 Basophils % 0.3 Nucleated Red Blood Cells % 0.0 Neutrophils # 12.3 H Lymphocytes # 0.7 L Monocytes # 1.1 H Eosinophils # 0.2 Basophils # 0.1 Nucleated Red Blood Cells # 0.0 Sodium Level 134 L Potassium Level 5.8 H Chloride Level 98 Carbon Dioxide Level 25 Anion Gap 17 H Blood Urea Nitrogen 36 H Creatinine 4.34 H Glucose Level 110 Calcium Level 8.9 Medications Medications Current Medications Amiodarone HCl (Cordarone) 200 mg DAILY PO Last administered on 12/20/16 08:47 ; Admin Dose 200 MG; Start 12/17/16 at 09:00 Apixaban (Eliquis) 5 mg BID PO Last administered on 12/20/16 08:47; Admin Dose 5 MG; Start 12/16/16 at 21:00 Aspirin (Halfprin) 81 mg DAILY PO Last administered on 12/20/16 08:48; Admin Dose 81 MG; Start 12/17/16 at 09:00 Atorvastatin Calcium (Lipitor) 20 mg QHS PO Last administered on 12/19/16 21:42 ; Admin Dose 20 MG; Start 12/16/16 at 21:00 Lactulose (Enulose) 20 gm HS PO Last administered on 12/19/16 21:45; Admin Dose 20 GM; Start 12/16/16 at 21:00 Lisinopril (Zestril) 20 mg DAILY PO Last administered on 12/20/16 08:47; Admin Dose 20 MG; Start 12/17/16 at 09:00 Loratadine (Claritin) 10 mg DAILY PO Last administered on 12/20/16 08:48; Admin Dose 10 MG; Start 12/17/16 at 09:00 Zolpidem Tartrate (Ambien) 5 mg HS PRN PO INSOMNIA; Start 12/16/16 at 18:00 Escitalopram Oxalate (Lexapro) 5 mg DAILY PO Last administered on 12/20/16 08: 47; Admin Dose 5 MG; Start 12/17/16 at 09:00 Ondansetron HCl (Zofran Inj) 4 mg Q6H PRN IV NAUSEA AND/OR VOMITING; Start 12/16 at 16:30 Pantoprazole (Protonix Tab) 40 mg DAILY@06 PO Last administered on 12/20/16 06: 14; Admin Dose 40 MG; Start 12/17/16 at 06:00 Acetaminophen (Tylenol Tab) 650 mg Q6H PRN PO PAIN AND OR ELEVATED TEMP Last administered on 12/18/16 15:22; Admin Dose 650 MG; Start 12/16/16 at 16:30 Sodium Hypochlorite (Dakin'S (Dilute 1/40%)) 1 applic BID IRR Last administered on 12/20/16 08:48; Admin Dose 1 APPLIC; Start 12/17/16 at 09:00 Morphine Sulfate (morphine) 2 mg Q4H PRN IM SEVERE PAIN LEVEL 7-10; Start at 19:00 Acetaminophen/ Hydrocodone Bitart ([place] (7.5-325)) 1 tab Q6H PRN PO MODERATE PAIN LEVEL 4-6 Last administered on 12/20/16 06:14; Admin Dose 1 TAB; Start 12/18 at 19:00 Miscellaneous Information (*Rx Drug Level Order Reminder*) 1 ONCE ONCE XX ; Start 12/21/16 at 05:00; Stop 12/21/16 at 05:01 Levofloxacin (Levaquin) 500 mg Q48H PO ; Start 12/20/16 at 16:00; Status UNMADELINE KUHN MD December 20, 2016 15:58
[2016-12-20] MEDS ORDERED: LEVOFLOXACIN 500 MG TAB PO SCH (16:00)
[2016-12-20] MEDS ORDERED: NA POLYST SULFON 15 GM/60 ML BTL PO ONE (17:30)
[2016-12-20 20:38] LABS: CREATININE 5.24 mg/dl (0.61-1.24)
[2016-12-20 20:39] LABS: CALCIUM 8.7 mg/dl (8.4-10.2)
[2016-12-20] MEDS: ATORVASTATIN 20 MG TAB PO SCH (20:55)
[2016-12-20] MEDS: LACTULOSE 30ML CUP PO SCH (20:55)
--- NOTE | 2016-12-20 21:11 | CONS ---
Date/Time of Note Date/Time of Note DATE: 12/20/16 TIME: 21:09 Assessment/Plan Assessment/Plan Chief Complaint/Hosp Course IMPRESSION: 1. sepsis 2. Leukocytosis, possible sepsis. 3. End-stage renal disease. 4. Hypertension. 5. Chronic obstructive pulmonary disease. 6. Atrial fibrillation. 7. Anemia. 8. Elevated BNP. 9 foot wound 10 hyperkalemia plan hd AM kayexalate prn Problems: Consultation Date/Type/Reason Admit Date/Time December 18, 2016 at 09:46 Type of Consultation: renal Referring Provider: ANDREA ALVARADO 24 HR Interval Summary Constitutional: no complaints Exam/Review of Systems Vital Signs Vitals Vital Signs Date Time Temp Pulse Resp B/P Pulse Ox O2 Delivery O2 Flow Rate FiO2 12/20/16 20:31 72 12/20/16 18:21 2.0 12/20/16 15:35 98.2 16 116/64 99 12/20/16 10:32 Nasal Cannula Intake and Output 12/19/16 12/19/16 12/20/16 14:59 22:59 06:59 Intake Total 600 ml 920 ml 400 ml Output Total 2300 ml Balance -1700 ml 920 ml 400 ml Exam Respiratory: clear to auscultation Cardiovascular: regular rate and rhythm Gastrointestinal: bowel sounds (+), soft Extremities: No edema Results Result Diagram: 12/20/1670912/20/162014 Results 24 hrs Laboratory Tests Test 12/20/16 07:10 12/20/16 20:15 White Blood Count 14.5 H Red Blood Count 3.18 L Hemoglobin 9.3 #L Hematocrit 28.4 #L Mean Corpuscular Volume 89.3 Mean Corpuscular Hemoglobin 29.2 Mean Corpuscular Hemoglobin Concent 32.7 Red Cell Distribution Width 17.8 H Platelet Count 420 H Mean Platelet Volume 9.9 Neutrophils % 84.8 H Lymphocytes % 4.9 L Monocytes % 7.4 Eosinophils % 1.2 Basophils % 0.3 Nucleated Red Blood Cells % 0.0 Neutrophils # 12.3 H Lymphocytes # 0.7 L Monocytes # 1.1 H Eosinophils # 0.2 Basophils # 0.1 Nucleated Red Blood Cells # 0.0 Sodium Level 134 L 135 Potassium Level 5.8 H 5.0 Chloride Level 98 93 L Carbon Dioxide Level 25 29 Anion Gap 17 H 18 H Blood Urea Nitrogen 36 H 40 H Creatinine 4.34 H 5.24 H Glucose Level 110 144 Calcium Level 8.9 8.7 Medications Medications Current Medications Amiodarone HCl (Cordarone) 200 mg DAILY PO Last administered on 12/20/16 08:47 ; Admin Dose 200 MG; Start 12/17/16 at 09:00 Apixaban (Eliquis) 5 mg BID PO Last administered on 12/20/16 20:55; Admin Dose 5 MG; Start 12/16/16 at 21:00 Aspirin (Halfprin) 81 mg DAILY PO Last administered on 12/20/16 08:48; Admin Dose 81 MG; Start 12/17/16 at 09:00 Atorvastatin Calcium (Lipitor) 20 mg QHS PO Last administered on 12/20/16 20:55 ; Admin Dose 20 MG; Start 12/16/16 at 21:00 Lactulose (Enulose) 20 gm HS PO Last administered on 12/20/16 20:55; Admin Dose 20 GM; Start 12/16/16 at 21:00 Lisinopril (Zestril) 20 mg DAILY PO Last administered on 12/20/16 08:47; Admin Dose 20 MG; Start 12/17/16 at 09:00 Loratadine (Claritin) 10 mg DAILY PO Last administered on 12/20/16 08:48; Admin Dose 10 MG; Start 12/17/16 at 09:00 Zolpidem Tartrate (Ambien) 5 mg HS PRN PO INSOMNIA; Start 12/16/16 at 18:00 Escitalopram Oxalate (Lexapro) 5 mg DAILY PO Last administered on 12/20/16 08: 47; Admin Dose 5 MG; Start 12/17/16 at 09:00 Ondansetron HCl (Zofran Inj) 4 mg Q6H PRN IV NAUSEA AND/OR VOMITING; Start 12/16 at 16:30 Pantoprazole (Protonix Tab) 40 mg DAILY@06 PO Last administered on 12/20/16 06: 14; Admin Dose 40 MG; Start 12/17/16 at 06:00 Acetaminophen (Tylenol Tab) 650 mg Q6H PRN PO PAIN AND OR ELEVATED TEMP Last administered on 12/18/16 15:22; Admin Dose 650 MG; Start 12/16/16 at 16:30 Sodium Hypochlorite (Dakin'S (Dilute 1/40%)) 1 applic BID IRR Last administered on 12/20/16 20:55; Admin Dose 1 APPLIC; Start 12/17/16 at 09:00 Morphine Sulfate (morphine) 2 mg Q4H PRN IM SEVERE PAIN LEVEL 7-10; Start at 19:00 Acetaminophen/ Hydrocodone Bitart ([place] (7.5-325)) 1 tab Q6H PRN PO MODERATE PAIN LEVEL 4-6 Last administered on 12/20/16 06:14; Admin Dose 1 TAB; Start 12/18 at 19:00 Miscellaneous Information (*Rx Drug Level Order Reminder*) 1 ONCE ONCE XX ; Start 12/21/16 at 05:00; Stop 12/21/16 at 05:01 Levofloxacin (Levaquin) 500 mg Q48H PO Last administered on 12/20/16 16:28; Admin Dose 500 MG; Start 12/20/16 at 16:00 MAGUI PINEDA MD December 20, 2016 21:11
[2016-12-21] VITALS (20 sets, daily range): BP systolic 105–135; BP diastolic 59–74; PULSE 69–98; RESP 16–20
[2016-12-21 05:48] LABS: ADD SCAN DIFF NO
[2016-12-21 05:53] LABS: BASOPHILS % 0.3 % (0.0-2.0); EOSINOPHILS # 0.2 10^3/ul (0.0-0.5); EOSINOPHILS % 1.2 % (0.0-7.0); HEMATOCRIT 27.7 % (42.0-52.0); HEMOGLOBIN 8.7 g/dl (14.0-18.0); LYMPHOCYTES # 0.8 10^3/ul (0.8-2.9); LYMPHOCYTES % 6.2 % (15.0-51.0); MEAN CORPUSCULAR HEMOGLOBIN 28.2 pg (29.0-33.0); MEAN CORPUSCULAR HGB CONC 31.4 g/dl (32.0-37.0); MEAN CORPUSCULAR VOLUME 89.9 fl (82.0-101.0); MONOCYTE # 1.2 10^3/ul (0.3-0.9); MONOCYTES % 9.3 % (0.0-11.0); NEUTROPHIL # 10.6 10^3/ul (1.6-7.5); NEUTROPHILS % 82.4 % (39.0-77.0); PLATELET COUNT 389 10^3/UL (140-415); RED BLOOD COUNT 3.08 10^6/ul (4.70-6.10); RED CELL DISTRIBUTION WIDTH 17.7 % (11.5-14.5); WHITE BLOOD COUNT 12.9 10^3/ul (4.8-10.8)
[2016-12-21 06:09] LABS: CREATININE 5.54 mg/dl (0.61-1.24)
[2016-12-21 06:10] LABS: CALCIUM 8.8 mg/dl (8.4-10.2)
[2016-12-21] MEDS: LEVOTHYROXINE 100 MCG TAB PO SCH (06:24)
[2016-12-21] MEDS: PANTOPRAZOLE (EC) 40 MG TAB PO SCH (06:24)
[2016-12-21] MEDS: ESCITALOPRAM 10 MG TAB PO SCH (08:22)
[2016-12-21] MEDS: CALCIUM ACETATE 667 MG CAP PO SCH ×3 (08:22→18:01)
[2016-12-21] MEDS: HYDROCODONE/APAP (7.5/325) TAB PO PRN (08:23)
[2016-12-21] MEDS: ASPIRIN (EC) 81 MG TAB PO SCH (08:23)
[2016-12-21] MEDS: LORATADINE 10 MG TAB PO SCH (08:24)
[2016-12-21] MEDS: APIXABAN 5 MG TABLET PO SCH ×2 (08:24→21:05)
[2016-12-21] MEDS: AMIODARONE 200 MG TAB PO SCH (08:25)
[2016-12-21] MEDS: LISINOPRIL 20 MG TAB PO SCH (08:25)
[2016-12-21] MEDS: SODIUM HYPOCHLORITE 1/40% 1L IRRIG IRR SCH ×2 (09:29→21:05)
--- NOTE | 2016-12-21 09:51 | PN ---
Date/Time of Note Date/Time of Note DATE: 12/21/16 TIME: 09:39 Assessment/Plan VTE Prophylaxis VTE Prophylaxis Intervention: other (Eliquis) Lines/Catheters IV C[facility]ter Type [facility]from [facility] Urinary Cath still in place: No Assessment/Plan Chief Complaint/Hosp Course ASSESSMENT AND PLAN: 71-year-old male sent in from dialysis center with hypotension with sepsis secondary to infected heel ulcer, now improving. 1. Sepsis, again secondary to infected heel ulcer. There was impending shock, now improved. The patient did have an excisional debridement performed of the left lateral foot ulceration POD # 3. - Continue to follow up recommendations from infectious disease team. - Continue broad spectrum antibiotics. Per their recommendations and per vascular surgery recommendations, the patient will need IV antibiotics for 6 weeks (PO Levaquin and IV Vanco - will have CM set these up). 2. Hypertension. Blood pressure stable. Continue current blood pressure medicines. 3. Hypothyroidism, stable. Continue current medications. 4. Chronic atrial fibrillation, presently rate controlled. The patient is on Eliquis as well. 5. End-stage renal disease on dialysis. Follow up renal recommendations for dialysis 6. Anemia - H/H improved now, s/p PRBC transfusion 2 days ago, most likely secondary to chronic kidney disease, anemia - monitor 7. 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 Continue to monitor for now. Follow up infectious disease recommendations. 8. Fluid overload secondary to incomplete dialysis again hemodialysis per renal recommendations. 9. DVT prophylaxis, he is on Eliquis. 10. GI ppx - PPI. (awaiting PT consult as well). Problems: Subjective 24 Hr Interval Summary Free Text/Dictation Pt had no acute events overnight. No present LLE bleeding complaints. Exam/Review of Systems Vital Signs Vitals Vital Signs Date Time Temp Pulse Resp B/P Pulse Ox O2 Delivery O2 Flow Rate FiO2 12/21/16 08:22 98 12/21/16 07:51 97.7 18 119/73 96 12/21/16 02:42 2.0 12/20/16 21:00 Nasal Cannula Intake and Output 12/20/16 12/20/16 12/21/16 15:00 23:00 07:00 Intake Total 640 ml 420 ml Balance 640 ml 420 ml Exam GENERAL: The patient is lying in bed, no acute distress. HEENT: Pupils equal, round, react to light. Extraocular muscles intact. NECK: Supple, no thyromegaly. LUNGS: Slightly decreased breath sounds bilaterally. CARDIOVASCULAR: Irregularly irregular heart sounds. No rubs or gallops. ABDOMEN: slightly firmer, nontender, nondistended. Normal bowel sounds. MUSCULOSKELETAL: Stage IV ulcer on the heel and ankle of left lower extremity, bandaged, although has no lower extremity edema bilaterally. NEUROLOGIC: No focal deficits. Results Result Diagram: 12/21/16 0510 12/21/16 0510 Results 24 hrs Laboratory Tests Test 12/20/16 20:15 12/21/16 05:10 Sodium Level 135 137 Potassium Level 5.0 5.0 Chloride Level 93 L 92 L Carbon Dioxide Level 29 30 Anion Gap 18 H 20 H Blood Urea Nitrogen 40 H 45 H Creatinine 5.24 H 5.54 H Glucose Level 144 91 # Calcium Level 8.7 8.8 White Blood Count 12.9 H Red Blood Count 3.08 L Hemoglobin 8.7 L Hematocrit 27.7 L Mean Corpuscular Volume 89.9 Mean Corpuscular Hemoglobin 28.2 L Mean Corpuscular Hemoglobin Concent 31.4 L Red Cell Distribution Width 17.7 H Platelet Count 389 Mean Platelet Volume 10.0 Neutrophils % 82.4 H Lymphocytes % 6.2 L Monocytes % 9.3 Eosinophils % 1.2 Basophils % 0.3 Nucleated Red Blood Cells % 0.0 Neutrophils # 10.6 H Lymphocytes # 0.8 Monocytes # 1.2 H Eosinophils # 0.2 Basophils # 0.0 Nucleated Red Blood Cells # 0.0 Random Vancomycin Level 18.5 Medications Medications Current Medications Amiodarone HCl (Cordarone) 200 mg DAILY PO Last administered on 12/20/16 08:47 ; Admin Dose 200 MG; Start 12/17/16 at 09:00 Apixaban (Eliquis) 5 mg BID PO Last administered on 12/21/16 08:24; Admin Dose 5 MG; Start 12/16/16 at 21:00 Aspirin (Halfprin) 81 mg DAILY PO Last administered on 12/21/16 08:23; Admin Dose 81 MG; Start 12/17/16 at 09:00 Atorvastatin Calcium (Lipitor) 20 mg QHS PO Last administered on 12/20/16 20:55 ; Admin Dose 20 MG; Start 12/16/16 at 21:00 Lactulose (Enulose) 20 gm HS PO Last administered on 12/20/16 20:55; Admin Dose 20 GM; Start 12/16/16 at 21:00 Lisinopril (Zestril) 20 mg DAILY PO Last administered on 12/20/16 08:47; Admin Dose 20 MG; Start 12/17/16 at 09:00 Loratadine (Claritin) 10 mg DAILY PO Last administered on 12/21/16 08:24; Admin Dose 10 MG; Start 12/17/16 at 09:00 Zolpidem Tartrate (Ambien) 5 mg HS PRN PO INSOMNIA; Start 12/16/16 at 18:00 Escitalopram Oxalate (Lexapro) 5 mg DAILY PO Last administered on 12/21/16 08: 22; Admin Dose 5 MG; Start 12/17/16 at 09:00 Ondansetron HCl (Zofran Inj) 4 mg Q6H PRN IV NAUSEA AND/OR VOMITING; Start 12/16 at 16:30 Pantoprazole (Protonix Tab) 40 mg DAILY@06 PO Last administered on 12/21/16 06 :24; Admin Dose 40 MG; Start 12/17/16 at 06:00 Acetaminophen (Tylenol Tab) 650 mg Q6H PRN PO PAIN AND OR ELEVATED TEMP Last administered on 12/18/16 15:22; Admin Dose 650 MG; Start 12/16/16 at 16:30 Sodium Hypochlorite (Dakin'S (Dilute 1/40%)) 1 applic BID IRR Last administered on 12/21/16 09:29; Admin Dose 1 APPLIC; Start 12/17/16 at 09:00 Morphine Sulfate (morphine) 2 mg Q4H PRN IM SEVERE PAIN LEVEL 7-10; Start at 19:00 Acetaminophen/ Hydrocodone Bitart ([place] (7.5-325)) 1 tab Q6H PRN PO MODERATE PAIN LEVEL 4-6 Last administered on 12/21/16 08:23; Admin Dose 1 TAB; Start 12/18/16 at 19:00 Levofloxacin (Levaquin) 500 mg Q48H PO Last administered on 12/20/16 16:28; Admin Dose 500 MG; Start 12/20/16 at 16:00 Docusate Sodium (Colace) 100 mg BID PO ; Start 12/21/16 at 10:00; Status UNV Senna (Senokot) 1 tab BID PO ; Start 12/21/16 at 10:00; Status PITERV CHRISTEN GUERRA December 21, 2016 09:49
[2016-12-21] MEDS: DOCUSATE SODIUM 100 MG CAP PO SCH ×2 (14:31→21:05)
[2016-12-21] MEDS: SENNA TAB PO SCH ×2 (14:31→21:05)
--- NOTE | 2016-12-21 15:08 | CONS ---
Date/Time of Note Date/Time of Note DATE: 12/21/16 TIME: 15:07 Assessment/Plan Assessment/Plan Chief Complaint/Hosp Course - sepsis due to infected wound of L heel - diabetic infection of L foot (heel), soft tissue damage s/p excisional debridement 12/18/2016 - ESRD on HD via AVF in LUE - DM - HTN associated with DM - CAD and CHF - A fib - COPD and asthma - hypothyroidism - anemia - liver cirrhosis per EMR - elevated alk phos, source can be either the biliary tract or bone Recommendations: - IV Vanco with HD x 6 weeks - cont. Po Levaquin x 6 weeks. - probiotics - outpatient f/u with me next week. Problems: Consultation Date/Type/Reason Admit Date/Time December 18, 2016 at 09:46 Initial Consult Date 12/17/16 Type of Consultation: id Referring Provider: ANDREA ALVARADO Exam/Review of Systems Vital Signs Vitals Vital Signs Date Time Temp Pulse Resp B/P Pulse Ox O2 Delivery O2 Flow Rate FiO2 12/21/16 14:30 89 18 12/21/16 11:32 98.1 105/62 97 12/21/16 08:00 Nasal Cannula 2.0 Intake and Output 12/20/16 12/20/16 12/21/16 15:00 23:00 07:00 Intake Total 640 ml 420 ml Balance 640 ml 420 ml Exam Constitutional: alert, oriented, well developed Psych: nl mood/affect, no complaints Head: atraumatic, normocephalic Eyes: EOMI, PERRL, nl conjunctiva, nl lids, nl sclera Respiratory: clear to auscultation, normal air movement Cardiovascular: nl pulses, regular rate and rhythm Gastrointestinal: nl liver, spleen, non-tender, soft Musculoskeletal: nl extremities to inspection, nl gait and stance Neurological: DROP WIRE ALIGNER II-XII intact, nl mental status, nl speech, nl strength Results Result Diagram: 12/21/1650912/21/16509 Results 24 hrs Laboratory Tests Test 12/20/16 20:15 12/21/16 05:10 Sodium Level 135 137 Potassium Level 5.0 5.0 Chloride Level 93 L 92 L Carbon Dioxide Level 29 30 Anion Gap 18 H 20 H Blood Urea Nitrogen 40 H 45 H Creatinine 5.24 H 5.54 H Glucose Level 144 91 # Calcium Level 8.7 8.8 White Blood Count 12.9 H Red Blood Count 3.08 L Hemoglobin 8.7 L Hematocrit 27.7 L Mean Corpuscular Volume 89.9 Mean Corpuscular Hemoglobin 28.2 L Mean Corpuscular Hemoglobin Concent 31.4 L Red Cell Distribution Width 17.7 H Platelet Count 389 Mean Platelet Volume 10.0 Neutrophils % 82.4 H Lymphocytes % 6.2 L Monocytes % 9.3 Eosinophils % 1.2 Basophils % 0.3 Nucleated Red Blood Cells % 0.0 Neutrophils # 10.6 H Lymphocytes # 0.8 Monocytes # 1.2 H Eosinophils # 0.2 Basophils # 0.0 Nucleated Red Blood Cells # 0.0 Random Vancomycin Level 18.5 Medications Medications Current Medications Amiodarone HCl (Cordarone) 200 mg DAILY PO Last administered on 12/20/16 08:47 ; Admin Dose 200 MG; Start 12/17/16 at 09:00 Apixaban (Eliquis) 5 mg BID PO Last administered on 12/21/16 08:24; Admin Dose 5 MG; Start 12/16/16 at 21:00 Aspirin (Halfprin) 81 mg DAILY PO Last administered on 12/21/16 08:23; Admin Dose 81 MG; Start 12/17/16 at 09:00 Atorvastatin Calcium (Lipitor) 20 mg QHS PO Last administered on 12/20/16 20:55 ; Admin Dose 20 MG; Start 12/16/16 at 21:00 Lactulose (Enulose) 20 gm HS PO Last administered on 12/20/16 20:55; Admin Dose 20 GM; Start 12/16/16 at 21:00 Lisinopril (Zestril) 20 mg DAILY PO Last administered on 12/20/16 08:47; Admin Dose 20 MG; Start 12/17/16 at 09:00 Loratadine (Claritin) 10 mg DAILY PO Last administered on 12/21/16 08:24; Admin Dose 10 MG; Start 12/17/16 at 09:00 Zolpidem Tartrate (Ambien) 5 mg HS PRN PO INSOMNIA; Start 12/16/16 at 18:00 Escitalopram Oxalate (Lexapro) 5 mg DAILY PO Last administered on 12/21/16 08: 22; Admin Dose 5 MG; Start 12/17/16 at 09:00 Ondansetron HCl (Zofran Inj) 4 mg Q6H PRN IV NAUSEA AND/OR VOMITING; Start 12/16 at 16:30 Pantoprazole (Protonix Tab) 40 mg DAILY@06 PO Last administered on 12/21/16 06 :24; Admin Dose 40 MG; Start 12/17/16 at 06:00 Acetaminophen (Tylenol Tab) 650 mg Q6H PRN PO PAIN AND OR ELEVATED TEMP Last administered on 12/18/16 15:22; Admin Dose 650 MG; Start 12/16/16 at 16:30 Sodium Hypochlorite (Dakin'S (Dilute 1/40%)) 1 applic BID IRR Last administered on 12/21/16 09:29; Admin Dose 1 APPLIC; Start 12/17/16 at 09:00 Morphine Sulfate (morphine) 2 mg Q4H PRN IM SEVERE PAIN LEVEL 7-10; Start at 19:00 Acetaminophen/ Hydrocodone Bitart ([place] (7.5-325)) 1 tab Q6H PRN PO MODERATE PAIN LEVEL 4-6 Last administered on 12/21/16 08:23; Admin Dose 1 TAB; Start 12/18/16 at 19:00 Levofloxacin (Levaquin) 500 mg Q48H PO Last administered on 12/20/16 16:28; Admin Dose 500 MG; Start 12/20/16 at 16:00 Docusate Sodium (Colace) 100 mg BID PO Last administered on 12/21/16 14:31; Admin Dose 100 MG; Start 12/21/16 at 10:00 Senna (Senokot) 1 tab BID PO Last administered on 12/21/16 14:31; Admin Dose 1 TAB; Start 12/21/16 at 10:00 MADELINE JOHANSEN MD December 21, 2016 15:08
--- NOTE | 2016-12-21 19:00 | CONS ---
Date/Time of Note Date/Time of Note DATE: 12/21/16 TIME: 18:58 Consult Date/Type/Reason Admit Date/Time December 18, 2016 at 09:46 Initial Consult Date 12/17/16 Type of Consultation: Endovascular Cardiology Ordering Provider: ANDREA ALVARADO Objective Vital Signs Date Time Temp Pulse Resp B/P Pulse Ox O2 Delivery O2 Flow Rate FiO2 12/21/16 16:17 94 12/21/16 15:27 97.2 17 135/73 93 12/21/16 08:00 Nasal Cannula 2.0 Intake and Output 12/20/16 12/20/16 12/21/16 15:00 23:00 07:00 Intake Total 640 ml 420 ml Balance 640 ml 420 ml Results/Medications Result Diagram: 12/21/16 0510 12/21/16 0510 Results 24 hrs Laboratory Tests Test 12/20/16 20:15 12/21/16 05:10 Sodium Level 135 137 Potassium Level 5.0 5.0 Chloride Level 93 L 92 L Carbon Dioxide Level 29 30 Anion Gap 18 H 20 H Blood Urea Nitrogen 40 H 45 H Creatinine 5.24 H 5.54 H Glucose Level 144 91 # Calcium Level 8.7 8.8 White Blood Count 12.9 H Red Blood Count 3.08 L Hemoglobin 8.7 L Hematocrit 27.7 L Mean Corpuscular Volume 89.9 Mean Corpuscular Hemoglobin 28.2 L Mean Corpuscular Hemoglobin Concent 31.4 L Red Cell Distribution Width 17.7 H Platelet Count 389 Mean Platelet Volume 10.0 Neutrophils % 82.4 H Lymphocytes % 6.2 L Monocytes % 9.3 Eosinophils % 1.2 Basophils % 0.3 Nucleated Red Blood Cells % 0.0 Neutrophils # 10.6 H Lymphocytes # 0.8 Monocytes # 1.2 H Eosinophils # 0.2 Basophils # 0.0 Nucleated Red Blood Cells # 0.0 Random Vancomycin Level 18.5 Medications Current Medications Amiodarone HCl (Cordarone) 200 mg DAILY PO Last administered on 12/20/16 08:47 ; Admin Dose 200 MG; Start 12/17/16 at 09:00 Apixaban (Eliquis) 5 mg BID PO Last administered on 12/21/16 08:24; Admin Dose 5 MG; Start 12/16/16 at 21:00 Aspirin (Halfprin) 81 mg DAILY PO Last administered on 12/21/16 08:23; Admin Dose 81 MG; Start 12/17/16 at 09:00 Atorvastatin Calcium (Lipitor) 20 mg QHS PO Last administered on 12/20/16 20:55 ; Admin Dose 20 MG; Start 12/16/16 at 21:00 Lactulose (Enulose) 20 gm HS PO Last administered on 12/20/16 20:55; Admin Dose 20 GM; Start 12/16/16 at 21:00 Lisinopril (Zestril) 20 mg DAILY PO Last administered on 12/20/16 08:47; Admin Dose 20 MG; Start 12/17/16 at 09:00 Loratadine (Claritin) 10 mg DAILY PO Last administered on 12/21/16 08:24; Admin Dose 10 MG; Start 12/17/16 at 09:00 Zolpidem Tartrate (Ambien) 5 mg HS PRN PO INSOMNIA; Start 12/16/16 at 18:00 Escitalopram Oxalate (Lexapro) 5 mg DAILY PO Last administered on 12/21/16 08: 22; Admin Dose 5 MG; Start 12/17/16 at 09:00 Ondansetron HCl (Zofran Inj) 4 mg Q6H PRN IV NAUSEA AND/OR VOMITING; Start 12/16 at 16:30 Pantoprazole (Protonix Tab) 40 mg DAILY@06 PO Last administered on 12/21/16 06 :24; Admin Dose 40 MG; Start 12/17/16 at 06:00 Acetaminophen (Tylenol Tab) 650 mg Q6H PRN PO PAIN AND OR ELEVATED TEMP Last administered on 12/18/16 15:22; Admin Dose 650 MG; Start 12/16/16 at 16:30 Sodium Hypochlorite (Dakin'S (Dilute 1/40%)) 1 applic BID IRR Last administered on 12/21/16 09:29; Admin Dose 1 APPLIC; Start 12/17/16 at 09:00 Morphine Sulfate (morphine) 2 mg Q4H PRN IM SEVERE PAIN LEVEL 7-10; Start at 19:00 Acetaminophen/ Hydrocodone Bitart ([place] (7.5-325)) 1 tab Q6H PRN PO MODERATE PAIN LEVEL 4-6 Last administered on 12/21/16 08:23; Admin Dose 1 TAB; Start 12/18/16 at 19:00 Levofloxacin (Levaquin) 500 mg Q48H PO Last administered on 12/20/16 16:28; Admin Dose 500 MG; Start 12/20/16 at 16:00 Docusate Sodium (Colace) 100 mg BID PO Last administered on 12/21/16 14:31; Admin Dose 100 MG; Start 12/21/16 at 10:00 Senna 1 tab 1 tab BID PO Last administered on 12/21/16 14:31; Admin Dose 1 TAB ; Start 12/21/16 at 10:00 Vancomycin HCl/ Sodium Chloride (Vancocin/NS) 150 ml @ 75 mls/hr Q96H IVPB ; Start 12/21/16 at 21:00 Assessment/Plan Chief Complaint/Hosp Course Patient is 71 year old Male with PMH of HTn, HlD< CAD , ESRD on HD who came in from HD to here due to low BP. pt has nonhealing foot ulcer in lateral aspect of left heel likely PT/Peroneal territory with failed skin graft. I was consulted for possible PAD revascularization with possible pedal loop revasculariztion in the setting of non healing wound. Problems: Additional Assessment/Plan Patient is stable on Abx 6 weeks Abx regiment with HD plan for d/c and out pt angio with me will schedule it make sure pt has pt from [place] to f.u will need revasc while getting abx to get maximum chances to heal the wound. STEFANIA VAUGHN MD December 21, 2016 19:00
[2016-12-21] MEDS ORDERED: VANCOMYCIN 750 MG in SOD CHLORIDE 0.9% 150 ML IVPB SCH (21:00)
[2016-12-21] MEDS: ATORVASTATIN 20 MG TAB PO SCH (21:05)
[2016-12-21] MEDS: LACTULOSE 30ML CUP PO SCH (21:05)
[2016-12-21] MEDS ORDERED: LORAZEPAM 2 MG INJ IV PRN (22:00)
--- NOTE | 2016-12-21 23:22 | CONS ---
DATE OF ADMISSION: 12/18/2016 DATE OF CONSULTATION: 12/21/2016 SUBJECTIVE FINDINGS: The patient is being followed for left heel ulceration, status post debridement and transfusion due to acute anemia. No acute complaints. OBJECTIVE FINDINGS: Temperature 97.2, pulse 85, respiratory rate 17, blood pressure 135/73, pulse oximetry is 73. Patient awake, alert, in no acute distress. No labored respiration. The patient with no active drainage. Left foot has an extensive ulceration 6 x 10 cm with exposed bone. No signs of active bleeding. Extremity is warm. Dystrophic nails. LABORATORIES: WBC 12.9, hemoglobin 8.7, hematocrit 27.7, platelets 389. Sodium 137, potassium 5, chloride 92, CO2 30, BUN 45, creatinine 5.54. ASSESSMENT: 1. Left foot diabetic foot ulceration. 2. Extensive tissue loss. 3. Cellulitis. 4. End-stage renal disease, on hemodialysis. 5. Diabetes type 2. 6. Coronary artery disease. 7. Atrial fibrillation. 8. Peripheral arterial disease. PLAN: Patient seen and evaluated and may require staged debridement. Patient on recommended 6 weeks of antibiotics with hemodialysis. Patient maybe a possible candidate for revascularization once infection has subsided. Appreciate ID recommendations. Coordination of care with nursing. Dictated By: DARYN GARDNER/BAKARI Conf#: [id number] DID#: [id number] MTDD
--- NOTE | 2016-12-21 23:48 | CONS ---
Date/Time of Note Date/Time of Note DATE: 12/21/16 TIME: 23:46 Assessment/Plan Assessment/Plan Chief Complaint/Hosp Course IMPRESSION: 1. sepsis 2. Leukocytosis, possible sepsis. 3. End-stage renal disease. 4. Hypertension. 5. Chronic obstructive pulmonary disease. 6. Atrial fibrillation. 7. Anemia. 8. Elevated BNP. 9 foot wound 10 hyperkalemia plan hd antibiotic per id Problems: Consultation Date/Type/Reason Admit Date/Time December 18, 2016 at 09:46 Type of Consultation: renal Referring Provider: ANDREA ALVARADO 24 HR Interval Summary Constitutional: no complaints Exam/Review of Systems Vital Signs Vitals Vital Signs Date Time Temp Pulse Resp B/P Pulse Ox O2 Delivery O2 Flow Rate FiO2 12/21/16 23:39 97.9 89 18 111/59 95 12/21/16 20:00 Nasal Cannula 2.0 Intake and Output 12/20/16 12/20/16 12/21/16 15:00 23:00 07:00 Intake Total 640 ml 420 ml Balance 640 ml 420 ml Exam Neck: supple Respiratory: clear to auscultation Cardiovascular: regular rate and rhythm Gastrointestinal: bowel sounds, soft Results Result Diagram: 12/21/16 0510 12/21/16 0510 Results 24 hrs Laboratory Tests Test 12/21/16 05:10 White Blood Count 12.9 H Red Blood Count 3.08 L Hemoglobin 8.7 L Hematocrit 27.7 L Mean Corpuscular Volume 89.9 Mean Corpuscular Hemoglobin 28.2 L Mean Corpuscular Hemoglobin Concent 31.4 L Red Cell Distribution Width 17.7 H Platelet Count 389 Mean Platelet Volume 10.0 Neutrophils % 82.4 H Lymphocytes % 6.2 L Monocytes % 9.3 Eosinophils % 1.2 Basophils % 0.3 Nucleated Red Blood Cells % 0.0 Neutrophils # 10.6 H Lymphocytes # 0.8 Monocytes # 1.2 H Eosinophils # 0.2 Basophils # 0.0 Nucleated Red Blood Cells # 0.0 Sodium Level 137 Potassium Level 5.0 Chloride Level 92 L Carbon Dioxide Level 30 Anion Gap 20 H Blood Urea Nitrogen 45 H Creatinine 5.54 H Glucose Level 91 # Calcium Level 8.8 Random Vancomycin Level 18.5 Medications Medications Current Medications Amiodarone HCl (Cordarone) 200 mg DAILY PO Last administered on 12/20/16t 08:47 ; Admin Dose 200 MG; Start 12/17/16 at 09:00 Apixaban (Eliquis) 5 mg BID PO Last administered on 12/21/16 21:05; Admin Dose 5 MG; Start 12/16/16 at 21:00 Aspirin (Halfprin) 81 mg DAILY PO Last administered on 12/21/16 08:23; Admin Dose 81 MG; Start 12/17/16 at 09:00 Atorvastatin Calcium (Lipitor) 20 mg QHS PO Last administered on 12/21/16 21: 05; Admin Dose 20 MG; Start 12/16/16 at 21:00 Lactulose (Enulose) 20 gm HS PO Last administered on 12/21/16 21:05; Admin Dose 20 GM; Start 12/16/16 at 21:00 Lisinopril (Zestril) 20 mg DAILY PO Last administered on 12/20/16 08:47; Admin Dose 20 MG; Start 12/17/16 at 09:00 Loratadine (Claritin) 10 mg DAILY PO Last administered on 12/21/16 08:24; Admin Dose 10 MG; Start 12/17/16 at 09:00 Zolpidem Tartrate (Ambien) 5 mg HS PRN PO INSOMNIA Last administered on 22:49; Admin Dose 5 MG; Start 12/16/16 at 18:00 Escitalopram Oxalate (Lexapro) 5 mg DAILY PO Last administered on 12/21/16 08: 22; Admin Dose 5 MG; Start 12/17/16 at 09:00 Ondansetron HCl (Zofran Inj) 4 mg Q6H PRN IV NAUSEA AND/OR VOMITING; Start 12/16 at 16:30 Pantoprazole (Protonix Tab) 40 mg DAILY@06 PO Last administered on 12/21/16 06 :24; Admin Dose 40 MG; Start 12/17/16 at 06:00 Acetaminophen (Tylenol Tab) 650 mg Q6H PRN PO PAIN AND OR ELEVATED TEMP Last administered on 12/18/16 15:22; Admin Dose 650 MG; Start 12/16/16 at 16:30 Sodium Hypochlorite (Dakin'S (Dilute 1/40%)) 1 applic BID IRR Last administered on 12/21/16 21:05; Admin Dose 1 APPLIC; Start 12/17/16 at 09:00 Morphine Sulfate (morphine) 2 mg Q4H PRN IM SEVERE PAIN LEVEL 7-10; Start at 19:00 Acetaminophen/ Hydrocodone Bitart ([place] (7.5-325)) 1 tab Q6H PRN PO MODERATE PAIN LEVEL 4-6 Last administered on 12/21/16 08:23; Admin Dose 1 TAB; Start 12/18/16 at 19:00 Levofloxacin (Levaquin) 500 mg Q48H PO Last administered on 12/20/16 16:28; Admin Dose 500 MG; Start 12/20/16 at 16:00 Docusate Sodium (Colace) 100 mg BID PO Last administered on 12/21/16 21:05; Admin Dose 100 MG; Start 12/21/16 at 10:00 Senna 1 tab 1 tab BID PO Last administered on 12/21/16 21:05; Admin Dose 1 TAB ; Start 12/21/16 at 10:00 Vancomycin HCl/ Sodium Chloride (Vancocin/NS) 150 ml @ 75 mls/hr Q96H IVPB Last administered on 12/21/16 21:05; Admin Dose 75 MLS/HR; Start 12/21/16 at 21 :00 Lorazepam (Ativan) 1 mg Q6H PRN IV ANXIETY; Start 12/21/16 at 22:00 MAGUI PINEDA MD December 21, 2016 23:48
[2016-12-22] VITALS (7 sets, daily range): BP systolic 119–137; BP diastolic 64–79; PULSE 70–88; RESP 18–20
[2016-12-22] MEDS: PANTOPRAZOLE (EC) 40 MG TAB PO SCH (06:06)
[2016-12-22 07:03] LABS: ADD SCAN DIFF NO
[2016-12-22 07:09] LABS: BASOPHIL # 0.1 10^3/ul (0.0-0.1); BASOPHILS % 0.4 % (0.0-2.0); EOSINOPHILS # 0.1 10^3/ul (0.0-0.5); HEMATOCRIT 27.6 % (42.0-52.0); HEMOGLOBIN 8.8 g/dl (14.0-18.0); LYMPHOCYTES # 0.7 10^3/ul (0.8-2.9); LYMPHOCYTES % 5.3 % (15.0-51.0); MEAN CORPUSCULAR HEMOGLOBIN 29.7 pg (29.0-33.0); MEAN CORPUSCULAR HGB CONC 31.9 g/dl (32.0-37.0); MEAN CORPUSCULAR VOLUME 93.2 fl (82.0-101.0); MEAN PLATELET VOLUME 9.9 fl (7.4-10.4); MONOCYTE # 1.2 10^3/ul (0.3-0.9); MONOCYTES % 9.3 % (0.0-11.0); NEUTROPHIL # 11.1 10^3/ul (1.6-7.5); NEUTROPHILS % 82.7 % (39.0-77.0); PLATELET COUNT 391 10^3/UL (140-415); RED BLOOD COUNT 2.96 10^6/ul (4.70-6.10); RED CELL DISTRIBUTION WIDTH 17.9 % (11.5-14.5); WHITE BLOOD COUNT 13.4 10^3/ul (4.8-10.8)
[2016-12-22 07:28] LABS: CALCIUM 9.2 mg/dl (8.4-10.2); CREATININE 4.23 mg/dl (0.61-1.24); POTASSIUM 4.8 mmol/L (3.5-5.1)
[2016-12-22] MEDS: SODIUM HYPOCHLORITE 1/40% 1L IRRIG IRR SCH (08:09)
[2016-12-22] MEDS: LEVOTHYROXINE 100 MCG TAB PO SCH (08:22)
[2016-12-22] MEDS: ESCITALOPRAM 10 MG TAB PO SCH (08:25)
[2016-12-22] MEDS: ASPIRIN (EC) 81 MG TAB PO SCH (08:28)
[2016-12-22] MEDS: LORATADINE 10 MG TAB PO SCH (08:29)
[2016-12-22] MEDS: AMIODARONE 200 MG TAB PO SCH (08:30)
[2016-12-22] MEDS: SENNA TAB PO SCH (08:30)
[2016-12-22] MEDS: DOCUSATE SODIUM 100 MG CAP PO SCH (08:32)
[2016-12-22] MEDS: LISINOPRIL 20 MG TAB PO SCH (08:36)
[2016-12-22] MEDS: CALCIUM ACETATE 667 MG CAP PO SCH ×2 (08:36→11:50)
[2016-12-22] MEDS: APIXABAN 5 MG TABLET PO SCH (08:38)
--- NOTE | 2016-12-22 09:56 | PDOCDIS ---
Discharge Instructions CONDITION Patient Condition: Stable HOME CARE INSTRUCTIONS: Special Diet: LOW FAT CHRISTEN GUERRA December 22, 2016 09:56
--- NOTE | 2016-12-22 10:32 | PN ---
Date/Time of Note Date/Time of Note DATE: 12/22/16 TIME: 10:26 Assessment/Plan VTE Prophylaxis VTE Prophylaxis Intervention: other (Elevate legs. Pt on ASA.) Lines/Catheters IV [facility] Type ([facility]): Peripheral IV Urinary Cath still in place: No Assessment/Plan Assessment/Plan 1. Left foot diabetic foot ulceration. Bedside debridement at needed. Will monitor. 2. Extensive tissue loss. Continue local wound care. Will monitor. 3. Cellulitis. Continue IV Abx. Subjective 24 Hr Interval Summary Free Text/Dictation Coverage for Dr. Sandoval. Left foot/heel diabetic foot ulceration, Extensive tissue loss, Cellulitis, End-stage renal disease, on hemodialysis, Diabetes type 2, Coronary artery disease, Atrial fibrillation, Peripheral arterial disease. Exam/Review of Systems Vital Signs Vitals Vital Signs Date Time Temp Pulse Resp B/P Pulse Ox O2 Delivery O2 Flow Rate FiO2 12/22/16 08:04 88 12/22/16 07:33 98.0 20 121/69 98 12/22/16 04:07 2.0 12/21/16 20:00 Nasal Cannula Intake and Output 12/21/16 12/21/16 12/22/16 15:00 23:00 07:00 Intake Total 300 ml 400 ml 600 ml Output Total 2300 ml Balance -2000 ml 400 ml 600 ml Exam Left foot diabetic foot ulceration. Extensive tissue loss with exposed bone. 10 x 6 cm. S/P Sx debridement 12/18/16. Results Result Diagram: 12/22/16 0615 12/22/16 0615 Results 24 hrs Laboratory Tests Test 12/22/16 06:15 White Blood Count 13.4 H Red Blood Count 2.96 L Hemoglobin 8.8 L Hematocrit 27.6 L Mean Corpuscular Volume 93.2 Mean Corpuscular Hemoglobin 29.7 Mean Corpuscular Hemoglobin Concent 31.9 L Red Cell Distribution Width 17.9 H Platelet Count 391 Mean Platelet Volume 9.9 Neutrophils % 82.7 H Lymphocytes % 5.3 L Monocytes % 9.3 Eosinophils % 1.0 Basophils % 0.4 Nucleated Red Blood Cells % 0.0 Neutrophils # 11.1 H Lymphocytes # 0.7 L Monocytes # 1.2 H Eosinophils # 0.1 Basophils # 0.1 Nucleated Red Blood Cells # 0.0 Sodium Level 140 Potassium Level 4.8 Chloride Level 100 Carbon Dioxide Level 31 Anion Gap 14 Blood Urea Nitrogen 35 H Creatinine 4.23 #H Glucose Level 92 Calcium Level 9.2 Medications Medications Current Medications Amiodarone HCl (Cordarone) 200 mg DAILY PO Last administered on 12/22/16 08:30 ; Admin Dose 200 MG; Start 12/17/16 at 09:00 Apixaban (Eliquis) 5 mg BID PO Last administered on 12/22/16 08:38; Admin Dose 5 MG; Start 12/16/16 at 21:00 Aspirin (Halfprin) 81 mg DAILY PO Last administered on 12/22/16 08:28; Admin Dose 81 MG; Start 12/17/16 at 09:00 Atorvastatin Calcium (Lipitor) 20 mg QHS PO Last administered on 12/21/16 21: 05; Admin Dose 20 MG; Start 12/16/16 at 21:00 Lactulose (Enulose) 20 gm HS PO Last administered on 12/21/16 21:05; Admin Dose 20 GM; Start 12/16/16 at 21:00 Lisinopril (Zestril) 20 mg DAILY PO Last administered on 12/22/16 08:36; Admin Dose 20 MG; Start 12/17/16 at 09:00 Loratadine (Claritin) 10 mg DAILY PO Last administered on 12/22/16 08:29; Admin Dose 10 MG; Start 12/17/16 at 09:00 Zolpidem Tartrate (Ambien) 5 mg HS PRN PO INSOMNIA Last administered on 22:49; Admin Dose 5 MG; Start 12/16/16 at 18:00 Escitalopram Oxalate (Lexapro) 5 mg DAILY PO Last administered on 12/22/16 08: 25; Admin Dose 5 MG; Start 12/17/16 at 09:00 Ondansetron HCl (Zofran Inj) 4 mg Q6H PRN IV NAUSEA AND/OR VOMITING; Start 12/16 at 16:30 Pantoprazole (Protonix Tab) 40 mg DAILY@06 PO Last administered on 12/22/16 06 :06; Admin Dose 40 MG; Start 12/17/16 at 06:00 Acetaminophen (Tylenol Tab) 650 mg Q6H PRN PO PAIN AND OR ELEVATED TEMP Last administered on 12/18/16 15:22; Admin Dose 650 MG; Start 12/16/16 at 16:30 Sodium Hypochlorite (Dakin'S (Dilute 1/40%)) 1 applic BID IRR Last administered on 12/22/16 08:09; Admin Dose 1 APPLIC; Start 12/17/16 at 09:00 Morphine Sulfate (morphine) 2 mg Q4H PRN IM SEVERE PAIN LEVEL 7-10; Start at 19:00 Acetaminophen/ Hydrocodone Bitart ([place] (7.5-325)) 1 tab Q6H PRN PO MODERATE PAIN LEVEL 4-6 Last administered on 12/21/16 08:23; Admin Dose 1 TAB; Start 12/18/16 at 19:00 Levofloxacin (Levaquin) 500 mg Q48H PO Last administered on 12/20/16 16:28; Admin Dose 500 MG; Start 12/20/16 at 16:00 Docusate Sodium (Colace) 100 mg BID PO Last administered on 12/22/16 08:32; Admin Dose 100 MG; Start 12/21/16 at 10:00 Senna 1 tab 1 tab BID PO Last administered on 12/22/16 08:30; Admin Dose 1 TAB ; Start 12/21/16 at 10:00 Vancomycin HCl/ Sodium Chloride (Vancocin/NS) 150 ml @ 75 mls/hr Q96H IVPB Last administered on 12/21/16 21:05; Admin Dose 75 MLS/HR; Start 12/21/16 at 21 :00 Lorazepam (Ativan) 1 mg Q6H PRN IV ANXIETY Last administered on 12/21/16 23:54 ; Admin Dose 1 MG; Start 12/21/16 at 22:00 TERESA PARIS DPM December 22, 2016 10:32
--- NOTE | 2016-12-22 10:34 | DS ---
DATE OF ADMISSION: 12/18/2016 DATE OF DISCHARGE: 12/22/2016 HOSPITAL COURSE: A 71-year-old male originally admitted on 12/16/2016 being discharged to [facility] facility on 12/22/2016. The patient came in from dialysis center due to low blood pressure, was found to have sepsis and possible septic shock. The source was thought to be an infection in th e left heel area. The patient was seen by multiple specialists during this hospital stay including renal team, cardiology team, podiatry team, infectious disease team and vascular surgery team. The patient had an excisional debridement performed of the left lateral foot as there was an ulceration found thought to be infected. The patient tolerated the procedure well. The patient was placed on broad-spectrum antibiotics as well, managed by infectious disease team for that as well. The patien t also received dialysis as he has a history of end-stage renal disease and he has an AV fistula in the left upper extremities. He tolerated that. He was treated for the diabetes as well. The patient was also again seen by vascular surgery team and thought to have possible peripheral art jason disease and the patient was medically managed for that. They are scheduling possible revascular ization while the patient gets antibiotics as an outpatient. Again, the patient had an excisional d ebridement of the skin, subcutaneous tissue, ligament, tendon and bone calcaneus and fibula of the l eft lateral foot area as there was an ulceration there with extensive soft tissue loss. Again, silvina ent tolerated the procedure well. They have recommended for antibiotics for 6 weeks total and those have been ordered. Because the patient's vital signs are stable, they are ambulating him and he is tolerating a p.o. diet. He will be discharged back to [facility] facility today in improved c ondition. DISCHARGE MEDICATIONS: He will be sent with the following medications: 1. Tylenol 650 q.6h. p.r.n. 2. Amiodarone 200 mg daily. 3. Eliquis 5 mg b.i.d. 4. Aspirin 81 mg daily. 5. Lipitor 20 mg at bedtime. 6. PhosLo 667 mg with meals. 7. Colace 100 mg b.i.d. 8. Lexapro 5 mg daily. 9. [place] 7.5/325 q.6h. p.r.n. 10. Lactulose 20 g at bedtime. 11. Xopenex nebulizers q.6h. 12. Levaquin 500 mg q.48h. until 02/01/2017, so for a total of 6 weeks. 13. Synthroid 100 mcg every morning. 14. Zestril 20 mg daily. 15. Claritin 10 mg daily. 16. Ativan 1 mg IV q.6h. p.r.n. 17. Morphine 2 mg intramuscular q.4h. p.r.n. 18. Zofran 4 mg IV q.6h. p.r.n. 19. Protonix 40 mg daily. 20. Senna 1 tab b.i.d. 21. Dakin's solution irrigation 2 times a day. 22. Vancomycin IV dosing per pharmacy for 6 weeks total until 02/01/2017. 23. Ambien 5 mg at bedtime p.r.n. FOLLOWUP: The patient to follow up with primary care doctor in clinic in the next 1 to 2 weeks. FINAL DIAGNOSES: 1. Hypotension and sepsis, again secondary to infected heel ulcer, status post excisional debrideme nt performed of the left lateral foot as there was an ulceration found there, now on broad-spectrum antibiotics. 2. Essential hypertension. 3. Hypothyroidism. 4. Chronic atrial fibrillation, on Eliquis for anticoagulation. 5. End-stage renal disease, on dialysis. 6. Peripheral artery disease. 7. Anemia. 8. History of cirrhosis. 9. History of chronic obstructive pulmonary disease. Time spent discharging patient 45 minutes. Dictated By: CHRISTEN WATTS Conf#: [id number] DID#: [id number]
--- NOTE | 2016-12-22 14:45 | CONS ---
Date/Time of Note Date/Time of Note DATE: 12/22/16 TIME: 14:32 Assessment/Plan Assessment/Plan Chief Complaint/Hosp Course - sepsis due to infected wound of L heel - diabetic infection of L foot (heel), soft tissue damage s/p excisional debridement 12/18/2016 - ESRD on HD via AVF in LUE - DM - HTN associated with DM - PAD - CAD and CHF - A fib - HR stable - COPD and asthma - hypothyroidism - anemia - liver cirrhosis per EMR - elevated alk phos, source can be either the biliary tract or bone Recommendations: - Continue IV Vanco (12/16/2016-) with HD x 6 weeks - Continue PO Levaquin x 6 weeks. - probiotics - outpatient f/u with Dr. Rodriguez next week. Management d/w nursing staff and Dr. Rodriguez Problems: Consultation Date/Type/Reason Admit Date/Time December 18, 2016 at 09:46 Initial Consult Date 12/17/16 Type of Consultation: Infectious Disease Referring Provider: ANDREA ALVARADO 24 HR Interval Summary Free Text/Dictation Lethargic this AM but pt able to AM meds; DC planning for home today per CORDELL Ordonez. Unable to perform ROS as pt is too sleepy. Denies pain. Exam/Review of Systems Vital Signs Vitals Vital Signs Date Time Temp Pulse Resp B/P Pulse Ox O2 Delivery O2 Flow Rate FiO2 12/22/16 12:00 70 12/22/16 11:23 98.0 20 137/79 98 12/22/16 08:15 Nasal Cannula 2.0 Intake and Output 12/21/16 12/21/16 12/22/16 15:00 23:00 07:00 Intake Total 300 ml 400 ml 600 ml Output Total 2300 ml Balance -2000 ml 400 ml 600 ml Exam Constitutional: alert, non-verbal, other (sleeping but easily arousable), well developed Head: atraumatic, normocephalic Eyes: nl sclera ENMT: other (Bottom lips and tongue with dried blood; sharp tooth noted) Neck: supple Respiratory: clear to auscultation, normal air movement Cardiovascular: irregular rhythm Gastrointestinal: soft, No tender Genitourinary - Male: nl penis, nl scrotum Musculoskeletal: spine non-tender Extremities: other (LUE AVF with +bruit/thrill), No cyanosis, No edema Neurological: lethargic, other (Selectively answers simple questions non- verbally when spoken to in Salvadorean) Skin: nl turgor, other (Wound - see nurse note for details; Left heel dressing c/d/i; few small scabs noted on bilateral pederson) Results Result Diagram: 12/22/16 0615 12/22/16 0615 Results 24 hrs Laboratory Tests Test 12/22/16 06:15 White Blood Count 13.4 H Red Blood Count 2.96 L Hemoglobin 8.8 L Hematocrit 27.6 L Mean Corpuscular Volume 93.2 Mean Corpuscular Hemoglobin 29.7 Mean Corpuscular Hemoglobin Concent 31.9 L Red Cell Distribution Width 17.9 H Platelet Count 391 Mean Platelet Volume 9.9 Neutrophils % 82.7 H Lymphocytes % 5.3 L Monocytes % 9.3 Eosinophils % 1.0 Basophils % 0.4 Nucleated Red Blood Cells % 0.0 Neutrophils # 11.1 H Lymphocytes # 0.7 L Monocytes # 1.2 H Eosinophils # 0.1 Basophils # 0.1 Nucleated Red Blood Cells # 0.0 Sodium Level 140 Potassium Level 4.8 Chloride Level 100 Carbon Dioxide Level 31 Anion Gap 14 Blood Urea Nitrogen 35 H Creatinine 4.23 #H Glucose Level 92 Calcium Level 9.2 Medications Medications Current Medications Amiodarone HCl (Cordarone) 200 mg DAILY PO Last administered on 12/22/16 08:30 ; Admin Dose 200 MG; Start 12/17/16 at 09:00 Apixaban (Eliquis) 5 mg BID PO Last administered on 12/22/16 08:38; Admin Dose 5 MG; Start 12/16/16 at 21:00 Aspirin (Halfprin) 81 mg DAILY PO Last administered on 12/22/16 08:28; Admin Dose 81 MG; Start 12/17/16 at 09:00 Atorvastatin Calcium (Lipitor) 20 mg QHS PO Last administered on 12/21/16 21: 05; Admin Dose 20 MG; Start 12/16/16 at 21:00 Lactulose (Enulose) 20 gm HS PO Last administered on 12/21/16 21:05; Admin Dose 20 GM; Start 12/16/16 at 21:00 Lisinopril (Zestril) 20 mg DAILY PO Last administered on 12/22/16 08:36; Admin Dose 20 MG; Start 12/17/16 at 09:00 Loratadine (Claritin) 10 mg DAILY PO Last administered on 12/22/16 08:29; Admin Dose 10 MG; Start 12/17/16 at 09:00 Zolpidem Tartrate (Ambien) 5 mg HS PRN PO INSOMNIA Last administered on 22:49; Admin Dose 5 MG; Start 12/16/16 at 18:00 Escitalopram Oxalate (Lexapro) 5 mg DAILY PO Last administered on 12/22/16 08: 25; Admin Dose 5 MG; Start 12/17/16 at 09:00 Ondansetron HCl (Zofran Inj) 4 mg Q6H PRN IV NAUSEA AND/OR VOMITING; Start 12/16 at 16:30 Pantoprazole (Protonix Tab) 40 mg DAILY@06 PO Last administered on 12/22/16 06 :06; Admin Dose 40 MG; Start 12/17/16 at 06:00 Acetaminophen (Tylenol Tab) 650 mg Q6H PRN PO PAIN AND OR ELEVATED TEMP Last administered on 12/18/16 15:22; Admin Dose 650 MG; Start 12/16/16 at 16:30 Sodium Hypochlorite (Dakin'S (Dilute 1/40%)) 1 applic BID IRR Last administered on 12/22/16 08:09; Admin Dose 1 APPLIC; Start 12/17/16 at 09:00 Morphine Sulfate (morphine) 2 mg Q4H PRN IM SEVERE PAIN LEVEL 7-10; Start at 19:00 Acetaminophen/ Hydrocodone Bitart ([place] (7.5-325)) 1 tab Q6H PRN PO MODERATE PAIN LEVEL 4-6 Last administered on 12/21/16 08:23; Admin Dose 1 TAB; Start 12/18/16 at 19:00 Levofloxacin (Levaquin) 500 mg Q48H PO Last administered on 12/20/16 16:28; Admin Dose 500 MG; Start 12/20/16 at 16:00 Docusate Sodium (Colace) 100 mg BID PO Last administered on 12/22/16 08:32; Admin Dose 100 MG; Start 12/21/16 at 10:00 Senna 1 tab 1 tab BID PO Last administered on 12/22/16 08:30; Admin Dose 1 TAB ; Start 12/21/16 at 10:00 Vancomycin HCl/ Sodium Chloride (Vancocin/NS) 150 ml @ 75 mls/hr Q96H IVPB Last administered on 12/21/16 21:05; Admin Dose 75 MLS/HR; Start 12/21/16 at 21 :00 Lorazepam (Ativan) 1 mg Q6H PRN IV ANXIETY Last administered on 12/21/16 23:54 ; Admin Dose 1 MG; Start 12/21/16 at 22:00 ROD PONCE NP December 22, 2016 14:43
--- NOTE | 2016-12-22 16:24 | QN ---
Documentation Comment [id number] MAGUI PINEDA MD December 22, 2016 16:24
--- NOTE | 2016-12-22 16:34 | PN ---
DATE: 12/22/2016 NEPHROLOGY PROGRESS NOTE PHYSICAL EXAMINATION VITAL SIGNS: The patient's vital signs are stable. GENERAL: The patient is not in distress. NECK: Supple. LUNGS: Clear. CARDIOVASCULAR: S1, S2 normal. ABDOMEN: Soft. EXTREMITIES: No edema. LABORATORY DATA: WBC 13.4, hematocrit 27.6. IMPRESSION: 1. Sepsis. 2. Peripheral vascular disease. 3. End-stage renal disease. 4. Anemia. 5. Leukocytosis. PLAN: To continue hemodialysis Monday, Monday, Monday. Dictated By: MAGUI PINEDA MD BS/NTS Conf#: [id number] DID#: [id number]
== END 2016-12-22 15:15 | DRG 853 ==
LOC: E/R 09:23 → TEL 12:07 → OBSVTOIN 12-18 09:46
PROVIDERS: ADMIT Family Medicine; ATTEND Family Medicine
PROC: 5A1D60Z (ICD-10-PCS; 2016-12-17)
PROC: 0QBK0ZZ Excision of Left Fibula, Open Approach (ICD-10-PCS; principal; 2016-12-18)
PROC: 0QBM0ZZ Excision of Left Tarsal, Open Approach (ICD-10-PCS; 2016-12-18)
PROC: 30233N1 Transfusion of Nonautologous Red Blood Cells into Peripheral Vein, Percutaneous Approach (ICD-10-PCS; 2016-12-19)
DX: A41.9 Sepsis, unspecified organism (principal); R65.21 Severe sepsis with septic shock; L89.151 Pressure ulcer of sacral region, stage 1; I12.0 Hypertensive chronic kidney disease with stage 5 chronic kidney disease or end stage renal disease; N18.6 End stage renal disease; E11.22 Type 2 diabetes mellitus with diabetic chronic kidney disease; I48.2 Chronic atrial fibrillation; M86.8X7 Other osteomyelitis, ankle and foot; Z99.2 Dependence on renal dialysis; H54.8 Legal blindness, as defined in USA; E03.9 Hypothyroidism, unspecified; E78.5 Hyperlipidemia, unspecified; Z79.02 Long term (current) use of antithrombotics/antiplatelets; D63.1 Anemia in chronic kidney disease; F17.200 Nicotine dependence, unspecified, uncomplicated; L89.620 Pressure ulcer of left heel, unstageable; L89.891 Pressure ulcer of other site, stage 1; K74.60 Unspecified cirrhosis of liver; I70.213 Atherosclerosis of native arteries of extremities with intermittent claudication, bilateral legs; K74.69 Other cirrhosis of liver
CPT/HCPCS: 36430; 71010; 73718; 73721; 80048; 80053; 80202; 82962; 83735; 83880; 84100; 84443; 84484; 85014; 85018; 85025; 85651; 86704; 86709; 86803; 86850; 86900; 86901; 86920; 87040; 87070; 87081; 87340; 90935; 93005; 93306; 93922; 96374; 96375; G0378; J1956; J2060; J2185; J3370; P9016